=== PATIENT | female | born 1975 | race Caucasian/White ===

== ENCOUNTER 2018-02-07 10:00 | Emergency (ER) | payer OTHER, MEDICAID, SELFPAY ==
[2018-02-07 10:09] VITALS: BP 149/90; PULSE 72; RESP 14; TEMP 36.3; O2SAT 98
--- NOTE | 2018-02-07 10:24 | ED_ITS ---
HPI - Ear Problem General Chief complaint: Ear Stated complaint: Ear pain Time Seen by Provider: 02/07/18 10:11 Source: patient Mode of arrival: ambulatory Limitations: no limitations History of Present Illness HPI Narrative: The patient is a 42-year-old female who presents with bilateral ear pain which started yesterday. She says she feels like she can hear herself cough she has had cold. No throat pain no fever. She has no sinus congestion or facial tenderness. She denies cough or chest pain. MD Complaint: ear pain Location: bilateral Duration: constant Severity: mild Relieving factors: nothing Exacerbating factors: nothing Discharge from ear: no Associated symptoms ear: decreased hearing Treatment prior to arrival: none Related Data Home Medications Medication Instructions Recorded Confirmed [place] 5/16 Inch units SQ HS #50 08/07/16 12/03/17 Previous Rx's Medication Instructions Recorded cholecalciferol (vitamin D3) 1 tab PO QDAY #90 tab 02/29/16 [Vitamin D3] Lancets units QID #150 07/08/16 albuterol sulfate 3 ml INH Q6H #1 box 11/14/16 CPAP: CPAP/PAP Full Face Mask u #1 01/31/17 Glucose: Test Strips 0 str TD QID #200 str 05/02/17 albuterol sulfate HFA 90 2 puff INHALATION SEE INSTRUCTIONS 08/05/17 mcg/actuation aerosol inhaler PRN #1 gm aspirin 81 mg tablet,delayed 81 mg PO BID #30 tab 08/05/17 release clonazepam 1 mg tablet 1 mg PO BID #180 tab 08/05/17 divalproex 250 mg tablet,delayed 250 mg PO BID #60 tab 08/05/17 release fenofibrate 160 mg tablet 160 mg PO QDAY #90 tab 08/05/17 glyburide 5 mg tablet 5 mg PO BID #180 tab 08/05/17 insulin glargine (U-100) 100 40 unit SUBCUT HS #30 each 08/05/17 unit/mL (3 mL) subcutaneous pen lisinopril 5 mg tablet 5 mg PO QDAY #90 tab 08/05/17 metformin 500 mg tablet 1,000 mg PO BIDCC #120 tab 08/05/17 omeprazole 40 mg capsule,delayed 40 mg PO QAM #30 cap 08/05/17 release spironolactone 100 mg tablet 100 mg PO QDAY #30 tab 08/05/17 fluconazole 150 mg tablet 150 mg PO ONCE #2 tab 12/02/17 Allergies Allergy/AdvReac Type Severity Reaction Status Date / Time cephalexin [CEPHALEXIN] Allergy Mild rash Verified 12/02/17 15:46 ibuprofen [From Motrin] Allergy Mild Verified 02/07/18 10:12 latex [LATEX] Allergy Mild unknown Verified 12/02/17 15:46 Review of Systems Review of Systems GENERAL: Denies chills, fatigue, malaise, fever, sweats, travel HEENT: See HPI RESPIRATORY: Denies dyspnea, cough, wheezing, hemoptysis, sputum. CARDIOVASCULAR: Denies chest pain, palpitations, orthopnea, edema GASTROINTESTINAL: Denies nausea, vomiting, abdominal pain, diarrhea, constipation, melena. : Denies dysuria, frequency, incontinence, hematuria, urinary retention, flank pain. MUSCULOSKELETAL: Denies weakness, joint pain, or bony pain SKIN: No rash, no erythema, no pruritus NEUROLOGIC: Denies weakness, dizziness, headache, numbness, change in speech, confusion PSYCHIATRIC: No concerning psychosocial issues. 12 point review of systems is negative except for those stated above and HPI PFSH Medical History Anxiety (Chronic) Depression (Chronic) Diabetes mellitus (Chronic 2014) Sleep apnea (Chronic 2014) Social History Smoking Status: Current every day smoker Exam Initial Vital Signs Initial Vital Signs: Vital Signs Temperature 97.3 F L 02/07/18 10:09 Pulse Rate 72 02/07/18 10:09 Respiratory Rate 14 02/07/18 10:09 Blood Pressure 149/90 H 02/07/18 10:09 Pulse Oximetry 98 02/07/18 10:09 GENERAL: Overweight female in no acute distress HEENT: Head atraumatic,EOMI, pupils reactive, face symmetric, moist mucous membranes EARS: Tympanic membranes visualized, no erythema or bulging, no hemotympanum PHARYNX: No erythema, no tonsillar exudate, no cervical lymphadenopathy CARDIOVASCULAR: Regular rate and rhythm without murmurs, rubs or gallops. RESPIRATORY: Breath sounds equal bilaterally, no wheezes rales or rhonchi. ABDOMEN: Soft, nontender. Normoactive bowel sounds all 4 quadrants. No guarding or rebound. EXTREMITIES: Normal range of motion, no clubbing or edema. Neurovascularly intact NEUROLOGICAL: Alert and oriented x4.Normal gait and speech. SKIN: Warm, dry, no laceration, no petechiae, no rashes or lesions. Course Vital Signs - 8 hr 02/07/18 10:09 Temperature 97.3 F L Pulse Rate 72 Respiratory Rate 14 Blood Pressure 149/90 H Pulse Oximetry 98 Discharge Plan Departure Patient Disposition: Home Clinical Impression: Upper respiratory infection Discharge Date/Time: 02/07/18 10:31 Interventions: ED Discharge Assessment Last Done: 02/07/18 10:30 Instructions: DI for Viral Upper Respiratory Infection -- Adult Activity Restrictions/Additional Instructions: *You have been diagnosed with upper respiratory infection *What to do: At this time this is common cold, recommend rest and fluids. *Continue to take medications as directed Tylenol 650 mg every 4-6 hours if needed for pain or fever *Follow up with your primary care provider in 2-3 days *Return to ER if you should have or any new, worsening or concerning symptoms Prescriptions: No Action cholecalciferol (vitamin D3) [Vitamin D3] 2,000 UNIT tablet 1 tab PO QDAY Qty: 90 RF: 3 Lancets QID Qty: 150 RF: 11 [place] 5/16 Inch SQ HS Qty: 50 RF: 11 albuterol sulfate 2.5 MG/3 ML solution for nebulization 3 ml INH Q6H Qty: 1 RF: 1 CPAP: CPAP/PAP Full Face Mask Qty: 1 RF: 0 Glucose: Test Strips TD QID Qty: 200 RF: 11 clonazepam [Klonopin] 1 mg tablet 1 mg PO BID Qty: 180 RF: 0 divalproex [Depakote] 250 mg tablet,delayed release (DR/EC) 250 mg PO BID Qty: 60 RF: 11 fenofibrate 160 mg tablet 160 mg PO QDAY Qty: 90 RF: 3 glyburide 5 mg tablet 5 mg PO BID Qty: 180 RF: 3 insulin glargine [Basaglar KwikPen U-100 Insulin] 100 unit/mL (3 mL) insulin pen 40 unit SUBCUT HS Qty: 30 RF: 10 lisinopril [Zestril] 5 mg tablet 5 mg PO QDAY Qty: 90 RF: 6 metformin [Glucophage] 500 mg tablet 1,000 mg PO BIDCC Qty: 120 RF: 6 omeprazole 40 mg capsule,delayed release(DR/EC) 40 mg PO QAM Qty: 30 RF: 11 spironolactone [Aldactone] 100 mg tablet 100 mg PO QDAY Qty: 30 RF: 12 aspirin 81 mg tablet,delayed release (DR/EC) 81 mg PO BID Qty: 30 RF: 12 albuterol sulfate [Ventolin HFA] 90 mcg/actuation HFA aerosol inhaler 2 puff INHALATION SEE INSTRUCTIONS PRN (Reason: shortness of breath) Qty: 1 RF: 11 fluconazole 150 mg tablet 150 mg PO ONCE Qty: 2 RF: 0 Referrals: Adán Durbin MD [Primary Care Provider] - ED Cosign/Signout Cosign ED Attending Cosignature Attestation: I was immediately available in the department for consultation. Documentation has been reviewed. I agree with assessment and plan.
== END 2018-02-07 10:31 | disposition home or self-care (01) ==
PROVIDERS: Emergency Provider Emergency Medicine; Family Provider Family Medicine; PCP Student in an Organized Health Care Education/Training Program
DX: J06.9 Acute upper respiratory infection, unspecified (principal)
CPT/HCPCS: 99282

== ENCOUNTER 2018-04-08 17:57 | Emergency (ER) | payer OTHER, MEDICAID, SELFPAY ==
[2018-04-08] VITALS (10 sets, daily range): BP systolic 117–179; BP diastolic 62–104; PULSE 75–97; RESP 11–27; TEMP 37.2; O2SAT 94–99
--- NOTE | 2018-04-08 18:17 | DI.RAD.S_ITS ---
PROCEDURE: XR CHEST 1V INDICATIONS: chest pain, sob TECHNIQUE: One view of the chest was acquired. COMPARISON: [facility], , CHEST 2 VIEW, 11/14/2016, 9:59. FINDINGS: Surgical changes and devices: None. Lungs and pleura: Lungs are clear. No pleural effusions or pneumothorax. Mediastinum: Mediastinal contours appear normal. Heart size is mildly enlarged. Bones and chest wall: No suspicious bony lesions. Overlying soft tissues appear unremarkable. IMPRESSION: No acute pulmonary pathology. Dictated by: Neo Ndiaye M.D. on 04/08/2018 at 18:58 Approved by: Neo Ndiaye M.D. on 04/08/2018 at 19:00
--- NOTE | 2018-04-08 18:19 | ED.CHESTPAIN ---
HPI - Chest Pain General Chief Complaint: Chest Pain Stated Complaint: CHEST PAIN Time Seen by Provider: 04/08/18 18:06 Source: patient Mode of arrival: ambulatory Limitations: no limitations History of Present Illness HPI narrative: Patient is a 43-year-old female with history of hypertension, diabetes and smoking presenting with chest discomfort. She says it is heaviness on center of her chest over to her left side it started last evening. It has been constant throughout the day. It is without exacerbating or relieving factors. She says it does hurt every time she breathes or moves. She feels like she strained something but she is not sure what she did. She feels heaviness in the center of her chest. It is nonradiating. She also has some mild epigastric pain she feels like it is going up. No nausea vomiting. She denies any productive cough or significant shortness of breath. Although she does feel like she can't take a deep breath due to pain. MD complaint: chest pain Onset (ago): hour(s) Duration: constant Onset: during rest Pain location: substernal and left chest Severity: severe Quality: heaviness Pain radiation: none Relieving factors: nothing Exacerbating factors: nothing Treatments prior to arrival chest pain: none Related Data Home Medications Medication Instructions Recorded Confirmed [place] 5/16 Inch units SQ HS #50 08/07/16 12/03/17 Previous Rx's Medication Instructions Recorded cholecalciferol (vitamin D3) 1 tab PO QDAY #90 tab 02/29/16 [Vitamin D3] Lancets units QID #150 07/08/16 albuterol sulfate 3 ml INH Q6H #1 box 11/14/16 CPAP: CPAP/PAP Full Face Mask u #1 01/31/17 Glucose: Test Strips 0 str TD QID #200 str 05/02/17 albuterol sulfate HFA 90 2 puff INHALATION SEE INSTRUCTIONS 08/05/17 mcg/actuation aerosol inhaler PRN #1 gm aspirin 81 mg tablet,delayed 81 mg PO BID #30 tab 08/05/17 release clonazepam 1 mg tablet 1 mg PO BID #180 tab 08/05/17 divalproex 250 mg tablet,delayed 250 mg PO BID #60 tab 08/05/17 release fenofibrate 160 mg tablet 160 mg PO QDAY #90 tab 08/05/17 glyburide 5 mg tablet 5 mg PO BID #180 tab 08/05/17 insulin glargine (U-100) 100 40 unit SUBCUT HS #30 each 08/05/17 unit/mL (3 mL) subcutaneous pen lisinopril 5 mg tablet 5 mg PO QDAY #90 tab 08/05/17 metformin 500 mg tablet 1,000 mg PO BIDCC #120 tab 08/05/17 omeprazole 40 mg capsule,delayed 40 mg PO QAM #30 cap 08/05/17 release spironolactone 100 mg tablet 100 mg PO QDAY #30 tab 08/05/17 fluconazole 150 mg tablet 150 mg PO ONCE #2 tab 12/02/17 Allergies Allergy/AdvReac Type Severity Reaction Status Date / Time cephalexin [CEPHALEXIN] Allergy Mild rash Verified 04/08/18 18:05 ibuprofen [From Motrin] Allergy Mild Verified 04/08/18 18:05 latex [LATEX] Allergy Mild unknown Verified 04/08/18 18:05 Review of Systems Review of Systems ROS Unobtainable: All systems reviewed & are unremarkable except as noted in HPI and below Constitutional Denies chills, Denies fatigue, Denies fever(s), Denies lethargy and Denies weakness Cardiovascular Reports as per HPI Respiratory Denies cough, Denies hemoptysis and Denies wheezing Gastrointestinal Gastrointestinal: Denies abdominal pain, Denies change in bowel habits, Denies diarrhea, Denies nausea and Denies vomiting Genitourinary Denies hematuria, Denies flank pain, Denies urinary incontinence and Denies urinary urgency Musculoskeletal Denies back pain, Denies muscle weakness, Denies numbness and Denies tingling Integumentary/Breasts Denies pruritus, Denies erythema, Denies rash and Denies wounds Neurologic Denies confusion, Denies numbness, Denies tingling and Denies weakness Psychiatric Denies anxiety, Denies confusion, Denies depression, Denies homicidal ideation and Denies suicidal ideation Endocrine Denies fatigue and Denies flushing Allergic/Immunologic Denies wheezing [facility] Medical History Anxiety (Chronic) Depression (Chronic) Diabetes mellitus (Chronic 2014) Sleep apnea (Chronic 2014) Social History Smoking Status: Current every day smoker Social History Smoking Status: Current every day smoker Exam Initial Vital Signs Initial Vital Signs: Vital Signs Temperature 98.9 F 04/08/18 17:58 Pulse Rate 89 04/08/18 17:58 Respiratory Rate 12 04/08/18 17:58 Blood Pressure 179/104 H 04/08/18 17:58 Pulse Oximetry 97 04/08/18 17:58 GENERAL: Overweight alert female no acute distress HEENT: Head atraumatic,EOMI, pupils reactive, CARDIOVASCULAR: Regular rate and rhythm without murmurs, rubs or gallops. RESPIRATORY: Breath sounds equal bilaterally, no wheezes rales or rhonchi. ABDOMEN: Soft, obese, mild epigastric pain mild right upper quadrant pain no guarding no rebound is no lower abdominal pain EXTREMITIES: Normal range of motion, no clubbing or edema. Neurovascularly intact NEUROLOGICAL: Alert and oriented x4.Normal gait and speech. SKIN: Warm, dry, no laceration, no petechiae, no rashes or lesions. Scores HEART Score Heart Score history: Slightly Suspicious Heart Score EKG: Normal Heart Score Age: < 45 years old Heart Score risk factors: > 3 risk factors or hx of atherosclerotic disease Heart Score troponin: < or = to normal limit Heart Score Total: 2 Course Orders Ordered: ED Orders 04/08/18 18:04 EKG-12 Lead Stat EKG-12 Lead Stat 04/08/18 18:17 XR chest 1V Stat 04/08/18 18:45 B Type Natriuretic Peptide Stat Complete Blood Count AUTO DIFF Stat Comprehensive Metabolic Panel Stat Lipase Stat Partial Thromboplastin Time Stat Prothrombin Time INR Stat Troponin & CK Cardiac Panel Stat 04/08/18 19:40 EKG-12 Lead Stat 04/08/18 21:00 Troponin I Stat Discontinued Medications Acetaminophen (Tylenol) 975 mg PO NOW ONE Stop: 04/08/18 21:59 Last Admin: 04/08/18 22:24 Dose: 975 mg Albuterol/Ipratropium (Duoneb) 3 ml INH NOW ONE Stop: 04/08/18 18:18 Last Admin: 04/08/18 18:36 Dose: 3 ml Aspirin (Aspirin Chew) 324 mg PO NOW ONE Stop: 04/08/18 18:18 Last Admin: 04/08/18 18:46 Dose: 324 mg Morphine Sulfate (Morphine) 2 mg IV NOW ONE Stop: 04/08/18 19:16 Last Admin: 04/08/18 19:26 Dose: 2 mg Nitroglycerin (Nitrostat) 0.4 mg SL NOW ONE Stop: 04/08/18 18:19 Last Admin: 04/08/18 19:02 Dose: 0.4 mg Vital Signs - 8 hr 04/08/18 17:58 04/08/18 18:30 04/08/18 18:37 Temperature 98.9 F Pulse Rate 89 86 87 Respiratory Rate 12 11 L 18 Blood Pressure 179/104 H Blood Pressure [Right Wrist] 158/93 H Pulse Oximetry 97 96 99 04/08/18 19:02 04/08/18 19:30 04/08/18 20:00 Temperature Pulse Rate 97 H 75 82 Respiratory Rate 21 27 H Blood Pressure 145/62 H Blood Pressure [Right Wrist] 138/88 134/75 Pulse Oximetry 97 97 04/08/18 20:30 04/08/18 21:00 04/08/18 21:30 Temperature Pulse Rate 91 H 86 80 Respiratory Rate 21 20 22 Blood Pressure Blood Pressure [Right Wrist] 128/80 151/94 H 117/75 Pulse Oximetry 94 96 96 04/08/18 22:30 Temperature Pulse Rate 87 Respiratory Rate 18 Blood Pressure 149/95 H Blood Pressure [Right Wrist] Pulse Oximetry 96 MDM - Chest Pain Differential Diagnosis Likely other ( I have considered several life threatening etiologies for the patients Chest pain such as acute coronary syndrome, aortic dissection, pulmonary emboli and this patients presentation is not consistent with such entities and therefore , no further testing was warranted. ) Lab Data Attestation: I reviewed the patient's lab results. Result diagrams: 04/08/18 18:45 04/08/18 18:45 Lab Results 04/08/18 04/08/18 04/08/18 Range/Units 18:45 18:45 18:45 WBC 10.4 (4.5-11.0) X10^3/uL RBC 4.86 (4.0-5.2) X10^6/uL Hgb 15.1 (12.0-16.0) g/dL Hct 42.8 (36-46) % MCV 88.0 (80-100) fL MCH 31.2 (26-34) PG MCHC 35.4 (30-36) % RDW 14.2 (11.6-14.8) % Plt Count 283 (150-400) X10^3/uL Neut % (Auto) 69.9 (50-75) % Lymph % (Auto) 24.6 L (25-40) % [place] % (Auto) 3.0 (3-14) % Eos % (Auto) 1.4 L (2-4) % Baso % (Auto) 1.1 (0-2) % Neut # (Auto) 7300 H (2132-1251) /uL Lymph # (Auto) 2600 (8077-7080) /uL [place] # (Auto) 300 (0-900) /uL Eos # (Auto) 100 (0-450) /uL Baso # (Auto) 100 (0-100) /uL PT TNP INR TNP APTT TNP Sodium 132 L (137-145) mmol/L Potassium 4.1 (3.4-5.1) mmol/L Chloride 98 (98-107) mmol/L Carbon Dioxide 22 (22-32) mmol/L BUN 11 (7-17) mg/dL Creatinine 0.50 L (0.52-1.04) mg/dL Estimated GFR > 60.0 (>60) mL/min BUN/Creatinine Ratio 22.0 (6-22) Glucose 352 H (70-100) mg/dL Calcium 8.8 (8.4-10.2) mg/dL Total Bilirubin 0.9 (0.2-1.3) mg/dL AST 24 (14-36) IU/L ALT 31 (9-52) IU/L Alkaline Phosphatase 81 (38-126) U/L Total Creatine Kinase 33 (30-135) U/L CK-MB (CK-2) TNP CK-MB (CK-2) Rel Index TNP Troponin I < 0.012 (0.01-0.034) ng/mL B-Natriuretic Peptide < 100 (<100) Total Protein 7.6 (6.3-8.2) g/dL Albumin 3.9 (3.5-5.0) g/dL Globulin 3.7 (1.7-4.1) g/dL Albumin/Globulin Ratio 1.1 (1.0-2.8) Lipase 137 (23-300) U/L 02/13/19 Range/Units 21:00 WBC (4.5-11.0) X10^3/uL RBC (4.0-5.2) X10^6/uL Hgb (12.0-16.0) g/dL Hct (36-46) % MCV (80-100) fL MCH (26-34) PG MCHC (30-36) % RDW (11.6-14.8) % Plt Count (150-400) X10^3/uL Neut % (Auto) (50-75) % Lymph % (Auto) (25-40) % [place] % (Auto) (3-14) % Eos % (Auto) (2-4) % Baso % (Auto) (0-2) % Neut # (Auto) (5295-3550) /uL Lymph # (Auto) (4314-5539) /uL [place] # (Auto) (0-900) /uL Eos # (Auto) (0-450) /uL Baso # (Auto) (0-100) /uL PT INR APTT Sodium (137-145) mmol/L Potassium (3.4-5.1) mmol/L Chloride (98-107) mmol/L Carbon Dioxide (22-32) mmol/L BUN (7-17) mg/dL Creatinine (0.52-1.04) mg/dL Estimated GFR (>60) mL/min BUN/Creatinine Ratio (6-22) Glucose (70-100) mg/dL Calcium (8.4-10.2) mg/dL Total Bilirubin (0.2-1.3) mg/dL AST (14-36) IU/L ALT (9-52) IU/L Alkaline Phosphatase (38-126) U/L Total Creatine Kinase (30-135) U/L CK-MB (CK-2) CK-MB (CK-2) Rel Index Troponin I < 0.012 (0.01-0.034) ng/mL B-Natriuretic Peptide (<100) Total Protein (6.3-8.2) g/dL Albumin (3.5-5.0) g/dL Globulin (1.7-4.1) g/dL Albumin/Globulin Ratio (1.0-2.8) Lipase (23-300) U/L Urine Dip Bedside Urine Glucose 1000 mg/dl Bedside Urine Bilirubin - Negative Bedside Urine Ketone - Negative Urine Specific [place] 1.020 Bedside Urine Occult Blood - Negative Bedside Urine pH 6.0 Bedside Urine Protein - Negative Bedside Urine Urobilinogen - Negative Bedside Urine Nitrite - Negative Bedside Urine Leukocytes - Negative Esterase Imaging Data Chest x-ray: Radiologist's impression: PROCEDURE: XR CHEST 1V INDICATIONS: chest pain, sob TECHNIQUE: One view of the chest was acquired. COMPARISON: [facility], CHEST 2 VIEW, 11/14/2016, 9:59. FINDINGS: Surgical changes and devices: None. Lungs and pleura: Lungs are clear. No pleural effusions or pneumothorax. Mediastinum: Mediastinal contours appear normal. Heart size is mildly enlarged. Bones and chest wall: No suspicious bony lesions. Overlying soft tissues appear unremarkable. IMPRESSION: No acute pulmonary pathology. Dictated by: Neo Ndiaye M.D. on 04/08/2018 at 18:58 ECG Data Attestation: I personally reviewed and interpreted this ECG as follows: Prior ECG tracings: available for review Interpretation: EKG 1.: Normal sinus rhythm rate 81 NM interval 173 T-wave inversions noted in V2 and V3 which were present in previous EKGs in 2012. no ST elevations or depressions. EKG 2. Sinus rhythm rate 96 persistent T-wave inversions in V2 and V3 no ST elevations or depressions unchanged from prior MDM Narrative Medical decision making narrative: The patient had no relief with albuterol or nitro. She was given morphine which she said definitely took the edge off. This hurts every time she breathes or moves, this is consistent more with musculoskeletal pain rather than cardiac. She slipped on the ice yesterday but caught herself. She feels like maybe she pulled a muscle. Lab did call and say she has extreme lipema and unable to perform coagulation test. Patient states that she is only taking her insulin not her blood pressure or cholesterol medication. She does not like the way they make her feel. 10 pm 2 troponins are negative. Patient has been relatively chest pain-free until now. she says the pain is starting to come back. We discussed admission. My concern with her is that she is noncompliant she does have a like lipemia in the blood and has multiple risk factors. Discussed with her her blood work. patient's chest pain does sound musculoskeletal. it is reproducible with movement, not relieved with albuterol, or nitroglycerin or aspirin. patient states that she needs to go home and take care of her mother and go to [place] tomorrow. She really is not want to stay. She understands the risk of heart attack. We discussed how that she needs to stop at nearest hospital if she is having any further chest pain. I discussed all findings with the patient. Education has been performed regarding treatment plan, diagnosis, warning signs and symptoms and all concerns have been addressed. Verbally agree with and understood all of the above. The patient is clinically sober, free from distracting injury, appears to have intact insight, judgment and reason. Does not meet criteria for involuntary hospitalization. Patient has the capacity to make decisions. Discharge Plan Departure Patient Disposition: Home Clinical Impression: Atypical chest pain Discharge Date/Time: 04/08/18 22:31 Interventions: ED Discharge Assessment Last Done: 04/08/18 22:30 Instructions: DI for Atypical Chest Pain Activity Restrictions/Additional Instructions: *You have been diagnosed with atypical chest pain *What to do: - IS RECOMMENDED THAT YOU STAY FOR OBSERVATION AND FURTHER CARDIAC TESTING -you do need further heart evaluation such as a stress test. yOU also need to restart taking your cholesterol and blood pressure medicine as prescribed. Your cholesterol is likely uncontrolled and may contribute to higher risk of heart attack *Continue to take medications as directed *Follow up with your primary care provider in 2-3 days *Return to ER if you should have increasing chest pain, shortness of breath, difficulty breathing or any new, worsening or concerning symptoms IF YOU SHOULD HAVE ANY INCREASED CHEST PAIN OR SHORTNESS OF BREATH AT ANY TIME PLEASE GO TO THE NEAREST HOSPITAL IMMEDIATELY FOR EVALUATION Prescriptions: No Action cholecalciferol (vitamin D3) [Vitamin D3] 2,000 UNIT tablet 1 tab PO QDAY Qty: 90 RF: 3 Lancets QID Qty: 150 RF: 11 [place] 5/16 Inch SQ HS Qty: 50 RF: 11 albuterol sulfate 2.5 MG/3 ML solution for nebulization 3 ml INH Q6H Qty: 1 RF: 1 CPAP: CPAP/PAP Full Face Mask Qty: 1 RF: 0 Glucose: Test Strips TD QID Qty: 200 RF: 11 clonazepam [Klonopin] 1 mg tablet 1 mg PO BID Qty: 180 RF: 0 divalproex [Depakote] 250 mg tablet,delayed release (DR/EC) 250 mg PO BID Qty: 60 RF: 11 fenofibrate 160 mg tablet 160 mg PO QDAY Qty: 90 RF: 3 glyburide 5 mg tablet 5 mg PO BID Qty: 180 RF: 3 insulin glargine [Basaglar KwikPen U-100 Insulin] 100 unit/mL (3 mL) insulin pen 40 unit SUBCUT HS Qty: 30 RF: 10 lisinopril [Zestril] 5 mg tablet 5 mg PO QDAY Qty: 90 RF: 6 metformin [Glucophage] 500 mg tablet 1,000 mg PO BIDCC Qty: 120 RF: 6 omeprazole 40 mg capsule,delayed release(DR/EC) 40 mg PO QAM Qty: 30 RF: 11 spironolactone [Aldactone] 100 mg tablet 100 mg PO QDAY Qty: 30 RF: 12 aspirin 81 mg tablet,delayed release (DR/EC) 81 mg PO BID Qty: 30 RF: 12 albuterol sulfate [Ventolin HFA] 90 mcg/actuation HFA aerosol inhaler 2 puff INHALATION SEE INSTRUCTIONS PRN (Reason: shortness of breath) Qty: 1 RF: 11 fluconazole 150 mg tablet 150 mg PO ONCE Qty: 2 RF: 0 Referrals: Adán Durbin MD [Primary Care Provider] -
--- NOTE | 2018-04-08 18:23 | ED_ITS ---
HPI - Chest Pain General Chief Complaint: Chest Pain Stated Complaint: CHEST PAIN Time Seen by Provider: 04/08/18 18:06 Source: patient Mode of arrival: ambulatory Limitations: no limitations History of Present Illness HPI narrative: Patient is a 43-year-old female with history of hypertension, diabetes and smoking presenting with chest discomfort. She says it is heaviness on center of her chest over to her left side it started last evening. It has been constant throughout the day. It is without exacerbating or relieving factors. She says it does hurt every time she breathes or moves. She feels like she strained something but she is not sure what she did. She feels heaviness in the center of her chest. It is nonradiating. She also has some mild epigastric pain she feels like it is going up. No nausea vomiting. She denies any productive cough or significant shortness of breath. Although she do es feel like she can't take a deep breath due to pain. MD complaint: chest pain Onset (ago): hour(s) Duration: constant Onset: during rest Pain location: substernal and left chest Severity: severe Quality: heaviness Pain radiation: none Relieving factors: nothing Exacerbating factors: nothing Treatments prior to arrival chest pain: none Related Data Home Medications Medication Instructions Recorded Confirmed Gillett 5/16 Inch units SQ HS #50 08/07/16 12/03/17 Previous Rx's Medication Instructions Recorded cholecalciferol (vitamin D3) 1 tab PO QDAY #90 tab 02/29/16 [Vitamin D3] Lancets units QID #150 07/08/16 albuterol sulfate 3 ml INH Q6H #1 box 11/14/16 CPAP: CPAP/PAP Full Face Mask u #1 01/31/17 Glucose: Test Strips 0 str TD QID #200 str 05/02/17 albuterol sulfate HFA 90 2 puff INHALATION SEE INSTRUCTIONS 08/05/17 mcg/actuation aerosol inhaler PRN #1 gm aspirin 81 mg tablet,delayed 81 mg PO BID #30 tab 08/05/17 release clonazepam 1 mg tablet 1 mg PO BID #180 tab 08/05/17 divalproex 250 mg tablet,delayed 250 mg PO BID #60 tab 08/05/17 release fenofibrate 160 mg tablet 160 mg PO QDAY #90 tab 08/05/17 glyburide 5 mg tablet 5 mg PO BID #180 tab 08/05/17 insulin glargine (U-100) 100 40 unit SUBCUT HS #30 each 08/05/17 unit/mL (3 mL) subcutaneous pen lisinopril 5 mg tablet 5 mg PO QDAY #90 tab 08/05/17 metformin 500 mg tablet 1,000 mg PO BIDCC #120 tab 08/05/17 omeprazole 40 mg capsule,delayed 40 mg PO QAM #30 cap 08/05/17 release spironolactone 100 mg tablet 100 mg PO QDAY #30 tab 08/05/17 fluconazole 150 mg tablet 150 mg PO ONCE #2 tab 12/02/17 Allergies Allergy/AdvReac Type Severity Reaction Status Date / Time cephalexin [CEPHALEXIN] Allergy Mild rash Verified 04/08/18 18:05 ibuprofen [From Motrin] Allergy Mild Verified 04/08/18 18:05 latex [LATEX] Allergy Mild unknown Verified 04/08/18 18:05 Review of Systems Review of Systems ROS Unobtainable: All systems reviewed & are unremarkable except as noted in HPI and below Constitutional Denies chills, Denies fatigue, Denies fever(s), Denies lethargy and Denies weakness Cardiovascular Reports as per HPI Respiratory Denies cough, Denies hemoptysis and Denies wheezing Gastrointestinal Gastrointestinal: Denies abdominal pain, Denies change in bowel habits, Denies diarrhea, Denies nausea and Denies vomiting Genitourinary Denies hematuria, Denies flank pain, Denies urinary incontinence and Denies uri nary urgency Musculoskeletal Denies back pain, Denies muscle weakness, Denies numbness and Denies tingling Integumentary/Breasts Denies pruritus, Denies erythema, Denies rash and Denies wounds Neurologic Denies confusion, Denies numbness, Denies tingling and Denies weakness Psychiatric Denies anxiety, Denies confusion, Denies depression, Denies homicidal ideation and Denies suicidal ideation Endocrine Denies fatigue and Denies flushing Allergic/Immunologic Denies wheezing [facility] Medical History Anxiety (Chronic) Depression (Chronic) Diabetes mellitus (Chronic 2014) Sleep apnea (Chronic 2014) Social History Smoking Status: Current every day smoker Social History Smoking Status: Current every day smoker Exam Initial Vital Signs Initial Vital Signs: Vital Signs Temperature 98.9 F 04/08/18 17:58 Pulse Rate 89 04/08/18 17:58 Respiratory Rate 12 04/08/18 17:58 Blood Pressure 179/104 H 04/08/18 17:58 Pulse Oximetry 97 04/08/18 17:58 GENERAL: Overweight alert female no acute distress HEENT: Head atraumatic,EOMI, pupils reactive, CARDIOVASCULAR: Regular rate and rhythm without murmurs, rubs or gallops. RESPIRATORY: Breath sounds equal bilaterally, no wheezes rales or rhonchi. ABDOMEN: Soft, obese, mild epigastric pain mild right upper quadrant pain no guarding no rebound is no lower abdominal pain EXTREMITIES: Normal range of motion, no clubbing or edema. Neurovascularly intact NEUROLOGICAL: Alert and oriented x4.Normal gait and speech. SKIN: Warm, dry, no laceration, no petechiae, no rashes or lesions. Scores HEART Score Heart Score history: Slightly Suspicious Heart Score EKG: Normal Heart Score Age: < 45 years old Heart Score risk factors: > 3 risk factors or hx of atherosclerotic disease Heart Score troponin: < or = to normal limit Heart Score Total: 2 Course Orders Ordered: ED Orders 04/08/18 18:04 EKG-12 Lead Stat EKG-12 Lead Stat 04/08/18 18:17 XR chest 1V Stat 04/08/18 18:45 B Type Natriuretic Peptide Stat Complete Blood Count AUTO DIFF Stat Comprehensive Metabolic Panel Stat Lipase Stat Partial Thromboplastin Time Stat Prothrombin Time INR Stat Troponin & CK Cardiac Panel Stat 04/08/18 19:40 EKG-12 Lead Stat 04/08/18 21:00 Troponin I Stat Discontinued Medications Acetaminophen (Tylenol) 975 mg PO NOW ONE Stop: 04/08/18 21:59 Last Admin: 04/08/18 22:24 Dose: 975 mg Albuterol/Ipratropium (Duoneb) 3 ml INH NOW ONE Stop: 04/08/18 18:18 Last Admin: 04/08/18 18:36 Dose: 3 ml Aspirin (Aspirin Chew) 324 mg PO NOW ONE Stop: 04/08/18 18:18 Last Admin: 04/08/18 18:46 Dose: 324 mg Morphine Sulfate (Morphine) 2 mg IV NOW ONE Stop: 04/08/18 19:16 Last Admin: 04/08/18 19:26 Dose: 2 mg Nitroglycerin (Nitrostat) 0.4 mg SL NOW ONE Stop: 04/08/18 18:19 Last Admin: 04/08/18 19:02 Dose: 0.4 mg Vital Signs - 8 hr 04/08/18 17:58 04/08/18 18:30 04/08/18 18:37 Temperature 98.9 F Pulse Rate 89 86 87 Respiratory Rate 12 11 L 18 Blood Pressure 179/104 H Blood Pressure [Right Wrist] 158/93 H Pulse Oximetry 97 96 99 04/08/18 19:02 04/08/18 19:30 04/08/18 20:00 Temperature Pulse Rate 97 H 75 82 Respiratory Rate 21 27 H Blood Pressure 145/62 H Blood Pressure [Right Wrist] 138/88 134/75 Pulse Oximetry 97 97 04/08/18 20:30 04/08/18 21:00 04/08/18 21:30 Temperature Pulse Rate 91 H 86 80 Respiratory Rate 21 20 22 Blood Pressure Blood Pressure [Right Wrist] 128/80 151/94 H 117/75 Pulse Oximetry 94 96 96 04/08/18 22:30 Temperature Pulse Rate 87 Respiratory Rate 18 Blood Pressure 149/95 H Blood Pressure [Right Wrist] Pulse Oximetry 96 MDM - Chest Pain Differential Diagnosis Likely other ( I have considered several life threatening etiologies for the patients Chest pain such as acute coronary syndrome, aortic dissection, pulmonary emboli and this patients presentation is not consistent with such entities and therefore , no further testing was warranted. ) Lab Data Attestation: I reviewed the patient's lab results. Result diagrams: 04/08/18 18:45 04/08/18 18:45 Lab Results 04/08/18 04/08/18 04/08/18 Range/Units 18:45 18:45 18:45 WBC 10.4 (4.5-11.0) X10^3/uL RBC 4.86 (4.0-5.2) X10^6/uL Hgb 15.1 (12.0-16.0) g/dL Hct 42.8 (36-46) % MCV 88.0 (80-100) fL MCH 31.2 (26-34) PG MCHC 35.4 (30-36) % RDW 14.2 (11.6-14.8) % Plt Count 283 (150-400) X10^3/uL Neut % (Auto) 69.9 (50-75) % Lymph % (Auto) 24.6 L (25-40) % [place] % (Auto) 3.0 (3-14) % Eos % (Auto) 1.4 L (2-4) % Baso % (Auto) 1.1 (0-2) % Neut # (Auto) 7300 H (5395-1411) /uL Lymph # (Auto) 2600 (0158-2282) /uL [place] # (Auto) 300 (0-900) /uL Eos # (Auto) 100 (0-450) /uL Baso # (Auto) 100 (0-100) /uL PT TNP INR TNP APTT TNP Sodium 132 L (137-145) mmol/L Potassium 4.1 (3.4-5.1) mmol/L Chloride 98 (98-107) mmol/L Carbon Dioxide 22 (22-32) mmol/L BUN 11 (7-17) mg/dL Creatinine 0.50 L (0.52-1.04) mg/dL Estimated GFR > 60.0 (>60) mL/min BUN/Creatinine Ratio 22.0 (6-22) Glucose 352 H (70-100) mg/dL Calcium 8.8 (8.4-10.2) mg/dL Total Bilirubin 0.9 (0.2-1.3) mg/dL AST 24 (14-36) IU/L ALT 31 (9-52) IU/L Alkaline Phosphatase 81 (38-126) U/L Total Creatine Kinase 33 (30-135) U/L CK-MB (CK-2) TNP CK-MB (CK-2) Rel Index TNP Troponin I < 0.012 (0.01-0.034) ng/mL B-Natriuretic Peptide < 100 (<100) Total Protein 7.6 (6.3-8.2) g/dL Albumin 3.9 (3.5-5.0) g/dL Globulin 3.7 (1.7-4.1) g/dL Albumin/Globulin Ratio 1.1 (1.0-2.8) Lipase 137 (23-300) U/L 04/08/18 Range/Units 21:00 WBC (4.5-11.0) X10^3/uL RBC (4.0-5.2) X10^6/uL Hgb (12.0-16.0) g/dL Hct (36-46) % MCV (80-100) fL MCH (26-34) PG MCHC (30-36) % RDW (11.6-14.8) % Plt Count (150-400) X10^3/uL Neut % (Auto) (50-75) % Lymph % (Auto) (25-40) % [place] % (Auto) (3-14) % Eos % (Auto) (2-4) % Baso % (Auto) (0-2) % Neut # (Auto) (7666-3294) /uL Lymph # (Auto) (9877-7636) /uL [place] # (Auto) (0-900) /uL Eos # (Auto) (0-450) /uL Baso # (Auto) (0-100) /uL PT INR APTT Sodium (137-145) mmol/L Potassium (3.4-5.1) mmol/L Chloride (98-107) mmol/L Carbon Dioxide (22-32) mmol/L BUN (7-17) mg/dL Creatinine (0.52-1.04) mg/dL Estimated GFR (>60) mL/min BUN/Creatinine Ratio (6-22) Glucose (70-100) mg/dL Calcium (8.4-10.2) mg/dL Total Bilirubin (0.2-1.3) mg/dL AST (14-36) IU/L ALT (9-52) IU/L Alkaline Phosphatase (38-126) U/L Total Creatine Kinase (30-135) U/L CK-MB (CK-2) CK-MB (CK-2) Rel Index Troponin I < 0.012 (0.01-0.034) ng/mL B-Natriuretic Peptide (<100) Total Protein (6.3-8.2) g/dL Albumin (3.5-5.0) g/dL Globulin (1.7-4.1) g/dL Albumin/Globulin Ratio (1.0-2.8) Lipase (23-300) U/L Urine Dip Bedside Urine Glucose 1000 mg/dl Bedside Urine Bilirubin - Negative Bedside Urine Ketone - Negative Urine Specific [place] 1.020 Bedside Urine Occult Blood - Negative Bedside Urine pH 6.0 Bedside Urine Protein - Negative Bedside Urine Urobilinogen - Negative Bedside Urine Nitrite - Negative Bedside Urine Leukocytes - Negative Esterase Imaging Data Chest x-ray: Radiologist's impression: PROCEDURE: XR CHEST 1V INDICATIONS: chest pain, sob TECHNIQUE: One view of the chest was acquired. COMPARISON: [facility], CHEST 2 VIEW, 11/14/2016, 9:59. FINDINGS: Surgical changes and devices: None. Lungs and pleura: Lungs are clear. No pleural effusions or pneumothorax. Mediastinum: Mediastinal contours appear normal. Heart size is mildly enlarged. Bones and chest wall: No suspicious bony lesions. Overlying soft tissues appear unremarkable. IMPRESSION: No acute pulmonary pathology. Dictated by: Neo Ndiaye M.D. on 04/08/2018 at 18:58 ECG Data Attestation: I personally reviewed and interpreted this ECG as follows: Prior ECG tracings: available for review Interpretation: EKG 1.: Normal sinus rhythm rate 81 UT interval 173 T-wave inversions noted in V2 and V3 which were present in previous EKGs in 2013. no ST elevations or depressions. EKG 2. Sinus rhythm rate 96 persistent T-wave inversions in V2 and V3 no ST elevations or depressions unchanged from prior MDM Narrative Medical decision making narrative: The patient had no relief with albuterol or nitro. She was given morphine which she said definitely took the edge off. This hurts every time she breathes or moves, this is consistent more with musculoskeletal pain rather than cardiac. She slipped on the ice yesterday but caught herself. She feels like maybe she pulled a muscle. Lab did call and say she has extreme lipema and unable to perform coagulation test. Patient states that she is only taking her insulin not her blood pressure or cholesterol medication. She does not like the way they make her feel. 10 pm 2 troponins are negative. Patient has been relatively chest pain-free until now. she says the pain is starting to come back. We discussed admission. My concern with her is that she is noncompliant she does have a like lipemia in the blood and has multiple risk factors. Discussed with her her blood work. patient's chest pain does sound musculoskeletal. it is reproducible with movement, not relieved with albuterol, or nitroglycerin or aspirin. patient states that she needs to go home and take care of her mother and go to [place] tomorrow. She really is not want to stay. She understands the risk of heart attack. We discussed how that she needs to stop at nearest hospital if she is having any further chest pain. I discussed all findings with the patient. Education has been performed regarding treatment plan, diagnosis, warning signs and symptoms and all concerns have been addressed. Verbally agree with and understood all of the above. The patient is clinically sober, free from distracting injury, appears to have intact insight, judgment and reason. Does not meet criteria for involuntary hospitalization. Patient has the capacity to make decisions. Discharge Plan Departure Patient Disposition: Home Clinical Impression: Atypical chest pain Discharge Date/Time: 04/08/18 22:31 Interventions: ED Discharge Assessment Last Done: 04/08/18 22:30 Instructions: DI for Atypical Chest Pain Activity Restrictions/Additional Instructions: *You have been diagnosed with atypical chest pain *What to do: - IS RECOMMENDED THAT YOU STAY FOR OBSERVATION AND FURTHER CARDIAC TESTING -you do need further heart evaluation such as a stress test. yOU also need to restart taking your cholesterol and blood pressure medicine as prescribed. Your cholesterol is likely uncontrolled and may contribute to higher risk of heart attack *Continue to take medications as directed *Follow up with your primary care provider in 2-3 days *Return to ER if you should have increasing chest pain, shortness of breath, difficulty breathing or any new, worsening or concerning symptoms IF YOU SHOULD HAVE ANY INCREASED CHEST PAIN OR SHORTNESS OF BREATH AT ANY TIME PLEASE GO TO THE NEAREST HOSPITAL IMMEDIATELY FOR EVALUATION Prescriptions: No Action cholecalciferol (vitamin D3) [Vitamin D3] 2,000 UNIT tablet 1 tab PO QDAY Qty: 90 RF: 3 Lancets QID Qty: 150 RF: 11 Gillett 5/16 Inch SQ HS Qty: 50 RF: 11 albuterol sulfate 2.5 MG/3 ML solution for nebulization 3 ml INH Q6H Qty: 1 RF: 1 CPAP: CPAP/PAP Full Face Mask Qty: 1 RF: 0 Glucose: Test Strips TD QID Qty: 200 RF: 11 clonazepam [Klonopin] 1 mg tablet 1 mg PO BID Qty: 180 RF: 0 divalproex [Depakote] 250 mg tablet,delayed release (DR/EC) 250 mg PO BID Qty: 60 RF: 11 fenofibrate 160 mg tablet 160 mg PO QDAY Qty: 90 RF: 3 glyburide 5 mg tablet 5 mg PO BID Qty: 180 RF: 3 insulin glargine [Basaglar KwikPen U-100 Insulin] 100 unit/mL (3 mL) insulin pen 40 unit SUBCUT HS Qty: 30 RF: 10 lisinopril [Zestril] 5 mg tablet 5 mg PO QDAY Qty: 90 RF: 6 metformin [Glucophage] 500 mg tablet 1,000 mg PO BIDCC Qty: 120 RF: 6 omeprazole 40 mg capsule,delayed release(DR/EC) 40 mg PO QAM Qty: 30 RF: 11 spironolactone [Aldactone] 100 mg tablet 100 mg PO QDAY Qty: 30 RF: 12 aspirin 81 mg tablet,delayed release (DR/EC) 81 mg PO BID Qty: 30 RF: 12 albuterol sulfate [Ventolin HFA] 90 mcg/actuation HFA aerosol inhaler 2 puff INHALATION SEE INSTRUCTIONS PRN (Reason: shortness of breath) Qty: 1 RF: 11 fluconazole 150 mg tablet 150 mg PO ONCE Qty: 2 RF: 0 Referrals: Adán Durbin MD [Primary Care Provider] -
[2018-04-08] MEDS: ALBUTEROL/IPRATROPIUM 3 ML AMPUL INH (18:36)
[2018-04-08] MEDS: ASPIRIN 81 MG TAB 324 MG PO (18:46)
[2018-04-08] MEDS: NITROGLYCERIN 0.4 MG SL TAB SL (19:02)
[2018-04-08 19:08] LABS: Alanine Aminotransferase 31 IU/L (9-52); Albumin 3.9 g/dL (3.5-5.0); Albumin Globulin Ratio 1.1 (1.0-2.8); Alkaline Phosphatase 81 U/L (38-126); Aspartate Aminotransferase 24 IU/L (14-36); Bilirubin Total 0.9 mg/dL (0.2-1.3); Blood Urea Nitrogen 11 mg/dL (7-17); Calcium 8.8 mg/dL (8.4-10.2); Carbon Dioxide 22 mmol/L (22-32); Chloride 98 mmol/L (98-107); Creatine Kinase 33 U/L (30-135); Estimated Glomerular Filt Rate > 60.0 mL/min (>60); Globulin 3.7 g/dL (1.7-4.1); Glucose 352 mg/dL (70-100); Lipase 137 U/L (23-300); Potassium 4.1 mmol/L (3.4-5.1); Sodium 132 mmol/L (137-145); Total Protein 7.6 g/dL (6.3-8.2)
[2018-04-08 19:10] LABS: HEMOLYSIS 153 (0-50)
[2018-04-08 19:15] LABS: Add Manual Diff / Slide Review NO; Basophils Absolute Auto 100 /uL (0-100); Basophils Percent Auto 1.1 % (0-2); Eosinophils Absolute Auto 100 /uL (0-450); Eosinophils Percent Auto 1.4 % (2-4); Hematocrit 42.8 % (36-46); Hemoglobin 15.1 g/dL (12.0-16.0); Lymphocytes Absolute Auto 2600 /uL (1100-4500); Lymphocytes Percent Auto 24.6 % (25-40); Mean Corpuscular HGB Conc 35.4 % (30-36); Mean Corpuscular Hemoglobin 31.2 PG (26-34); Monocytes Absolute Auto 300 /uL (0-900); Neutrophils Absolute Auto 7300 /uL (1500-7000); Neutrophils Percent Auto 69.9 % (50-75); Platelet Count 283 X10^3/uL (150-400); Red Blood Cell Count 4.86 X10^6/uL (4.0-5.2); Red Cell Distribution Width 14.2 % (11.6-14.8)
[2018-04-08 19:16] LABS: White Blood Cell Count 10.4 X10^3/uL (4.5-11.0)
[2018-04-08 19:20] LABS: Troponin I < 0.012 ng/mL (0.01-0.034)
[2018-04-08] MEDS: MORPHINE 2 MG/ML INJ IV (19:26)
[2018-04-08 19:27] LABS: B Type Natriuretic Peptide < 100 (<100)
[2018-04-08 21:38] LABS: Troponin I < 0.012 ng/mL (0.01-0.034)
[2018-04-08] MEDS: ACETAMINOPHEN 325 MG TABLET 975 MG PO (22:24)
== END 2018-04-08 22:31 | disposition home or self-care (01) ==
PROVIDERS: Emergency Provider Emergency Medicine; Family Provider Family Medicine; PCP Student in an Organized Health Care Education/Training Program
DX: R07.89 Other chest pain (principal)
CPT/HCPCS: 36415; 36591; 71045; 80053; 81003; 82550; 83690; 83880; 84484; 85025; 93005; 94640; 96374; 99283; 99285; J2270

== ENCOUNTER → 2018-05-26 15:13 | Outpatient (CLI) | payer OTHER, MEDICAID, SELFPAY ==
[2018-05-26 17:14] LABS: Hemoglobin A1C% w Est Avg Glu 9.4 % (4.0-6.0)
[2018-05-26 17:35] LABS: Alanine Aminotransferase 34 IU/L (9-52); Albumin 4.3 g/dL (3.5-5.0); Albumin Globulin Ratio 1.5 (1.0-2.8); Alkaline Phosphatase 62 U/L (38-126); Aspartate Aminotransferase 19 IU/L (14-36); Bilirubin Total 0.4 mg/dL (0.2-1.3); Blood Urea Nitrogen 12 mg/dL (7-17); Calcium 9.5 mg/dL (8.4-10.2); Carbon Dioxide 27 mmol/L (22-32); Chloride 102 mmol/L (98-107); Cholesterol 182 mg/dL (140-199); Estimated Glomerular Filt Rate > 60.0 mL/min (>60); Globulin 2.9 g/dL (1.7-4.1); Glucose 112 mg/dL (70-100); HDL Cholesterol 20 mg/dL (40-60); Potassium 4.1 mmol/L (3.4-5.1); Sodium 139 mmol/L (137-145); Total Protein 7.2 g/dL (6.3-8.2)
[2018-05-26 17:42] LABS: HEMOLYSIS 30 (0-50); Triglycerides 681 mg/dL (35-150)
[2018-05-26 17:47] LABS: LDL Cholesterol Direct 73 mg/dL (<100)
[2018-05-26 18:07] LABS: TSH w/ Reflex to FT4 1.27 uIU/mL (0.47-4.68)
[2018-05-26 20:17] LABS: Creatinine Urine Random 186.4 mg/dL
[2018-05-26 20:19] LABS: Microalbumi Creatinin Ratio Ur 27.8 ug/mg CR (<30); Microalbumin Urine Random 5.2 mg/dL (0-1.6)
== END ==
PROVIDERS: PCP Internal Medicine; Visit Provider Internal Medicine
DX: E28.2 Polycystic ovarian syndrome (principal); E11.69 Type 2 diabetes mellitus with other specified complication; E78.1 Pure hyperglyceridemia; F41.8 Other specified anxiety disorders
CPT/HCPCS: 36415; 80053; 80061; 82043; 82570; 83036; 83721; 84443

== ENCOUNTER 2018-07-06 18:26 | Emergency (ER) | payer OTHER, MEDICAID, SELFPAY ==
[2018-07-06 18:38] VITALS: BP 129/62; PULSE 75; RESP 16; TEMP 37.2; O2SAT 97
--- NOTE | 2018-07-06 18:38 | ED.EXTPRO ---
HPI - Extremity Problem <Fina Griffith PA-C - Last Filed: 07/06/18 22:24> General Chief complaint: Extremity Injury, Upper Stated complaint: LEFT HAND INDEX FINGER PAIN Time Seen by Provider: 07/06/18 18:35 Source: patient Mode of arrival: ambulatory Limitations: no limitations History of Present Illness HPI Narrative: This 43-year-old female states she woke up with a swollen left index finger this morning. She is left-handed. She states that she does not know of any trauma or bites, wondered if she could have bumped it on the nightstand overnight and not notice. She states that it was normal yesterday, today it is painful to move, indicates worse in the proximal finger. She has not had any fever, redness or rash. She has never had pain like this before. She has no history of gout. She states she actually was feeling fine and came in because ?my sister made me because I almost dropped the baby? due to the pain in her finger. She notes that her blood sugar will be high because she just ate pizza, but was 112 this morning and in the 130s later today. She reports compliance with her medications, takes her Lantus at HS. Related Data Home Medications Medication Instructions Recorded Confirmed Ketchum 5/16 Inch units SQ HS #50 08/07/16 06/16/18 Resmed Aircurve 10 BIPAP #1 ea 06/16/18 06/16/18 Previous Rx's Medication Instructions Recorded cholecalciferol (vitamin D3) 1 tab PO QDAY #90 tab 02/29/16 [Vitamin D3] albuterol sulfate 3 ml INH Q6H #1 box 11/14/16 CPAP: CPAP/PAP Full Face Mask u #1 01/31/17 Glucose: Test Strips 0 str TD QID #200 str 05/02/17 aspirin 81 mg tablet,delayed 81 mg PO BID #30 tab 08/05/17 release fenofibrate 160 mg tablet 160 mg PO QDAY #90 tab 08/05/17 glyburide 5 mg tablet 5 mg PO BID #180 tab 08/05/17 omeprazole 40 mg capsule,delayed 40 mg PO QAM #30 cap 08/05/17 release albuterol sulfate HFA 90 2 puff INHALATION Q4-6H PRN #18 04/28/18 mcg/actuation aerosol inhaler gram clonazepam 1 mg tablet 1 mg PO BID #180 tab 04/28/18 insulin glargine (U-100) 100 40 unit SUBCUT HS #30 each 04/28/18 unit/mL (3 mL) subcutaneous pen lisinopril 5 mg tablet 5 mg PO QDAY #90 tab 04/28/18 Lancets TRUPLUS #1 ea 05/27/18 Allergies Allergy/AdvReac Type Severity Reaction Status Date / Time cephalexin [CEPHALEXIN] Allergy Mild rash Verified 06/16/18 08:33 ibuprofen [From Motrin] Allergy Mild Verified 06/16/18 08:33 latex [LATEX] Allergy Mild unknown Verified 06/16/18 08:33 Review of Systems <Fina Griffith PA-C - Last Filed: 07/06/18 22:24> Review of Systems ROS Unobtainable: All systems reviewed & are unremarkable except as noted in HPI and below PFSH <Fina Griffith PA-C - Last Filed: 07/06/18 22:24> Medical History Migraine headache without aura (Chronic) Asthma (Chronic) Type 2 diabetes mellitus with other specified complication (Chronic 03/16/15) Mixed anxiety depressive disorder (Chronic 03/31/15) Polycystic ovaries (Chronic) Obstructive sleep apnea syndrome (Chronic 03/31/15) Morbid obesity (Chronic 08/15/15) Surgical History S/P hysterectomy (Inactive) S/P laparoscopic cholecystectomy (Inactive) S/P tonsillectomy and adenoidectomy (Inactive) S/P tubal ligation (Inactive) Family History Father Diabetes mellitus Mother Seizure Grandmother Coronary artery disease Social History (Updated 06/16/18 @ 10:09 by AMADOR Ko) marital status: details: harley España, lives in [place] household members: spouse lives independently: Yes caregiver/support person: No housing: house occupational status: employed Smoking Status: Current every day smoker quit status: not considering quitting alcohol intake: current substance use type: does not use Social History marital status: details: harley España, lives in [place] household members: spouse lives independently: Yes caregiver/support person: No housing: house occupational status: employed Smoking Status: Current every day smoker quit status: not considering quitting alcohol intake: current substance use type: does not use Exam <Fina Griffith PA-C - Last Filed: 07/06/18 22:24> Narrative Exam Narrative: GENERAL APPEARANCE: Patient sitting comfortably, in no distress. LUNGS: Clear to auscultation bilaterally. HEART: Rate and rhythm regular without murmur, normal S1 and S2, no S3 or S4. DERMATOLOGIC: Left hand no obvious trauma or wounds/bites, no exanthem MUSCULOSKELETAL: Moderate effusion over the left pointer finger, perhaps slight effusion of the other fingers. Tender over the pointer finger most between the MCP and PIP joint, also some. Finger is held in slight flexion, tender with passive extension. Strength is intact in all darden against resistance. NEUROVASCULAR: Left hand fingers are warm and pink with brisk cap refill, sensation is grossly intact Initial Vital Signs Initial Vital Signs: Vital Signs Temperature 99 F 07/06/18 18:38 Pulse Rate 75 07/06/18 18:38 Respiratory Rate 16 07/06/18 18:38 Blood Pressure 129/62 07/06/18 18:38 Pulse Oximetry 97 07/06/18 18:38 <Jefferson Dodd MD - Last Filed: 07/07/18 05:03> Initial Vital Signs Initial Vital Signs: Vital Signs Temperature 99 F 07/06/18 18:38 Pulse Rate 75 07/06/18 18:38 Respiratory Rate 16 07/06/18 18:38 Blood Pressure 129/62 07/06/18 18:38 Pulse Oximetry 97 07/06/18 18:38 Course <Fina Griffith PA-C - Last Filed: 07/06/18 22:24> Additional Information: Patient has not had any worsening symptoms or new symptoms such as fever. After hydration her lactate is normal. I spoke with Dr. Alexandra, orthopod on-call regarding follow-up, as attending Dr. Dodd and myself do not think IV antibiotics or consultation needed this evening, but this does need close monitoring. Dr. Alexandra suggested she return here tomorrow for recheck, initiation of IV antibiotics and orthopedics consultation then if needed (he felt tomorrow a.m. too early for recheck and patient refuses to miss work). Metal splint placed for protection and patient agrees to return here early afternoon tomorrow for recheck. She promised to return upon awakening if acutely worsening at all. Orders Ordered: ED Orders 07/06/18 20:06 XR chest 2V Stat Discontinued Medications Sodium Chloride (Normal Saline 0.9%) 1,000 mls @ 1,000 mls/hr IV BOLUS ONE Stop: 07/06/18 21:05 Last Infusion: 07/06/18 21:16 Dose: 0 mls/hr Admin: 07/06/18 20:14 Dose: 1,000 mls/hr Vital Signs - 8 hr 07/06/18 22:15 Pulse Rate 67 Respiratory Rate 18 Blood Pressure [Left Arm] 128/60 Pulse Oximetry 98 <Jefferson Dodd MD - Last Filed: 07/07/18 05:03> Orders Ordered: ED Orders 07/06/18 20:06 XR chest 2V Stat Discontinued Medications Sodium Chloride (Normal Saline 0.9%) 1,000 mls @ 1,000 mls/hr IV BOLUS ONE Stop: 07/06/18 21:05 Last Infusion: 07/06/18 21:16 Dose: 0 mls/hr Admin: 07/06/18 20:14 Dose: 1,000 mls/hr Vital Signs - 8 hr 07/06/18 22:15 Pulse Rate 67 Respiratory Rate 18 Blood Pressure [Left Arm] 128/60 Pulse Oximetry 98 MDM - Extremity (Nontraumatic) <Fina Griffith PA-C - Last Filed: 07/06/18 22:24> Lab Data Result diagrams: 07/06/18 19:05 07/06/18 19:05 Lab Results 07/06/18 07/06/18 07/06/18 Range/Units 19:05 19:05 19:05 WBC 11.6 H (4.5-11.0) X10^3/uL RBC 4.58 (4.0-5.2) X10^6/uL Hgb 14.5 (12.0-16.0) g/dL Hct 41.1 (36-46) % MCV 89.6 (80-100) fL MCH 31.7 (26-34) PG MCHC 35.4 (30-36) % RDW 13.8 (11.6-14.8) % Plt Count 288 (150-400) X10^3/uL Neut % (Auto) 65.2 (50-75) % Lymph % (Auto) 27.5 (25-40) % Steele % (Auto) 4.4 (3-14) % Eos % (Auto) 1.5 L (2-4) % Baso % (Auto) 1.4 (0-2) % Neut # (Auto) 7500 H (6576-3420) /uL Lymph # (Auto) 3200 (3432-7452) /uL Steele # (Auto) 500 (0-900) /uL Eos # (Auto) 200 (0-450) /uL Baso # (Auto) 200 H (0-100) /uL ESR 30 H (0-20) MM/HR Sodium 136 L (137-145) mmol/L Potassium 4.0 (3.4-5.1) mmol/L Chloride 101 (98-107) mmol/L Carbon Dioxide 24 (22-32) mmol/L BUN 9 (7-17) mg/dL Creatinine 0.60 (0.52-1.04) mg/dL Estimated GFR > 60.0 (>60) mL/min BUN/Creatinine Ratio 15.0 (6-22) Glucose 299 H (70-100) mg/dL Lactate 2.7 H (0.7-2.1) mmol/L Uric Acid 3.1 (2.5-6.2) mg/dL Calcium 9.3 (8.4-10.2) mg/dL C-Reactive Protein 2.1 H (<1.0) mg/dL 07/06/18 Range/Units 21:45 WBC (4.5-11.0) X10^3/uL RBC (4.0-5.2) X10^6/uL Hgb (12.0-16.0) g/dL Hct (36-46) % MCV (80-100) fL MCH (26-34) PG MCHC (30-36) % RDW (11.6-14.8) % Plt Count (150-400) X10^3/uL Neut % (Auto) (50-75) % Lymph % (Auto) (25-40) % Steele % (Auto) (3-14) % Eos % (Auto) (2-4) % Baso % (Auto) (0-2) % Neut # (Auto) (2192-3001) /uL Lymph # (Auto) (7250-3824) /uL Steele # (Auto) (0-900) /uL Eos # (Auto) (0-450) /uL Baso # (Auto) (0-100) /uL ESR (0-20) MM/HR Sodium (137-145) mmol/L Potassium (3.4-5.1) mmol/L Chloride (98-107) mmol/L Carbon Dioxide (22-32) mmol/L BUN (7-17) mg/dL Creatinine (0.52-1.04) mg/dL Estimated GFR (>60) mL/min BUN/Creatinine Ratio (6-22) Glucose (70-100) mg/dL Lactate 1.5 (0.7-2.1) mmol/L Uric Acid (2.5-6.2) mg/dL Calcium (8.4-10.2) mg/dL C-Reactive Protein (<1.0) mg/dL Point of Care Testing Test Results Negative Glucose POC 296 Urine Dip Bedside Urine Glucose 1000 mg/dl Bedside Urine Bilirubin - Negative Bedside Urine Ketone +/- 5 Urine Specific Naper 1.020 Bedside Urine Occult Blood - Negative Bedside Urine pH 7.0 Bedside Urine Protein - Negative Bedside Urine Urobilinogen - Negative Bedside Urine Nitrite - Negative Bedside Urine Leukocytes - Negative Esterase Imaging Data finger: Radiologist's impression: [address] [address] XRay Report Signed Patient: Rosita Monroe [facility]#: [id number] : 1975Acct:[id number] Age/Sex: 43 / FDate of Service: 07/06/18 Loc: ED Accession Number: [id number] Procedure: XR finger LT min 2V Ordering Provider: Fina Griffith P.A-C PROCEDURE: XR FINGER LT MIN 2V INDICATIONS: pain, swelling, no trauma TECHNIQUE: AP hand, 2 views of the second finger(s) acquired. COMPARISON: None. FINDINGS: Bones: No fractures or dislocations. No suspicious bony lesions. Soft tissues: No suspicious soft tissue calcifications. IMPRESSION: No visualized acute fracture or dislocation. However, if clinical concern and/or pain persist, short interval imaging followup in 7-10 days is recommended, as occult injury cannot be definitively excluded. Dictated by: Rachel Aguilar M.D. on 07/06/2018 at 19:43 Approved by: Rachel Aguilar M.D. on 07/06/2018 at 19:44 Chest x-ray: Radiologist's impression: 18 Fina Griffith PA-C Find Patient Imaging Rosita Monroe 43 F 1975 ACTIVITY DATE EXAM STATUS AUTHOR 07/06/18 20:06 Signed Rachel Aguilar 07/06/18 18:52 [place] [address] XRay Report Signed Patient: Rosita Monroe [facility]#: [id number] : 1975Acct:[id number] Age/Sex: 43 / FDate of Service: 07/06/18 Loc: ED Accession Number: [id number] Procedure: XR chest 2V Ordering Provider: Fina Griffith P.A-C PROCEDURE: XR CHEST 2V INDICATIONS: cough, asthma TECHNIQUE: 2 views of the chest were acquired. COMPARISON: [facility], , XR CHEST 1V, 04/08/2018, 18:21. FINDINGS: Surgical changes and devices: None. Lungs and pleura: Lungs are clear. No pleural effusions or pneumothorax. Mediastinum: Mediastinal contours are normal. Heart size is normal. Bones and chest wall: No suspicious bony abnormalities. Soft tissues appear unremarkable. IMPRESSION: No acute pulmonary process. Dictated by: Rachel Aguilar M.D. on 07/06/2018 at 21:00 Approved by: Rachel Aguilar M.D. on 07/06/2018 at 21:00 <Jefferson Dodd MD - Last Filed: 07/07/18 05:03> Lab Data Lab Results 07/06/18 07/06/18 07/06/18 Range/Units 19:05 19:05 19:05 WBC 11.6 H (4.5-11.0) X10^3/uL RBC 4.58 (4.0-5.2) X10^6/uL Hgb 14.5 (12.0-16.0) g/dL Hct 41.1 (36-46) % MCV 89.6 (80-100) fL MCH 31.7 (26-34) PG MCHC 35.4 (30-36) % RDW 13.8 (11.6-14.8) % Plt Count 288 (150-400) X10^3/uL Neut % (Auto) 65.2 (50-75) % Lymph % (Auto) 27.5 (25-40) % Steele % (Auto) 4.4 (3-14) % Eos % (Auto) 1.5 L (2-4) % Baso % (Auto) 1.4 (0-2) % Neut # (Auto) 7500 H (1823-8581) /uL Lymph # (Auto) 3200 (9668-8113) /uL Steele # (Auto) 500 (0-900) /uL Eos # (Auto) 200 (0-450) /uL Baso # (Auto) 200 H (0-100) /uL ESR 30 H (0-20) MM/HR Sodium 136 L (137-145) mmol/L Potassium 4.0 (3.4-5.1) mmol/L Chloride 101 (98-107) mmol/L Carbon Dioxide 24 (22-32) mmol/L BUN 9 (7-17) mg/dL Creatinine 0.60 (0.52-1.04) mg/dL Estimated GFR > 60.0 (>60) mL/min BUN/Creatinine Ratio 15.0 (6-22) Glucose 299 H (70-100) mg/dL Lactate 2.7 H (0.7-2.1) mmol/L Uric Acid 3.1 (2.5-6.2) mg/dL Calcium 9.3 (8.4-10.2) mg/dL C-Reactive Protein 2.1 H (<1.0) mg/dL 07/06/18 Range/Units 21:45 WBC (4.5-11.0) X10^3/uL RBC (4.0-5.2) X10^6/uL Hgb (12.0-16.0) g/dL Hct (36-46) % MCV (80-100) fL MCH (26-34) PG MCHC (30-36) % RDW (11.6-14.8) % Plt Count (150-400) X10^3/uL Neut % (Auto) (50-75) % Lymph % (Auto) (25-40) % Steele % (Auto) (3-14) % Eos % (Auto) (2-4) % Baso % (Auto) (0-2) % Neut # (Auto) (4459-0126) /uL Lymph # (Auto) (4521-2609) /uL Steele # (Auto) (0-900) /uL Eos # (Auto) (0-450) /uL Baso # (Auto) (0-100) /uL ESR (0-20) MM/HR Sodium (137-145) mmol/L Potassium (3.4-5.1) mmol/L Chloride (98-107) mmol/L Carbon Dioxide (22-32) mmol/L BUN (7-17) mg/dL Creatinine (0.52-1.04) mg/dL Estimated GFR (>60) mL/min BUN/Creatinine Ratio (6-22) Glucose (70-100) mg/dL Lactate 1.5 (0.7-2.1) mmol/L Uric Acid (2.5-6.2) mg/dL Calcium (8.4-10.2) mg/dL C-Reactive Protein (<1.0) mg/dL Point of Care Testing Test Results Negative Glucose POC 296 Urine Dip Bedside Urine Glucose 1000 mg/dl Bedside Urine Bilirubin - Negative Bedside Urine Ketone +/- 5 Urine Specific Naper 1.020 Bedside Urine Occult Blood - Negative Bedside Urine pH 7.0 Bedside Urine Protein - Negative Bedside Urine Urobilinogen - Negative Bedside Urine Nitrite - Negative Bedside Urine Leukocytes - Negative Esterase Discharge Plan Departure Patient Disposition: Home Clinical Impression: Swelling of finger joint of left hand, Finger pain, left Discharge Date/Time: 07/06/18 22:34 Interventions: ED Discharge Assessment Last Done: 07/06/18 22:32 Instructions: DI for Finger Flexor Tendon Injury Activity Restrictions/Additional Instructions: Please keep your finger in the splint for comfort and protection. As we discussed, you should return to the ED immediately if this is acutely worsening or you have new symptoms such as fever or spreading redness. Otherwise, please return here in the early afternoon tomorrow as we planned for recheck so that we can initiate further treatment as needed Prescriptions: No Action cholecalciferol (vitamin D3) [Vitamin D3] 2,000 UNIT tablet 1 tab PO QDAY Qty: 90 RF: 3 Ketchum 5/16 Inch SQ HS Qty: 50 RF: 11 albuterol sulfate 2.5 MG/3 ML solution for nebulization 3 ml INH Q6H Qty: 1 RF: 1 CPAP: CPAP/PAP Full Face Mask Qty: 1 RF: 0 Glucose: Test Strips TD QID Qty: 200 RF: 11 Lancets TRUPLUS .Route .MEDSUPPLY Qty: 1 RF: 11 fenofibrate 160 mg tablet 160 mg PO QDAY Qty: 90 RF: 3 glyburide 5 mg tablet 5 mg PO BID Qty: 180 RF: 3 omeprazole 40 mg capsule,delayed release(DR/EC) 40 mg PO QAM Qty: 30 RF: 11 aspirin 81 mg tablet,delayed release (DR/EC) 81 mg PO BID Qty: 30 RF: 12 lisinopril [Zestril] 5 mg tablet 5 mg PO QDAY Qty: 90 RF: 6 clonazepam [Klonopin] 1 mg tablet 1 mg PO BID Qty: 180 RF: 3 Basaglar KwikPen U-100 Insulin 100 unit/mL (3 mL) insulin pen 40 unit SUBCUT HS Qty: 30 RF: 10 Ventolin HFA 90 mcg/actuation HFA aerosol inhaler 2 puff INHALATION Q4-6H PRN (Reason: shortness of breath) Qty: 18 RF: 11 Resmed Aircurve 10 BIPAP Qty: 1 RF: 0 Referrals: Vic Brothers MD [Primary Care Provider] - <Jefferson Dodd MD - Last Filed: 07/07/18 05:03> Cosign ED Attending Coskalpanaature Attestation: I was present in the ER at the time this patient's care. I was available for consultation or to see the patient directly if requested. I agree with the patient's evaluation, assessment and treatment plan.
--- NOTE | 2018-07-06 18:42 | ED_ITS ---
HPI - Extremity Problem <Fina Griffith PA-C - Last Filed: 07/06/18 22:24> General Chief complaint: Extremity Injury, Upper Stated complaint: LEFT HAND INDEX FINGER PAIN Time Seen by Provider: 07/06/18 18:35 Source: patient Mode of arrival: ambulatory Limitations: no limitations History of Present Illness HPI Narrative: This 43-year-old female states she woke up with a swollen left index finger this morning. She is left-handed. She states that she does not know of any trauma or bites, wondered if she could have bumped it on the nightstand overnight and not notice. She states that it was normal yesterday, today it is painful to move, indicates worse in the proximal finger. She has not had any fever, redness or rash. She has never had pain like this before. She has no history of gout. She states she actually was feeling fine and came in because ?my sister made me because I almost dropped the baby? due to the pain in her finger. She notes that her blood sugar will be high because she just ate pizza, but was 112 this morning and in the 130s later today. She reports com pliance with her medications, takes her Lantus at HS. Related Data Home Medications Medication Instructions Recorded Confirmed [place] 5/16 Inch units SQ HS #50 08/07/16 06/16/18 Resmed Aircurve 10 BIPAP #1 ea 06/16/18 06/16/18 Previous Rx's Medication Instructions Recorded cholecalciferol (vitamin D3) 1 tab PO QDAY #90 tab 02/29/16 [Vitamin D3] albuterol sulfate 3 ml INH Q6H #1 box 11/14/16 CPAP: CPAP/PAP Full Face Mask u #1 01/31/17 Glucose: Test Strips 0 str TD QID #200 str 05/02/17 aspirin 81 mg tablet,delayed 81 mg PO BID #30 tab 08/05/17 release fenofibrate 160 mg tablet 160 mg PO QDAY #90 tab 08/05/17 glyburide 5 mg tablet 5 mg PO BID #180 tab 08/05/17 omeprazole 40 mg capsule,delayed 40 mg PO QAM #30 cap 08/05/17 release albuterol sulfate HFA 90 2 puff INHALATION Q4-6H PRN #18 04/28/18 mcg/actuation aerosol inhaler gram clonazepam 1 mg tablet 1 mg PO BID #180 tab 04/28/18 insulin glargine (U-100) 100 40 unit SUBCUT HS #30 each 04/28/18 unit/mL (3 mL) subcutaneous pen lisinopril 5 mg tablet 5 mg PO QDAY #90 tab 04/28/18 Lancets TRUPLUS #1 ea 05/27/18 Allergies Allergy/AdvReac Type Severity Reaction Status Date / Time cephalexin [CEPHALEXIN] Allergy Mild rash Verified 06/16/18 08:33 ibuprofen [From Motrin] Allergy Mild Verified 06/16/18 08:33 latex [LATEX] Allergy Mild unknown Verified 06/16/18 08:33 Review of Systems <Fina Griffith PA-C - Last Filed: 07/06/18 22:24> Review of Systems ROS Unobtainable: All systems reviewed & are unremarkable except as noted in HPI and below PFSH <Fina Griffith PA-C - Last Filed: 07/06/18 22:24> Medical History Migraine headache without aura (Chronic) Asthma (Chronic) Type 2 diabetes mellitus with other specified complication (Chronic 03/16/15) Mixed anxiety depressive disorder (Chronic 03/31/15) Polycystic ovaries (Chronic) Obstructive sleep apnea syndrome (Chronic 03/31/15) Morbid obesity (Chronic 08/15/15) Surgical History S/P hysterectomy (Inactive) S/P laparoscopic cholecystectomy (Inactive) S/P tonsillectomy and adenoidectomy (Inactive) S/P tubal ligation (Inactive) Family History Father Diabetes mellitus Mother Seizure Grandmother Coronary artery disease Social History (Updated 06/16/18 @ 10:09 by AMADOR Ko) marital status: details: harley España, lives in [place] household members: spouse lives independently: Yes caregiver/support person: No housing: house occupational status: employed Smoking Status: Current every day smoker quit status: not considering quitting alcohol intake: current substance use type: does not use Social History marital status: details: harley España, lives in [place] household members: spouse lives independently: Yes caregiver/support person: No housing: house occupational status: employed Smoking Status: Current every day smoker quit status: not considering quitting alcohol intake: current substance use type: does not use Exam <Fina Griffith PA-C - Last Filed: 07/06/18 22:24> Narrative Exam Narrative: GENERAL APPEARANCE: Patient sitting comfortably, in no distress. LUNGS: Clear to auscultation bilaterally. HEART: Rate and rhythm regular without murmur, normal S1 and S2, no S3 or S4. DERMATOLOGIC: Left hand no obvious trauma or wounds/bites, no exanthem MUSCULOSKELETAL: Moderate effusion over the left pointer finger, perhaps slight effusion of the other fingers. Tender over the pointer finger most between the MCP and PIP joint, also some. Finger is held in slight flexion, tender with passive extension. Strength is intact in all darden against resistance. NEUROVASCULAR: Left hand fingers are warm and pink with brisk cap refill, sensation is grossly intact Initial Vital Signs Initial Vital Signs: Vital Signs Temperature 99 F 07/06/18 18:38 Pulse Rate 75 07/06/18 18:38 Respiratory Rate 16 07/06/18 18:38 Blood Pressure 129/62 07/06/18 18:38 Pulse Oximetry 97 07/06/18 18:38 <Jefferson Dodd MD - Last Filed: 07/07/18 05:03> Initial Vital Signs Initial Vital Signs: Vital Signs Temperature 99 F 07/06/18 18:38 Pulse Rate 75 07/06/18 18:38 Respiratory Rate 16 07/06/18 18:38 Blood Pressure 129/62 07/06/18 18:38 Pulse Oximetry 97 07/06/18 18:38 Course <Fina Griffith PA-C - Last Filed: 07/06/18 22:24> Additional Information: Patient has not had any worsening symptoms or new symptoms such as fever. After hydration her lactate is normal. I spoke with Dr. Alexandra, orthopleila on-call regarding follow-up, as attending Dr. Dodd and myself do not think IV antibiotics or consultation needed this evening, but this does need close monitoring. Dr. Alexandra suggested she return here tomorrow for recheck, initiation of IV antibiotics and orthopedics consultation then if needed (he felt tomorrow a.m. too early for recheck and patient refuses to miss work). Metal splint placed for protection and patient agrees to return here early afternoon tomorrow for recheck. She promised to return upon awakening if acutely worsening at all. Orders Ordered: ED Orders 07/06/18 20:06 XR chest 2V Stat Discontinued Medications Sodium Chloride (Normal Saline 0.9%) 1,000 mls @ 1,000 mls/hr IV BOLUS ONE Stop: 07/06/18 21:05 Last Infusion: 07/06/18 21:16 Dose: 0 mls/hr Admin: 07/06/18 20:14 Dose: 1,000 mls/hr Vital Signs - 8 hr 07/06/18 22:15 Pulse Rate 67 Respiratory Rate 18 Blood Pressure [Left Arm] 128/60 Pulse Oximetry 98 <Jefferson Dodd MD - Last Filed: 07/07/18 05:03> Orders Ordered: ED Orders 07/06/18 20:06 XR chest 2V Stat Discontinued Medications Sodium Chloride (Normal Saline 0.9%) 1,000 mls @ 1,000 mls/hr IV BOLUS ONE Stop: 07/06/18 21:05 Last Infusion: 07/06/18 21:16 Dose: 0 mls/hr Admin: 07/06/18 20:14 Dose: 1,000 mls/hr Vital Signs - 8 hr 07/06/18 22:15 Pulse Rate 67 Respiratory Rate 18 Blood Pressure [Left Arm] 128/60 Pulse Oximetry 98 MDM - Extremity (Nontraumatic) <Fina Griffith PA-C - Last Filed: 07/06/18 22:24> Lab Data Result diagrams: 07/06/18 19:05 07/06/18 19:05 Lab Results 07/06/18 07/06/18 07/06/18 Range/Units 19:05 19:05 19:05 WBC 11.6 H (4.5-11.0) X10^3/uL RBC 4.58 (4.0-5.2) X10^6/uL Hgb 14.5 (12.0-16.0) g/dL Hct 41.1 (36-46) % MCV 89.6 (80-100) fL MCH 31.7 (26-34) PG MCHC 35.4 (30-36) % RDW 13.8 (11.6-14.8) % Plt Count 288 (150-400) X10^3/uL Neut % (Auto) 65.2 (50-75) % Lymph % (Auto) 27.5 (25-40) % [place] % (Auto) 4.4 (3-14) % Eos % (Auto) 1.5 L (2-4) % Baso % (Auto) 1.4 (0-2) % Neut # (Auto) 7500 H (9894-4949) /uL Lymph # (Auto) 3200 (5658-0295) /uL [place] # (Auto) 500 (0-900) /uL Eos # (Auto) 200 (0-450) /uL Baso # (Auto) 200 H (0-100) /uL ESR 30 H (0-20) MM/HR Sodium 136 L (137-145) mmol/L Potassium 4.0 (3.4-5.1) mmol/L Chloride 101 (98-107) mmol/L Carbon Dioxide 24 (22-32) mmol/L BUN 9 (7-17) mg/dL Creatinine 0.60 (0.52-1.04) mg/dL Estimated GFR > 60.0 (>60) mL/min BUN/Creatinine Ratio 15.0 (6-22) Glucose 299 H (70-100) mg/dL Lactate 2.7 H (0.7-2.1) mmol/L Uric Acid 3.1 (2.5-6.2) mg/dL Calcium 9.3 (8.4-10.2) mg/dL C-Reactive Protein 2.1 H (<1.0) mg/dL 07/06/18 Range/Units 21:45 WBC (4.5-11.0) X10^3/uL RBC (4.0-5.2) X10^6/uL Hgb (12.0-16.0) g/dL Hct (36-46) % MCV (80-100) fL MCH (26-34) PG MCHC (30-36) % RDW (11.6-14.8) % Plt Count (150-400) X10^3/uL Neut % (Auto) (50-75) % Lymph % (Auto) (25-40) % [place] % (Auto) (3-14) % Eos % (Auto) (2-4) % Baso % (Auto) (0-2) % Neut # (Auto) (1136-1320) /uL Lymph # (Auto) (0872-3066) /uL [place] # (Auto) (0-900) /uL Eos # (Auto) (0-450) /uL Baso # (Auto) (0-100) /uL ESR (0-20) MM/HR Sodium (137-145) mmol/L Potassium (3.4-5.1) mmol/L Chloride (98-107) mmol/L Carbon Dioxide (22-32) mmol/L BUN (7-17) mg/dL Creatinine (0.52-1.04) mg/dL Estimated GFR (>60) mL/min BUN/Creatinine Ratio (6-22) Glucose (70-100) mg/dL Lactate 1.5 (0.7-2.1) mmol/L Uric Acid (2.5-6.2) mg/dL Calcium (8.4-10.2) mg/dL C-Reactive Protein (<1.0) mg/dL Point of Care Testing Test Results Negative Glucose POC 296 Urine Dip Bedside Urine Glucose 1000 mg/dl Bedside Urine Bilirubin - Negative Bedside Urine Ketone +/- 5 Urine Specific [place] 1.020 Bedside Urine Occult Blood - Negative Bedside Urine pH 7.0 Bedside Urine Protein - Negative Bedside Urine Urobilinogen - Negative Bedside Urine Nitrite - Negative Bedside Urine Leukocytes - Negative Esterase Imaging Data finger: Radiologist's impression: [address] [address] XRay Report Signed Patient: Rosita Monroe [facility]#: [id number] : 1975Acct:[id number] Age/Sex: 43 / FDate of Service: 07/06/18 Loc: ED Accession Number: [id number] Procedure: XR finger LT min 2V Ordering Provider: Fina Griffith P.A-C PROCEDURE: XR FINGER LT MIN 2V INDICATIONS: pain, swelling, no trauma TECHNIQUE: AP hand, 2 views of the second finger(s) acquired. COMPARISON: None. FINDINGS: Bones: No fractures or dislocations. No suspicious bony lesions. Soft tissues: No suspicious soft tissue calcifications. IMPRESSION: No visualized acute fracture or dislocation. However, if clinical concern and/or pain persist, short interval imaging followup in 7-10 days is recommended, as occult injury cannot be definitively excluded. Dictated by: Rachel Aguilar M.D. on 07/06/2018 at 19:43 Approved by: Rachel Aguilar M.D. on 07/06/2018 at 19:44 Chest x-ray: Radiologist's impression: 18 Fina Griffith PA-C Find Patient Imaging Rosita Monroe 43 F 1975 ACTIVITY DATE EXAM STATUS AUTHOR 07/06/18 20:06 Signed Rachel Aguilar 07/06/18 18:52 [place] [address] XRay Report Signed Patient: Rosita Monroe [facility]#: [id number] : 1975Acct:[id number] Age/Sex: 43 / FDate of Service: 07/06/18 Loc: ED Accession Number: [id number] Procedure: XR chest 2V Ordering Provider: Fina Griffith P.A-C PROCEDURE: XR CHEST 2V INDICATIONS: cough, asthma TECHNIQUE: 2 views of the chest were acquired. COMPARISON: [facility], , XR CHEST 1V, 04/08/2018, 18:21. FINDINGS: Surgical changes and devices: None. Lungs and pleura: Lungs are clear. No pleural effusions or pneumothorax. Mediastinum: Mediastinal contours are normal. Heart size is normal. Bones and chest wall: No suspicious bony abnormalities. Soft tissues appear unremarkable. IMPRESSION: No acute pulmonary process. Dictated by: Rachel Aguilar M.D. on 07/06/2018 at 21:00 Approved by: Rachel Aguilar M.D. on 07/06/2018 at 21:00 <Jefferson Dodd MD - Last Filed: 07/07/18 05:03> Lab Data Lab Results 07/06/18 07/06/18 07/06/18 Range/Units 19:05 19:05 19:05 WBC 11.6 H (4.5-11.0) X10^3/uL RBC 4.58 (4.0-5.2) X10^6/uL Hgb 14.5 (12.0-16.0) g/dL Hct 41.1 (36-46) % MCV 89.6 (80-100) fL MCH 31.7 (26-34) PG MCHC 35.4 (30-36) % RDW 13.8 (11.6-14.8) % Plt Count 288 (150-400) X10^3/uL Neut % (Auto) 65.2 (50-75) % Lymph % (Auto) 27.5 (25-40) % [place] % (Auto) 4.4 (3-14) % Eos % (Auto) 1.5 L (2-4) % Baso % (Auto) 1.4 (0-2) % Neut # (Auto) 7500 H (1351-8123) /uL Lymph # (Auto) 3200 (4545-6528) /uL [place] # (Auto) 500 (0-900) /uL Eos # (Auto) 200 (0-450) /uL Baso # (Auto) 200 H (0-100) /uL ESR 30 H (0-20) MM/HR Sodium 136 L (137-145) mmol/L Potassium 4.0 (3.4-5.1) mmol/L Chloride 101 (98-107) mmol/L Carbon Dioxide 24 (22-32) mmol/L BUN 9 (7-17) mg/dL Creatinine 0.60 (0.52-1.04) mg/dL Estimated GFR > 60.0 (>60) mL/min BUN/Creatinine Ratio 15.0 (6-22) Glucose 299 H (70-100) mg/dL Lactate 2.7 H (0.7-2.1) mmol/L Uric Acid 3.1 (2.5-6.2) mg/dL Calcium 9.3 (8.4-10.2) mg/dL C-Reactive Protein 2.1 H (<1.0) mg/dL 07/06/18 Range/Units 21:45 WBC (4.5-11.0) X10^3/uL RBC (4.0-5.2) X10^6/uL Hgb (12.0-16.0) g/dL Hct (36-46) % MCV (80-100) fL MCH (26-34) PG MCHC (30-36) % RDW (11.6-14.8) % Plt Count (150-400) X10^3/uL Neut % (Auto) (50-75) % Lymph % (Auto) (25-40) % [place] % (Auto) (3-14) % Eos % (Auto) (2-4) % Baso % (Auto) (0-2) % Neut # (Auto) (3297-4508) /uL Lymph # (Auto) (7168-8373) /uL [place] # (Auto) (0-900) /uL Eos # (Auto) (0-450) /uL Baso # (Auto) (0-100) /uL ESR (0-20) MM/HR Sodium (137-145) mmol/L Potassium (3.4-5.1) mmol/L Chloride (98-107) mmol/L Carbon Dioxide (22-32) mmol/L BUN (7-17) mg/dL Creatinine (0.52-1.04) mg/dL Estimated GFR (>60) mL/min BUN/Creatinine Ratio (6-22) Glucose (70-100) mg/dL Lactate 1.5 (0.7-2.1) mmol/L Uric Acid (2.5-6.2) mg/dL Calcium (8.4-10.2) mg/dL C-Reactive Protein (<1.0) mg/dL Point of Care Testing Test Results Negative Glucose POC 296 Urine Dip Bedside Urine Glucose 1000 mg/dl Bedside Urine Bilirubin - Negative Bedside Urine Ketone +/- 5 Urine Specific [place] 1.020 Bedside Urine Occult Blood - Negative Bedside Urine pH 7.0 Bedside Urine Protein - Negative Bedside Urine Urobilinogen - Negative Bedside Urine Nitrite - Negative Bedside Urine Leukocytes - Negative Esterase Discharge Plan Departure Patient Disposition: Home Clinical Impression: Swelling of finger joint of left hand, Finger pain, left Discharge Date/Time: 07/06/18 22:34 Interventions: ED Discharge Assessment Last Done: 07/06/18 22:32 Instructions: DI for Finger Flexor Tendon Injury Activity Restrictions/Additional Instructions: Please keep your finger in the splint for comfort and protection. As we discussed, you should return to the ED immediately if this is acutely worsening or you have new symptoms such as fever or spreading redness. Otherwise, please return here in the early afternoon tomorrow as we planned for recheck so that we can initiate further treatment as needed Prescriptions: No Action cholecalciferol (vitamin D3) [Vitamin D3] 2,000 UNIT tablet 1 tab PO QDAY Qty: 90 RF: 3 [place] 5/16 Inch SQ HS Qty: 50 RF: 11 albuterol sulfate 2.5 MG/3 ML solution for nebulization 3 ml INH Q6H Qty: 1 RF: 1 CPAP: CPAP/PAP Full Face Mask Qty: 1 RF: 0 Glucose: Test Strips TD QID Qty: 200 RF: 11 Lancets TRUPLUS .Route .MEDSUPPLY Qty: 1 RF: 11 fenofibrate 160 mg tablet 160 mg PO QDAY Qty: 90 RF: 3 glyburide 5 mg tablet 5 mg PO BID Qty: 180 RF: 3 omeprazole 40 mg capsule,delayed release(DR/EC) 40 mg PO QAM Qty: 30 RF: 11 aspirin 81 mg tablet,delayed release (DR/EC) 81 mg PO BID Qty: 30 RF: 12 lisinopril [Zestril] 5 mg tablet 5 mg PO QDAY Qty: 90 RF: 6 clonazepam [Klonopin] 1 mg tablet 1 mg PO BID Qty: 180 RF: 3 Basaglar KwikPen U-100 Insulin 100 unit/mL (3 mL) insulin pen 40 unit SUBCUT HS Qty: 30 RF: 10 Ventolin HFA 90 mcg/actuation HFA aerosol inhaler 2 puff INHALATION Q4-6H PRN (Reason: shortness of breath) Qty: 18 RF: 11 Resmed Aircurve 10 BIPAP Qty: 1 RF: 0 Referrals: Vic Brothers MD [Primary Care Provider] - <Jefferson Dodd MD - Last Filed: 07/07/18 05:03> Cosign ED Attending Coskalpanaature Attestation: I was present in the ER at the time this patient's care. I was available for consultation or to see the patient directly if requested. I agree with the patient's evaluation, assessment and treatment plan.
--- NOTE | 2018-07-06 18:52 | DI.RAD.S_ITS ---
PROCEDURE: XR FINGER LT MIN 2V INDICATIONS: pain, swelling, no trauma TECHNIQUE: AP hand, 2 views of the second finger(s) acquired. COMPARISON: None. FINDINGS: Bones: No fractures or dislocations. No suspicious bony lesions. Soft tissues: No suspicious soft tissue calcifications. IMPRESSION: No visualized acute fracture or dislocation. However, if clinical concern and/or pain persist, short interval imaging followup in 7-10 days is recommended, as occult injury cannot be definitively excluded. Dictated by: Rachel Aguilar M.D. on 07/06/2018 at 19:43 Approved by: Rachel Aguilar M.D. on 07/06/2018 at 19:44
[2018-07-06 19:22] LABS: Add Manual Diff / Slide Review NO; Basophils Absolute Auto 200 /uL (0-100); Basophils Percent Auto 1.4 % (0-2); Eosinophils Absolute Auto 200 /uL (0-450); Eosinophils Percent Auto 1.5 % (2-4); Hematocrit 41.1 % (36-46); Hemoglobin 14.5 g/dL (12.0-16.0); Lymphocytes Absolute Auto 3200 /uL (1100-4500); Lymphocytes Percent Auto 27.5 % (25-40); Mean Corpuscular HGB Conc 35.4 % (30-36); Mean Corpuscular Hemoglobin 31.7 PG (26-34); Mean Corpuscular Volume 89.6 fL (80-100); Monocytes Absolute Auto 500 /uL (0-900); Monocytes Percent Auto 4.4 % (3-14); Neutrophils Absolute Auto 7500 /uL (1500-7000); Neutrophils Percent Auto 65.2 % (50-75); Platelet Count 288 X10^3/uL (150-400); Red Blood Cell Count 4.58 X10^6/uL (4.0-5.2); Red Cell Distribution Width 13.8 % (11.6-14.8); White Blood Cell Count 11.6 X10^3/uL (4.5-11.0)
[2018-07-06 19:38] LABS: Lactate (Lactic Acid) 2.7 mmol/L (0.7-2.1)
[2018-07-06 19:42] LABS: Blood Urea Nitrogen 9 mg/dL (7-17); C-Reactive Protein Quant 2.1 mg/dL (<1.0); Calcium 9.3 mg/dL (8.4-10.2); Carbon Dioxide 24 mmol/L (22-32); Chloride 101 mmol/L (98-107); Estimated Glomerular Filt Rate > 60.0 mL/min (>60); Glucose 299 mg/dL (70-100); HEMOLYSIS 23 (0-50); Sodium 136 mmol/L (137-145); Uric Acid 3.1 mg/dL (2.5-6.2)
[2018-07-06 19:57] LABS: Erythrocyte Sedimentation Rate 30 MM/HR (0-20)
--- NOTE | 2018-07-06 20:06 | DI.RAD.S_ITS ---
PROCEDURE: XR CHEST 2V INDICATIONS: cough, asthma TECHNIQUE: 2 views of the chest were acquired. COMPARISON: [facility], CR, XR CHEST 1V, 04/08/2018, 18:21. FINDINGS: Surgical changes and devices: None. Lungs and pleura: Lungs are clear. No pleural effusions or pneumothorax. Mediastinum: Mediastinal contours are normal. Heart size is normal. Bones and chest wall: No suspicious bony abnormalities. Soft tissues appear unremarkable. IMPRESSION: No acute pulmonary process. Dictated by: Rachel Aguilar M.D. on 07/06/2018 at 21:00 Approved by: Rachel Aguilar M.D. on 07/06/2018 at 21:00
[2018-07-06] MEDS: SODIUM CHLORIDE 0.9% 1,000 ML 1000 ML IV (20:14)
[2018-07-06 20:47] VITALS: BP 129/62; PULSE 63; RESP 19; O2SAT 99
[2018-07-06 21:19] LABS: Reflexed Lactate in 2 Hours Y
[2018-07-06 22:06] LABS: Lactate 2HR (Lactic Acid Rflx) 1.5 mmol/L (0.7-2.1)
[2018-07-06 22:15] VITALS: BP 128/60; PULSE 67; RESP 18; O2SAT 98
== END 2018-07-06 22:34 | disposition home or self-care (01) ==
PROVIDERS: Emergency Provider Internal Medicine; PCP Internal Medicine
DX: M25.442 Effusion, left hand (principal); M79.645 Pain in left finger(s); E11.69 Type 2 diabetes mellitus with other specified complication
CPT/HCPCS: 29130; 36415; 71046; 73140; 80048; 81003; 81025; 82962; 83605; 84550; 85025; 85651; 86140; 96360; 99283; 99284

== ENCOUNTER 2018-07-07 13:10 | Emergency (ER) | payer OTHER, MEDICAID, SELFPAY ==
[2018-07-07 13:30] VITALS: BP 113/75; PULSE 69; RESP 16; TEMP 36.8; O2SAT 96
--- NOTE | 2018-07-07 15:46 | ED_ITS ---
HPI - Extremity Problem <Fina Griffith PA-C - Last Filed: 07/07/18 21:46> General Chief complaint: Extremity Problem,Nontraumatic Stated complaint: LEFT HAND SWELLING Time Seen by Provider: 07/07/18 13:30 Source: patient Mode of arrival: ambulatory Limitations: no limitations History of Present Illness HPI Narrative: This 43-year-old female return for recheck on left pointer finger tendinitis. She was seen here last night it and we had some concern for flexor tenosynovitis. On repeat testing her lactate improved, and after speaking with Ortho, they advised return here today for recheck. She left this splinted and states that pain seems improved today. She thinks mobility is better. She denies any new symptoms such as redness or fever. Related Data Home Medications Medication Instructions Recorded Confirmed [place] 5/16 Inch units SQ HS #50 08/07/16 06/16/18 Resmed Aircurve 10 BIPAP #1 ea 06/16/18 06/16/18 Previous Rx's Medication Instructions Recorded cholecalciferol (vitamin D3) 1 tab PO QDAY #90 tab 02/29/16 [Vitamin D3] albuterol sulfate 3 ml INH Q6H #1 box 11/14/16 CPAP: CPAP/PAP Full Face Mask u #1 01/31/17 aspirin 81 mg tablet,delayed 81 mg PO BID #30 tab 08/05/17 release fenofibrate 160 mg tablet 160 mg PO QDAY #90 tab 08/05/17 glyburide 5 mg tablet 5 mg PO BID #180 tab 08/05/17 omeprazole 40 mg capsule,delayed 40 mg PO QAM #30 cap 08/05/17 release albuterol sulfate HFA 90 2 puff INHALATION Q4-6H PRN #18 04/28/18 mcg/actuation aerosol inhaler gram clonazepam 1 mg tablet 1 mg PO BID #180 tab 04/28/18 insulin glargine (U-100) 100 40 unit SUBCUT HS #30 each 04/28/18 unit/mL (3 mL) subcutaneous pen lisinopril 5 mg tablet 5 mg PO QDAY #90 tab 04/28/18 Lancets TRUPLUS #1 ea 05/27/18 fluconazole 150 mg tablet 150 mg PO ONCE #2 tab 07/10/18 sulfamethoxazole 800 1 tab PO BID #28 tab 07/10/18 mg-trimethoprim 160 mg tablet Glucose: True Metrix Test Strips #100 each 07/13/18 Allergies Allergy/AdvReac Type Severity Reaction Status Date / Time cephalexin [CEPHALEXIN] Allergy Mild rash Verified 07/07/18 13:32 ibuprofen [From Motrin] Allergy Mild Verified 07/07/18 13:32 latex [LATEX] Allergy Mild unknown Verified 07/07/18 13:32 Review of Systems <Fina Griffith PA-C - Last Filed: 07/07/18 21:46> Review of Systems ROS Unobtainable: All systems reviewed & are unremarkable except as noted in HPI and below PFSH <Fina Griffith PA-C - Last Filed: 07/07/18 21:46> Social History marital status: details: harley España, lives in [place] household members: spouse lives independently: Yes caregiver/support person: No housing: house occupational status: employed Smoking Status: Current every day smoker quit status: not considering quitting alcohol intake: current substance use type: does not use Exam <Fina Griffith PA-C - Last Filed: 07/07/18 21:46> Narrative Exam Narrative: GENERAL APPEARANCE: Patient sitting comfortably, in no distress. LUNGS: Clear to auscultation bilaterally. HEART: Rate and rhythm regular without murmur, normal S1 and S2, no S3 or S4. DERMATOLOGIC: Left hand no wounds or skin abnormalities MUSCULOSKELETAL: Mild effusion over the left pointer finger, noted more proximally. Tender over the pointer finger most between the MCP and PIP joint, minimal tenderness elsewhere over the finger. Today finger is held in normal extension. No tenderness with passive extension. Tendon strength intact in all darden against resistance. NEUROVASCULAR: Left hand fingers are warm and pink with brisk cap refill, sensation is grossly intact Initial Vital Signs Initial Vital Signs: Vital Signs Temperature 98.2 F 07/07/18 13:30 Pulse Rate 69 07/07/18 13:30 Respiratory Rate 16 07/07/18 13:30 Blood Pressure 113/75 07/07/18 13:30 Pulse Oximetry 96 07/07/18 13:30 <Tyrese Sanches DO - Last Filed: 07/13/18 23:56> Initial Vital Signs Initial Vital Signs: Vital Signs Temperature 98.2 F 07/07/18 13:30 Pulse Rate 69 07/07/18 13:30 Respiratory Rate 16 07/07/18 13:30 Blood Pressure 113/75 07/07/18 13:30 Pulse Oximetry 96 07/07/18 13:30 Course <Fina Griffith PA-C - Last Filed: 07/07/18 21:46> Additional Information: Finger is significantly improved today on exam in terms of swelling as well as pain and mobility. More likely an atypical tendinitis due to repetitive motion, splinting appears to have helped substantially. Dr. Sanches has evaluated as well and agrees with plan to continue splinting. Advised follow-up with PCP in the next few days for recheck, and she agrees to return if any acutely worsening symptoms again or new symptoms such as fever, redness, etc. Vital Signs - 8 hr 07/07/18 13:30 Temperature 98.2 F Pulse Rate 69 Respiratory Rate 16 Blood Pressure 113/75 Pulse Oximetry 96 <Tyrese Sanches DO - Last Filed: 07/13/18 23:56> Vital Signs - 8 hr 07/07/18 13:30 Temperature 98.2 F Pulse Rate 69 Respiratory Rate 16 Blood Pressure 113/75 Pulse Oximetry 96 Discharge Plan Departure Patient Disposition: Home Clinical Impression: Tendinitis of finger of left hand Discharge Date/Time: 07/07/18 15:33 Interventions: ED Discharge Assessment Last Done: 07/07/18 15:33 Instructions: DI for Tendinitis Activity Restrictions/Additional Instructions: Since your finger is somewhat better today, it is okay to monitor this as long as you continue wearing the splint since that seems to have helped. Please be sure to wear this 24/, it is okay to take it off for short periods when home resting, or bathing, but especially important at work and during the day. You should return as we talked about if you have any acutely worsening swelling or pain again, or new symptoms such as fever. Otherwise, please follow-up with your PCP in 2-3 days for recheck. Prescriptions: No Action cholecalciferol (vitamin D3) [Vitamin D3] 2,000 UNIT tablet 1 tab PO QDAY Qty: 90 RF: 3 [place] 5/16 Inch SQ HS Qty: 50 RF: 11 albuterol sulfate 2.5 MG/3 ML solution for nebulization 3 ml INH Q6H Qty: 1 RF: 1 CPAP: CPAP/PAP Full Face Mask Qty: 1 RF: 0 Lancets TRUPLUS .Route .MEDSUPPLY Qty: 1 RF: 11 sulfamethoxazole-trimethoprim 800-160 mg tablet 1 tab PO BID Qty: 28 RF: 0 fluconazole 150 mg tablet 150 mg PO ONCE Qty: 2 RF: 0 Glucose: True Metrix Test Strips .ROUTE .MEDSUPPLY Qty: 100 RF: 6 fenofibrate 160 mg tablet 160 mg PO QDAY Qty: 90 RF: 3 glyburide 5 mg tablet 5 mg PO BID Qty: 180 RF: 3 omeprazole 40 mg capsule,delayed release(DR/EC) 40 mg PO QAM Qty: 30 RF: 11 aspirin 81 mg tablet,delayed release (DR/EC) 81 mg PO BID Qty: 30 RF: 12 lisinopril [Zestril] 5 mg tablet 5 mg PO QDAY Qty: 90 RF: 6 clonazepam [Klonopin] 1 mg tablet 1 mg PO BID Qty: 180 RF: 3 Basaglar KwikPen U-100 Insulin 100 unit/mL (3 mL) insulin pen 40 unit SUBCUT HS Qty: 30 RF: 10 Ventolin HFA 90 mcg/actuation HFA aerosol inhaler 2 puff INHALATION Q4-6H PRN (Reason: shortness of breath) Qty: 18 RF: 11 Resmed Aircurve 10 BIPAP Qty: 1 RF: 0 Referrals: Vic Brothers MD [Primary Care Provider] - <Tyrese Sanches, - Last Filed: 07/13/18 23:56> [facility] ED Attending [place] Attestation: [facility] Documentation has been reviewed. I agree with assessment and plan.
== END 2018-07-07 15:33 | disposition home or self-care (01) ==
PROVIDERS: Emergency Provider Internal Medicine; PCP Internal Medicine
DX: M77.9 Enthesopathy, unspecified (principal)
CPT/HCPCS: 99282

== ENCOUNTER → 2018-08-21 06:55 | Outpatient (CLI) | payer OTHER, MEDICAID, SELFPAY ==
[2018-08-21 09:09] LABS: Hemoglobin A1C% w Est Avg Glu 8.8 % (4.0-6.0)
[2018-08-21 09:39] LABS: Alanine Aminotransferase 21 IU/L (9-52); Albumin 3.9 g/dL (3.5-5.0); Albumin Globulin Ratio 1.4 (1.0-2.8); Alkaline Phosphatase 61 U/L (38-126); Aspartate Aminotransferase 13 IU/L (14-36); Bilirubin Total 0.6 mg/dL (0.2-1.3); Blood Urea Nitrogen 12 mg/dL (7-17); Calcium 8.9 mg/dL (8.4-10.2); Carbon Dioxide 27 mmol/L (22-32); Chloride 101 mmol/L (98-107); Cholesterol 178 mg/dL (140-199); Estimated Glomerular Filt Rate > 60.0 mL/min (>60); Globulin 2.8 g/dL (1.7-4.1); Glucose 215 mg/dL (70-100); HDL Cholesterol 18 mg/dL (40-60); HEMOLYSIS < 15 (0-50); Potassium 4.6 mmol/L (3.4-5.1); Sodium 139 mmol/L (137-145); Total Protein 6.7 g/dL (6.3-8.2)
[2018-08-21 09:49] LABS: Triglycerides 707 mg/dL (35-150)
== END ==
PROVIDERS: PCP Internal Medicine; Visit Provider Internal Medicine
DX: E11.65 Type 2 diabetes mellitus with hyperglycemia (principal); E78.1 Pure hyperglyceridemia
CPT/HCPCS: 36415; 80053; 80061; 83036

== ENCOUNTER → 2018-09-28 13:26 | Outpatient (CLI) | payer OTHER, MEDICAID, SELFPAY ==
--- NOTE | 2018-09-28 13:53 | DIET.PN ---
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 HT: 5'2 WT: 280# Wt goal: 266# or lower lost 49# since 09/10 BMI: Labs: Nutrition Diagnosis: diabetic neuropathy drinks 1gallon water per day, loves ice water Wakes 6am drinks 8oz low sodium V8 B 7am: 2 c Coffee c 1 tsp panamanian vanilla creamer Lunch noon: salad, or chicken lluvia c no bread, hot dog c no bread, spoonful peanut butter dinner: same as lunch or other acceptable veggies: brussels sprouts, broccoli (boiled), bagged salad mix sometimes adds onion soup mix c sour cream to dip tries to do low carb and no fruit high cholesterol and blood sugar c neuropathy main concerns, and grandkids. 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
== END ==
PROVIDERS: PCP Internal Medicine; Visit Provider Internal Medicine
DX: E78.5 Hyperlipidemia, unspecified (principal); Z01.818 Encounter for other preprocedural examination
CPT/HCPCS: 97802

== ENCOUNTER → 2018-10-12 13:53 | Outpatient (CLI) | payer OTHER, MEDICAID, SELFPAY ==
--- NOTE | 2018-10-12 13:56 | DIET.PN ---
Dietary Progress Note Assessment: WT: 281# (270# at dr office 1 week ago) This has been a stressful two weeks, working a lot (more than usual summer season), caring for mother and grandbabies, niece, planning wedding (Nov 01) Walks the dogs for extra movement but continues to have barrier of diabetic neuropathy in legs and feet. Usual intake this week: b: V8, coffee snacks: cucumbers c sour cream dip, celery and PB L and D: usually a Pro and Vegetable Interventions: Pt will start on Magnesium Citrate 400mg each night to see if it will help w neuropathy and cramps, also to reduce constipation. Pt will start eating a hard boiled egg for breakfast with V8 and coffee to boost metabolism and keep body in fed state. Monitoring/Evaluations: f/u in 2 w
== END ==
PROVIDERS: PCP Internal Medicine; Visit Provider Internal Medicine
DX: K59.00 Constipation, unspecified (principal)
CPT/HCPCS: 97802

== ENCOUNTER → 2018-11-23 14:01 | Outpatient (CLI) | payer OTHER, MEDICAID, SELFPAY ==
--- NOTE | 2018-11-23 14:07 | DIET.PN ---
Dietary Progress Note Assessment: 43y F here for fourth pre-bariatric appointment. WT: 282# (+2# since last visit 1mo ago) Eating apple juice/apple cider vinegar in am and magnesium citrate at night to help c neuropathy, does help. Salads, cucumbers or broccoli c onion dip, hot dogs, brats, meatloaf hurt back, joined [email or web address]- using recumbant bike now but wants to conquer elliptical [employer] four days per week so will do gym 4d per week right after work without going home first. Will start 30 minutes and try to work up to 60minutes per session. Is feeling frustrated, wants to lose wt and not fail out of bariatric surgery. Interventions: Discussed strategy of increasing exercise in order to see meaningful wt loss. Pt current routine works for maintenance but needs to increase PA to see wt loss. Pt will photograph a day's worth of meals in addition to her normal written food log so RD can give suggestions on food type/amount consumed. Pt interested in learning stretching routine. RD will bring stretch routine for pt next visit.
== END ==
PROVIDERS: PCP Internal Medicine; Visit Provider Internal Medicine
DX: E66.9 Obesity, unspecified (principal); Z71.3 Dietary counseling and surveillance
CPT/HCPCS: 97802

== ENCOUNTER → 2018-12-01 16:58 | Outpatient (CLI) | payer OTHER, MEDICAID, SELFPAY ==
[2018-12-01 17:54] LABS: Add Manual Diff / Slide Review NO; Basophils Absolute Auto 100 /uL (0-100); Basophils Percent Auto 0.7 % (0-2); Eosinophils Absolute Auto 200 /uL (0-450); Eosinophils Percent Auto 1.6 % (2-4); Hematocrit 44.3 % (36-46); Hemoglobin 15.2 g/dL (12.0-16.0); Lymphocytes Absolute Auto 3300 /uL (1100-4500); Lymphocytes Percent Auto 32.3 % (25-40); Mean Corpuscular HGB Conc 34.4 % (30-36); Mean Corpuscular Hemoglobin 31.1 PG (26-34); Mean Corpuscular Volume 90.2 fL (80-100); Monocytes Absolute Auto 400 /uL (0-900); Monocytes Percent Auto 4.1 % (3-14); Neutrophils Absolute Auto 6200 /uL (1500-7000); Neutrophils Percent Auto 61.3 % (50-75); Platelet Count 313 X10^3/uL (150-400); Red Blood Cell Count 4.91 X10^6/uL (4.0-5.2); Red Cell Distribution Width 13.6 % (11.6-14.8); White Blood Cell Count 10.2 X10^3/uL (4.5-11.0)
[2018-12-01 18:06] LABS: Hemoglobin A1C% w Est Avg Glu 8.9 % (4.0-6.0)
[2018-12-01 18:13] LABS: Erythrocyte Sedimentation Rate 10 MM/HR (0-20)
[2018-12-01 18:41] LABS: Blood Urea Nitrogen 10 mg/dL (7-17); C-Reactive Protein Quant 1.2 mg/dL (<1.0); Calcium 9.5 mg/dL (8.4-10.2); Carbon Dioxide 27 mmol/L (22-32); Chloride 100 mmol/L (98-107); Estimated Glomerular Filt Rate > 60.0 mL/min (>60); Glucose 273 mg/dL (70-100); HEMOLYSIS 16 (0-50); Potassium 4.4 mmol/L (3.4-5.1); Sodium 137 mmol/L (137-145)
== END ==
PROVIDERS: PCP Internal Medicine; Visit Provider Internal Medicine
DX: R50.9 Fever, unspecified (principal); E11.65 Type 2 diabetes mellitus with hyperglycemia; E78.1 Pure hyperglyceridemia
CPT/HCPCS: 36415; 80048; 83036; 85025; 85651; 86140

== ENCOUNTER → 2018-12-07 13:54 | Outpatient (CLI) | payer OTHER, MEDICAID, SELFPAY ==
--- NOTE | 2018-12-07 13:57 | DIET.PN ---
Dietary Progress Note Assessment: Rosita is here for 5th pre-bariatric appt. Stopped going to the gym but is doing crunches, jumping jacks, other calisthenics daily at home, walks around block 12x/d with two dogs, they do stop and sniff but still moving. Discussed resistance training today, not to fear this bulking up muscles as muscles are metabolic tissue and will help to burn calories. Gave pt resistance band and set of exercises, will start with 2 sets of 5 reps. HT: 5'2 WT: 278# (-2# since last visit) Monitoring/Evaluations: Pt will do calisthenics and walking daily and incorporate resistance training every other day. Goal is to lose 2# by next visit in 2w.
== END ==
PROVIDERS: PCP Internal Medicine; Visit Provider Internal Medicine
DX: Z01.818 Encounter for other preprocedural examination (principal); E66.9 Obesity, unspecified; Z71.3 Dietary counseling and surveillance
CPT/HCPCS: 97802

== ENCOUNTER → 2018-12-21 13:47 | Outpatient (CLI) | payer OTHER, MEDICAID, SELFPAY ==
--- NOTE | 2018-12-21 14:03 | DIET.PN ---
Dietary Progress Note Assessment: 43y prebariatric pt here for 7th check in. Pt having trouble losing wt, has gained this week. Still dealing c considerable stress and having difficulty purchasing healthy foods c limited food budget. 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 These items tend to be high sodium, high fat, and high kcal though she doesn't snack or eat large quantity and limits carbs. On she goes to [employer] for cheeseburger dog c cheese, no bun. Pt not having issues c binge eating or snacking. Pt started 20 min hina a few days per week and does short walks c her dogs several times per day WT: 284# (+5# from 2w ago) Interventions: Asked pt to record her kcal, sodium, and CHOs to get a better understanding of intake. 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 Encouraged pt to ask for help from people close, to walk with her and encourage her. 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 Pt will record kcal, sodium, and carbs of food eaten during day for 1w so we can more closely assess adequate intake.
== END ==
PROVIDERS: PCP Internal Medicine; Visit Provider Internal Medicine
DX: Z01.818 Encounter for other preprocedural examination (principal); E66.9 Obesity, unspecified; Z71.3 Dietary counseling and surveillance
CPT/HCPCS: 97802

== ENCOUNTER 2019-08-04 21:28 | Emergency (ER) | payer OTHER, MEDICAID, SELFPAY ==
[2019-08-04 21:41] VITALS: BP 138/68; PULSE 88; RESP 22; TEMP 36.6; O2SAT 97; BMI 51.2
--- NOTE | 2019-08-04 22:01 | ED.DENTAL ---
HPI - Dental/Oral General Chief complaint: Dental/Oral Stated complaint: tooth pain lt side Time Seen by Provider: 08/04/19 22:01 Source: patient Mode of arrival: Ambulatory Limitations: no limitations History of Present Illness HPI Narrative: 44-year-old diabetic presents with 4 days of increased left 15. Tooth pain now with swelling extending up over the maxilla. She has noticed that her blood sugars have been a bit more retic over the last few days. She is having low-grade headaches because of the pain but is able to open her mouth completely. She has noticed no drainage, no fevers and no pharyngeal discomfort. She did try to contact her dentist but their office was not answering today. MD Complaint: tooth pain Location: Tooth # (15) Related Data Home Medications Medication Instructions Recorded Confirmed [place] 5/16 Inch units SQ HS #50 08/07/16 01/26/19 Resmed Aircurve 10 BIPAP #1 ea 06/16/18 01/26/19 magnesium citrate 125 mg capsule 375 mg PO BEDTIME cap 01/26/19 01/26/19 Previous Rx's Medication Instructions Recorded cholecalciferol (vitamin D3) 1 tab PO QDAY #90 tab 02/29/16 [Vitamin D3] albuterol sulfate 3 ml INH Q6H #1 box 11/14/16 aspirin 81 mg tablet,delayed 81 mg PO BID #30 tab 08/05/17 release omeprazole 40 mg capsule,delayed 40 mg PO QAM #30 cap 08/05/17 release Lancets TRUPLUS #1 ea 05/27/18 Glucose: True Metrix Test Strips #100 each 07/13/18 glyburide 5 mg tablet 5 mg PO BID #180 tab 08/18/18 fenofibrate 160 mg tablet 160 mg PO QDAY #90 tab 08/24/18 albuterol sulfate 90 mcg/actuation 2 puff INHALATION Q4-6H PRN #18 01/26/19 aerosol inhaler gram fluconazole 150 mg tablet 150 mg PO Q3D #4 tab 01/26/19 sulfamethoxazole 800 1 tab PO BID #28 tab 01/26/19 mg-trimethoprim 160 mg tablet insulin glargine 100 unit/mL (3 40 unit SUBCUT DAILY #60 ml 05/10/19 mL) subcutaneous pen lisinopril 5 mg tablet 5 mg PO QDAY #90 tab 05/10/19 clonazepam 1 mg tablet 1 mg PO BID #180 tab 07/12/19 Allergies Allergy/AdvReac Type Severity Reaction Status Date / Time cephalexin [CEPHALEXIN] Allergy Mild rash Verified 01/26/19 16:03 ibuprofen [From Motrin] Allergy Mild Verified 01/26/19 16:03 latex [LATEX] Allergy Mild unknown Verified 01/26/19 16:03 Review of Systems Review of Systems Narrative: Pertinent positive and negative findings as per HPI Remainder of review of systems is otherwise unremarkable for Constitutional: Fevers, chills, weakness ENT: No sore throat, neck pain, ear pain CV: Chest pain, palpitations, dyspnea on exertion Respiratory: Cough, wheeze, dyspnea GI: Nausea, vomiting, diarrhea, change in bowel habits, black or bloody stools : Dysuria, hematuria, flank pain Patient History Medical History Asthma (Chronic) Migraine headache without aura (Chronic) Mixed anxiety depressive disorder (Chronic 03/31/15) Morbid obesity (Chronic 08/15/15) Obstructive sleep apnea syndrome (Chronic 03/31/15) Polycystic ovaries (Chronic) Type 2 diabetes mellitus with other specified complication (Chronic 03/16/15) Surgical History S/P hysterectomy (Inactive) S/P laparoscopic cholecystectomy (Inactive) S/P tonsillectomy and adenoidectomy (Inactive) S/P tubal ligation (Inactive) Family History Father Diabetes mellitus Mother Seizure Grandmother Coronary artery disease Social History marital status: details: harley [place], lives in [place] household members: spouse lives independently: Yes caregiver/support person: No housing: house occupational status: employed Smoking Status: Current every day smoker quit status: not considering quitting alcohol intake: current substance use type: does not use Smoking Status: Current every day smoker tobacco type: cigarettes alcohol intake frequency: holidays/special occasions only Substance Use Type: does not use Exam Narrative Exam Narrative: General: Alert appropriate in no moderate distress ENT: Flushed, fullness over the left maxilla extending toward the angle of the jaw. No obvious pointing abscess on oral exam, no broken teeth. No cervical adenopathy Respiratory: Able to speak in full sentences, no obvious respiratory distress Skin: No obvious rashes, warm and dry Neurologic: Grossly intact no obvious asymmetries or abnormalities Psych, appropriate insight and affect, cooperative Initial Vital Signs Initial Vital Signs: Vital Signs Temperature 97.9 F 08/04/19 21:41 Pulse Rate 88 08/04/19 21:41 Respiratory Rate 22 08/04/19 21:41 Blood Pressure 138/68 08/04/19 21:41 Pulse Oximetry 97 08/04/19 21:41 Course Orders Ordered: Discontinued Medications Amoxicillin ( Trimox 250mg Prepack) 1 bottle MISC SEEINSTR ONE Stop: 08/04/19 22:11 Oxycodone/Acetaminophen (Endocet 5/325 Prepack) 1 bottle MISC SEEINSTR ONE Stop: 08/04/19 22:11 Vital Signs Vital signs: Vital Signs - 8 hr 08/04/19 21:41 Temperature 97.9 F Pulse Rate 88 Respiratory Rate 22 Blood Pressure 138/68 Pulse Oximetry 97 [facility] - Dental/Oral Medical Records Attestation: I reviewed the patient's medical records. [facility] Narrative Medical decision making narrative: Dental infection tooth 15. That looks like it has a crown. No abscess. Antibiotics, pain control, and follow-up with her dentist for definitive care. Discharge Plan Departure Patient Disposition: Home Clinical Impression: Dental abscess Instructions: DI for Dental Pain Activity Restrictions/Additional Instructions: Thank you for coming in today I wish you are experiencing so much pain. I am going to start you on amoxicillin, 500 mg 3 times a day for 7 days to help with the infection that has started from your left upper 2nd molar. There is no obvious abscess that needs drainage at this time. Please use 1-2 Percocet as needed every 6 hours for the severe pain. You will need to contact your dentist for definitive care, you may end up needing a root canal or an extraction. If you find that your blood sugar control is getting dramatically worse, you developing fevers chills or worsening headache please feel free to return to the emergency department for re-evaluation. I hope you feel better quickly Prescriptions: No Action cholecalciferol (vitamin D3) [Vitamin D3] 2,000 UNIT tablet 1 tab PO QDAY Qty: 90 RF: 3 [place] 07/09 Inch SQ HS Qty: 50 RF: 11 albuterol sulfate 2.5 MG/3 ML solution for nebulization 3 ml INH Q6H Qty: 1 RF: 1 (DME) Lancets TRUPLUS 0 .Route .MEDSUPPLY Qty: 1 RF: 11 (DME) Glucose: True Metrix Test Strips 0 .Route .MEDSUPPLY Qty: 100 RF: 6 glyburide 5 mg tablet 5 mg PO BID Qty: 180 RF: 3 lisinopril [Zestril] 5 mg tablet 5 mg PO QDAY Qty: 90 RF: 3 Lantus Solostar U-100 Insulin 100 unit/mL (3 mL) insulin pen 40 unit SUBCUT DAILY Qty: 60 RF: 3 clonazepam [Klonopin] 1 mg tablet 1 mg PO BID Qty: 180 RF: 3 omeprazole 40 mg capsule,delayed release(DR/EC) 40 mg PO QAM Qty: 30 RF: 11 aspirin 81 mg tablet,delayed release (DR/EC) 81 mg PO BID Qty: 30 RF: 12 fenofibrate 160 mg tablet 160 mg PO QDAY Qty: 90 RF: 3 magnesium citrate 125 mg capsule 375 mg PO BEDTIME RF: 0 Ventolin HFA 90 mcg/actuation HFA aerosol inhaler 2 puff INHALATION Q4-6H PRN (Reason: shortness of breath) Qty: 18 RF: 11 sulfamethoxazole-trimethoprim 800-160 mg tablet 1 tab PO BID Qty: 28 RF: 1 fluconazole 150 mg tablet 150 mg PO Q3D Qty: 4 RF: 1 (DME) Resmed Aircurve 10 BIPAP Qty: 1 RF: 0 Referrals: Vic Brothers MD [Primary Care Provider] -
[2019-08-04] MEDS: OXYCODONE/APAP 5/325 PREPACK 1 BOTTLE MISC (22:20)
[2019-08-04] MEDS: AMOXICILLIN 250 MG PREPACK 1 BOTTLE MISC (22:20)
== END 2019-08-04 22:26 | disposition home or self-care (01) ==
PROVIDERS: Emergency Provider Emergency Medicine; PCP Internal Medicine
DX: K04.7 Periapical abscess without sinus (principal)
CPT/HCPCS: 99281; 99283

== ENCOUNTER 2019-10-18 18:00 | Emergency (ER) | payer OTHER, MEDICAID, SELFPAY ==
[2019-10-18 18:34] VITALS: BP 160/79; PULSE 79; RESP 18; TEMP 36.8; O2SAT 98; BMI 40.2
== END 2019-10-18 19:33 | disposition left against medical advice (07) ==
PROVIDERS: Emergency Provider Emergency Medicine; PCP Internal Medicine
CPT/HCPCS: 99281

== ENCOUNTER → 2019-12-08 07:09 | Outpatient (CLI) | payer OTHER, MEDICAID, SELFPAY ==
[2019-12-08 08:41] LABS: Hemoglobin A1C% w Est Avg Glu 9.4 % (4.0-6.0)
[2019-12-08 08:48] LABS: Alanine Aminotransferase 27 IU/L (<35); Albumin 3.9 g/dL (3.5-5.0); Albumin Globulin Ratio 1.3 (1.0-2.8); Alkaline Phosphatase 75 U/L (38-126); Aspartate Aminotransferase 20 IU/L (14-36); BUN Creatinine Ratio 22.7 (6-22); Bilirubin Total 0.7 mg/dL (0.2-1.3); Blood Urea Nitrogen 15 mg/dL (7-17); Calcium 8.8 mg/dL (8.4-10.2); Carbon Dioxide 30 mmol/L (22-32); Chloride 99 mmol/L (98-107); Cholesterol 202 mg/dL (140-199); Estimated Glomerular Filt Rate > 60.0 mL/min (>60); Globulin 3.1 g/dL (1.7-4.1); Glucose 307 mg/dL (70-100); HDL Cholesterol 19 mg/dL (40-60); HEMOLYSIS < 15 (0-50); Potassium 3.8 mmol/L (3.4-5.1); Sodium 135 mmol/L (137-145)
[2019-12-08 09:04] LABS: Triglycerides 1274 mg/dL (35-150)
== END ==
PROVIDERS: PCP Internal Medicine; Referring Provider Internal Medicine; Visit Provider Internal Medicine
DX: E11.65 Type 2 diabetes mellitus with hyperglycemia (principal); E78.1 Pure hyperglyceridemia; G43.009 Migraine without aura, not intractable, without status migrainosus; Z79.4 Long term (current) use of insulin
CPT/HCPCS: 36415; 80053; 80061; 83036

== ENCOUNTER 2020-01-19 19:41 | Emergency (ER) | payer OTHER, MEDICAID, SELFPAY ==
[2020-01-19 19:45] VITALS: BP 178/104; PULSE 89; RESP 22; TEMP 37.1; O2SAT 97
--- NOTE | 2020-01-19 20:01 | ED_ITS ---
HPI - General Adult General Chief complaint: Urogenital-Female Stated complaint: thinks bladder infection Time Seen by Provider: 01/19/20 19:48 Source: patient Mode of arrival: Ambulatory History of Present Illness HPI narrative: 44-year-old type 2 diabetic, obesity, anxiety, tobacco abuse, hyperlipidemia, hypertension presents with 24 hours of hematuria, dysuria and frequency with increasing perineal pain and tenderness with a sense of swelling and feeling like it is becoming more difficult to urinate. She describes no vaginal discharge. She complains of low abdominal pain worse over the bladder. She does note that her insurance is no longer pain for her diabetic test strips so she knows that her sugars have been high but is she is not sure how high. She notes that she gets intertriginous yeast regularly and takes Diflucan weekly to help with this. She has been complaining of increasing hot flashes for the past 3 months and has an appointment with an OBGYN the near future. She has a slight chronic cough and dyspnea that she attributes to her smoking. She describes no chest pain, palpitations, fevers, productive cough or other findings at this time Related Data Home Medications Medication Instructions Recorded Confirmed Bode 5/16 Inch units SQ HS #50 08/07/16 12/06/19 Resmed Aircurve 10 BIPAP #1 ea 06/16/18 01/03/20 magnesium citrate 125 mg capsule 375 mg PO BEDTIME cap 01/26/19 01/03/20 omeprazole 40 mg capsule,delayed 40 mg PO DAILY PRN cap 12/06/19 01/03/20 release Previous Rx's Medication Instructions Recorded cholecalciferol (vitamin D3) 1 tab PO QDAY #90 tab 02/29/16 [Vitamin D3] albuterol sulfate 3 ml INH Q6H #1 box 11/14/16 albuterol sulfate 90 mcg/actuation 2 puff INHALATION Q4-6H PRN #18 01/26/19 aerosol inhaler gram lisinopril 5 mg tablet 5 mg PO QDAY #90 tab 05/10/19 Lancets TRUPLUS #100 each 09/15/19 clonazepam 1 mg tablet 1 mg PO BID #180 tab 09/15/19 fenofibrate 160 mg tablet 160 mg PO QDAY #90 tab 12/06/19 insulin glargine 100 unit/mL (3 60 unit SUBCUT DAILY #75 ml 12/06/19 mL) subcutaneous pen atorvastatin 40 mg tablet 40 mg PO DAILY #90 tab 12/13/19 glyburide 5 mg tablet 5 mg PO BID #180 tab 12/24/19 fluconazole 150 mg tablet 150 mg PO Q3D #4 tab 01/17/20 oxycodone-acetaminophen 2 tab PO Q6H PRN #14 tab 01/19/20 Allergies Allergy/AdvReac Type Severity Reaction Status Date / Time cephalexin [CEPHALEXIN] Allergy Mild rash Verified 01/03/20 15:23 ibuprofen [From Motrin] Allergy Mild Verified 01/03/20 15:23 latex [LATEX] Allergy Mild unknown Verified 01/03/20 15:23 Review of Systems Review of Systems Narrative: Remainder of review of systems including constitutional, ENT, cardiovascular, respiratory, GI, , musculoskeletal, skin, neurologic and psychiatric systems reviewed and are unremarkable except as noted in HPI. Patient History Medical History (Updated 01/19/20 @ 23:05 by Coral Mcdowell MD) Asthma Kidney stone Migraine headache without aura Mixed anxiety depressive disorder (03/31/15) Morbid obesity (08/15/15) Obstructive sleep apnea syndrome (03/31/15) Polycystic ovaries Type 2 diabetes mellitus with other specified complication (03/16/15) Surgical History S/P hysterectomy S/P laparoscopic cholecystectomy S/P tonsillectomy and adenoidectomy S/P tubal ligation Family History Father Diabetes mellitus Mother Seizure Grandmother Coronary artery disease Social History marital status: details: harley España, lives in [place] household members: spouse lives independently: Yes caregiver/support person: No housing: house occupational status: employed Smoking Status: Current every day smoker quit status: not considering quitting alcohol intake: current substance use type: does not use Smoking Status: Current every day smoker tobacco type: cigarettes alcohol intake frequency: holidays/special occasions only Substance Use Type: does not use Exam Narrative Exam Narrative: General: Morbidly obese woman in obvious lower abdominal pain, Able to give a complete and coherent history. HEENT: Moist mucous membranes, normal sclera with reactive pupils, mildly injec lenny sclera bilaterally Neck: No JVD, supple Respiratory: Lungs with mild scattered wheeze but no rales no rhonchi. Full and symmetrical air movement Cardiac: Regular rate and rhythm no murmurs no bruits Abdomen: Obese, Soft, tender in the lower abdomen worse centrally but does include right and left lower quadrants. Good bowel tones, right-sided flank pain Skin: Warm and dry, no rashes Perineum: Beefy red with white discharge, irritated and slightly inflamed consistent with yeast vaginitis Neurologic: Grossly neurologically intact with no obvious asymmetries or abnormalities Extremities: No trauma, well perfused Psych: Cooperative, appropriate insight and affect Initial Vital Signs Initial Vital Signs: Vital Signs Temperature 98.8 F 01/19/20 19:45 Pulse Rate 89 01/19/20 19:45 Respiratory Rate 22 01/19/20 19:45 Blood Pressure 178/104 H 01/19/20 19:45 Pulse Oximetry 97 01/19/20 19:45 Course Orders Ordered: ED Orders 01/19/20 17:51 Urine Culture Stat Urine Microscopic Stat 01/19/20 20:37 Urinalysis and Microscopic Stat 01/19/20 20:40 Complete Blood Count AUTO DIFF Stat Follicle Stimulating Hormone Stat Hemoglobin A1C% w Est Avg Glu Stat Procalcitonin Stat 01/19/20 20:49 Comprehensive Metabolic Panel Stat Ketones (Beta-Hydroxybutyrate) Stat Lactate (Lactic Acid) Stat Lipase Stat 01/19/20 22:14 CT kidney ureter bladder (KUB) Stat Discontinued Medications Acetaminophen (Acetaminophen 325 Mg Tablet) 975 mg PO NOW ONE Stop: 01/19/20 20:00 Last Admin: 01/19/20 20:42 Dose: 975 mg Documented by: VILMA Oxycodone/Acetaminophen (Oxycodone/Apap 5/325 Prepack) 1 bottle MISC SEEINSTR ONE Stop: 01/19/20 23:02 Vital Signs Vital signs: Vital Signs - 8 hr 01/19/20 19:45 Temperature 98.8 F Pulse Rate 89 Respiratory Rate 22 Blood Pressure 178/104 H Pulse Oximetry 97 Medical Decision Making Lab Data Lab results reviewed: Yes I reviewed the patient's lab results. Result diagrams: 01/19/20 20:40 01/19/20 20:49 Labs: Lab Results 01/19/20 01/19/2001/18/20 Range/Units 17:51 20:40 20:40 WBC 12.9 H (4.5-11.0) X10^3/uL RBC 5.03 (4.0-5.2) X10^6/uL Hgb 15.5 (12.0-16.0) g/dL Hct 45.1 (36-46) % MCV 89.8 (80-100) fL MCH 30.8 (26-34) PG MCHC 34.3 (30-36) % RDW 14.3 (11.6-14.8) % Plt Count 287 (150-400) X10^3/uL Neut % (Auto) Not Reportable Lymph % (Auto) Not Reportable [place] % (Auto) Not Reportable Eos % (Auto) Not Reportable Baso % (Auto) Not Reportable Lymph # (Auto) Not Reportable [place] # (Auto) Not Reportable Baso # (Auto) Not Reportable Total Counted 100 Seg Neutrophils % 71.0 H (38-70) % Band Neutrophils % 5.0 (3-7) % Lymphocytes % (Manual) 20.0 L (25-45) % Eosinophils % (Manual) 3.0 (2-4) % Myelocytes % 1.0 H (-0) % Neutrophils # (Manual) 9804 H (1268-6217) /uL RBC Morphology Normal morphology Sodium (137-145) mmol/L Potassium (3.4-5.1) mmol/L Chloride (98-107) mmol/L Carbon Dioxide (22-32) mmol/L BUN (7-17) mg/dL Creatinine (0.52-1.04) mg/dL Estimated GFR (>60) mL/min BUN/Creatinine Ratio (6-22) Glucose (70-100) mg/dL Hemoglobin A1c (4.0-6.0) % Lactate (0.7-2.1) mmol/L Calcium (8.4-10.2) mg/dL Total Bilirubin (0.2-1.3) mg/dL AST (14-36) IU/L ALT (<35) IU/L Alkaline Phosphatase (38-126) U/L Total Protein (6.3-8.2) g/dL Albumin (3.5-5.0) g/dL Globulin (1.7-4.1) g/dL Albumin/Globulin Ratio (1.0-2.8) Lipase (23-300) U/L Procalcitonin < 0.05 (<0.5) ng/mL FSH mIU/mL Urine RBC 5-10/hpf H (0-5/HPF) Urine WBC 1-5/hpf (0-5/HPF) Ur Squamous Epith Cells 5-10 /hpf H (0-5/HPF) Amorphous Sediment 1+ Urine Bacteria Moderate (10-30) H (None) Urine Mucus 1+ H (Negative) Ur Culture Indicated? Specimen cultured Ketones (<0.27) mmol/L 01/19/20 01/19/20 01/19/20 Range/Units 20:40 20:40 20:49 WBC (4.5-11.0) X10^3/uL RBC (4.0-5.2) X10^6/uL Hgb (12.0-16.0) g/dL Hct (36-46) % MCV (80-100) fL MCH (26-34) PG MCHC (30-36) % RDW (11.6-14.8) % Plt Count (150-400) X10^3/uL Neut % (Auto) Lymph % (Auto) [place] % (Auto) Eos % (Auto) Baso % (Auto) Lymph # (Auto) [place] # (Auto) Baso # (Auto) Total Counted Seg Neutrophils % (38-70) % Band Neutrophils % (3-7) % Lymphocytes % (Manual) (25-45) % Eosinophils % (Manual) (2-4) % Myelocytes % (-0) % Neutrophils # (Manual) (7409-8976) /uL RBC Morphology Sodium 132 L (137-145) mmol/L Potassium 4.2 (3.4-5.1) mmol/L Chloride 103 (98-107) mmol/L Carbon Dioxide 24 (22-32) mmol/L BUN 13 (7-17) mg/dL Creatinine 0.46 L (0.52-1.04) mg/dL Estimated GFR > 60.0 (>60) mL/min BUN/Creatinine Ratio 28.3 H (6-22) Glucose 280 H (70-100) mg/dL Hemoglobin A1c 9.6 H (4.0-6.0) % Lactate (0.7-2.1) mmol/L Calcium 8.4 (8.4-10.2) mg/dL Total Bilirubin 0.8 (0.2-1.3) mg/dL AST 36 (14-36) IU/L ALT 23 (<35) IU/L Alkaline Phosphatase 82 (38-126) U/L Total Protein 7.1 (6.3-8.2) g/dL Albumin 3.7 (3.5-5.0) g/dL Globulin 3.4 (1.7-4.1) g/dL Albumin/Globulin Ratio 1.1 (1.0-2.8) Lipase 94 (23-300) U/L Procalcitonin (<0.5) ng/mL FSH 6.67 mIU/mL Urine RBC (0-5/HPF) Urine WBC (0-5/HPF) Ur Squamous Epith Cells (0-5/HPF) Amorphous Sediment Urine Bacteria (None) Urine Mucus (Negative) Ur Culture Indicated? Ketones 0.19 (<0.27) mmol/L 11/25/20 Range/Units 20:49 WBC (4.5-11.0) X10^3/uL RBC (4.0-5.2) X10^6/uL Hgb (12.0-16.0) g/dL Hct (36-46) % MCV (80-100) fL MCH (26-34) PG MCHC (30-36) % RDW (11.6-14.8) % Plt Count (150-400) X10^3/uL Neut % (Auto) Lymph % (Auto) [place] % (Auto) Eos % (Auto) Baso % (Auto) Lymph # (Auto) [place] # (Auto) Baso # (Auto) Total Counted Seg Neutrophils % (38-70) % Band Neutrophils % (3-7) % Lymphocytes % (Manual) (25-45) % Eosinophils % (Manual) (2-4) % Myelocytes % (-0) % Neutrophils # (Manual) (4263-8850) /uL RBC Morphology Sodium (137-145) mmol/L Potassium (3.4-5.1) mmol/L Chloride (98-107) mmol/L Carbon Dioxide (22-32) mmol/L BUN (7-17) mg/dL Creatinine (0.52-1.04) mg/dL Estimated GFR (>60) mL/min BUN/Creatinine Ratio (6-22) Glucose (70-100) mg/dL Hemoglobin A1c (4.0-6.0) % Lactate 1.3 (0.7-2.1) mmol/L Calcium (8.4-10.2) mg/dL Total Bilirubin (0.2-1.3) mg/dL AST (14-36) IU/L ALT (<35) IU/L Alkaline Phosphatase (38-126) U/L Total Protein (6.3-8.2) g/dL Albumin (3.5-5.0) g/dL Globulin (1.7-4.1) g/dL Albumin/Globulin Ratio (1.0-2.8) Lipase (23-300) U/L Procalcitonin (<0.5) ng/mL FSH mIU/mL Urine RBC (0-5/HPF) Urine WBC (0-5/HPF) Ur Squamous Epith Cells (0-5/HPF) Amorphous Sediment Urine Bacteria (None) Urine Mucus (Negative) Ur Culture Indicated? Ketones (<0.27) mmol/L Point of Care Testing Glucose POC 265 Urine Dip Bedside Urine Glucose 1000 mg/dl Bedside Urine Bilirubin - Negative Bedside Urine Ketone - Negative Urine Specific [place] 1.030 Bedside Urine Occult Blood ++ Bedside Urine pH 6.0 Bedside Urine Protein +/- 15 Bedside Urine Urobilinogen - Negative Bedside Urine Nitrite - Negative Bedside Urine Leukocytes - Negative Esterase Point of care testing: Point of Care Testing Glucose POC 265 Urine Dip Bedside Urine Glucose 1000 mg/dl Bedside Urine Bilirubin - Negative Bedside Urine Ketone - Negative Urine Specific [place] 1.030 Bedside Urine Occult Blood ++ Bedside Urine pH 6.0 Bedside Urine Protein +/- 15 Bedside Urine Urobilinogen - Negative Bedside Urine Nitrite - Negative Bedside Urine Leukocytes - Negative Esterase [facility] Narrative Medical decision making narrative: 44-year-old woman presents with lower abdominal pain concerned that she has a bladder infection. Urine does not show bacteria or white cells but does show bit of blood. CT scan confirms a 2 mm stone left-sided ureterovesical junction. No evidence of diverticulitis, urinary or kidney infection or other masses or tumors. With respect to her hot flashes her FSH is within normal limits. 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 Blood sugars are continuing to increase and hemoglobin A1c continues to i ncrease. She states that she is continuing to try to contact her insurance to see which monitor and strips they will cover now that they are no longer willing to pay for her current ones. As she drove herself, she has declined any pain medication (nonsteroidals make her itchy) she is discharged home with a Percocet prepack in a printed prescription for more. Instructions to return should she have worsening pain. She is safe for home discharge at this time Discharge Plan Departure Patient Disposition: Home Clinical Impression: Ureterolithiasis Instructions: DI for Kidney Infection Activity Restrictions/Additional Instructions: Thank you for coming in today You have a 2 mm kidney stone that is causing all of your pain. It is almost ready to drop into your bladder and once that happens the pain will improve significantly. You do not have a bladder infection or colitis. There is no evidence of other tumors, masses or complications. Your blood work was reassuring. For pain, please use 1-2 Percocet every 4 hours and make sure you drinking plenty of fluids. If the pain gets worse, he developed fevers or chills or other concerning symptoms, please return to the emergency room and I am happy to help. Prescriptions: New oxycodone-acetaminophen 5-325 mg tablet 2 tab PO Q6H PRN (Reason: pain) Qty: 14 RF: 0 No Action cholecalciferol (vitamin D3) [Vitamin D3] 2,000 UNIT tablet 1 tab PO QDAY Qty: 90 RF: 3 Bode 5/16 Inch SQ HS Qty: 50 RF: 11 albuterol sulfate 2.5 MG/3 ML solution for nebulization 3 ml INH Q6H Qty: 1 RF: 1 lisinopril [Zestril] 5 mg tablet 5 mg PO QDAY Qty: 90 RF: 3 (DME) Lancets TRUPLUS 0 .Route .MEDSUPPLY Qty: 100 RF: 2 clonazepam [Klonopin] 1 mg tablet 1 mg PO BID Qty: 180 RF: 3 atorvastatin 40 mg tablet 40 mg PO DAILY Qty: 90 RF: 3 glyburide 5 mg tablet 5 mg PO BID Qty: 180 RF: 0 fluconazole 150 mg tablet 150 mg PO Q3D Qty: 4 RF: 0 magnesium citrate 125 mg capsule 375 mg PO BEDTIME RF: 0 Ventolin HFA 90 mcg/actuation HFA aerosol inhaler 2 puff INHALATION Q4-6H PRN (Reason: shortness of breath) Qty: 18 RF: 11 omeprazole 40 mg capsule,delayed release(DR/EC) 40 mg PO DAILY PRNRF: 0 fenofibrate 160 mg tablet 160 mg PO QDAY Qty: 90 RF: 3 Lantus Solostar U-100 Insulin 100 unit/mL (3 mL) insulin pen 60 unit SUBCUT DAILY Qty: 75 RF: 8 (DME) Resmed Aircurve 10 BIPAP Qty: 1 RF: 0 Referrals: Vic Brothers MD [Primary Care Provider] -
[2020-01-19 20:09] LABS: RBC Urine 5-10/HPF (0-5/HPF); Squamous Epithelial Cell Urine 5-10 /HPF (0-5/HPF); WBC Urine 1-5/HPF (0-5/HPF)
[2020-01-19 20:10] LABS: Amorphous Sediment Urine 1+; Bacteria Urine Moderate (10-30); Culture Indicated Urine Specimen Cultured; Mucus Urine 1+ (Negative)
[2020-01-19] MEDS: ACETAMINOPHEN 325 MG TABLET 975 MG PO (20:42)
[2020-01-19 21:05] LABS: Alanine Aminotransferase 23 IU/L (<35); Albumin 3.7 g/dL (3.5-5.0); Albumin Globulin Ratio 1.1 (1.0-2.8); Alkaline Phosphatase 82 U/L (38-126); Aspartate Aminotransferase 36 IU/L (14-36); BUN Creatinine Ratio 28.3 (6-22); Bilirubin Total 0.8 mg/dL (0.2-1.3); Blood Urea Nitrogen 13 mg/dL (7-17); Calcium 8.4 mg/dL (8.4-10.2); Carbon Dioxide 24 mmol/L (22-32); Chloride 103 mmol/L (98-107); Estimated Glomerular Filt Rate > 60.0 mL/min (>60); Globulin 3.4 g/dL (1.7-4.1); Glucose 280 mg/dL (70-100); Lactate (Lactic Acid) 1.3 mmol/L (0.7-2.1); Lipase 94 U/L (23-300); Sodium 132 mmol/L (137-145); Total Protein 7.1 g/dL (6.3-8.2)
[2020-01-19 21:07] LABS: HEMOLYSIS 235 (0-50)
[2020-01-19 21:08] LABS: Ketones (Beta-Hydroxybutyrate) 0.19 mmol/L (<0.27); Potassium 4.2 mmol/L (3.4-5.1)
[2020-01-19 21:11] LABS: Hemoglobin A1C% w Est Avg Glu 9.6 % (4.0-6.0)
[2020-01-19 21:19] LABS: Procalcitonin < 0.05 ng/mL (<0.5)
[2020-01-19 21:24] LABS: Follicle Stimulating Hormone 6.67 mIU/mL
[2020-01-19 21:26] LABS: Platelet Count 287 X10^3/uL (150-400)
[2020-01-19 21:30] LABS: White Blood Cell Count 12.9 X10^3/uL (4.5-11.0)
[2020-01-19 21:44] LABS: Add Manual Diff / Slide Review YES; Hematocrit 45.1 % (36-46); Hemoglobin 15.5 g/dL (12.0-16.0); Mean Corpuscular HGB Conc 34.3 % (30-36); Mean Corpuscular Hemoglobin 30.8 PG (26-34); Mean Corpuscular Volume 89.8 fL (80-100); Red Blood Cell Count 5.03 X10^6/uL (4.0-5.2); Red Cell Distribution Width 14.3 % (11.6-14.8)
[2020-01-19 21:55] LABS: Total Cells Counted 100
[2020-01-19 21:56] LABS: Neutrophils Absolute Manual 9804 /uL (3000-5900)
[2020-01-19 21:57] LABS: RBC Morphology Normal Morphology
--- NOTE | 2020-01-19 22:14 | DI.CT.S_ITS ---
PROCEDURE: CT KIDNEY URETER BLADDER (KUB) INDICATIONS: flank pain, hematuria, no UTI TECHNIQUE: Noncontrast 5 mm thick sections acquired from the diaphragms to the symphysis. 5 mm thick coronal and sagittal reformats were then performed. For radiation dose reduction, the following was used: automated exposure control, adjustment of mA and/or kV according to patient size. COMPARISON: [facility], CT, KIDNEY/ URETER/BLADDER, 04/08/2017, 18:56. [facility], CT, KIDNEY/ URETER/BLADDER, 10/11/2016, 12:48. FINDINGS: Image quality: Excellent. Lung bases: Lung bases are clear. Heart size is normal. Urinary system: There is a 3 mm obstructing stone seen within the distal most left ureter at the ureterovesicular junction, as on series 2, image 80. There is minimal eft-sided hydroureter and hydronephrosis. No nonobstructing kidney stones are seen. No right-sided hydronephrosis. Both kidneys are normal in size. Bladder wall thickness is normal; no calcified bladder stones. Other solid organs: A prominent, fatty infiltrated liver can be seen. Gallbladder has been removed. Pancreas is normal in contours. Spleen is mildly enlarged, measuring 14 cm. There is a right adrenal nodule again seen, which measures 23 Hounsfield units on this precontrast study and measures 2.9 cm. No left adrenal nodules. Peritoneum and bowel: Within the central mesentery, there is diffuse fatty stranding seen. Unenhanced bowel loops demonstrate normal wall thickness and caliber. No free fluid or air. Nodes and vessels: Borderline prominent lymph nodes are seen within the central mesentery and within the retroperitoneum. Aorta and inferior vena cava are normal in caliber. Abdominal wall: No ventral hernias. Pelvis: No free pelvic fluid. No inguinal hernias or adenopathy. This patient is status post hysterectomy. No adnexal masses are seen. Bones: No suspicious bony lesions. No vertebral body compression fractures. IMPRESSION: 3 mm obstructing stone seen at the left ureterovesicular junction. Fatty stranding with borderline prominent lymph nodes can be seen within the central mesentery. Borderline prominent retroperitoneal lymph nodes are also seen. This is similar to 2017 and is nonspecific, although attributed to chronic inflammatory change. There is a growing right adrenal nodule seen, which cannot be defined as a benign, lipid rich adrenal adenoma on this study. Please consider a dedicated adrenal protocol MRI for further evaluation (assuming that there is no contraindication). Incidental note is made of: Prominent, fatty liver Cholecystectomy Mild splenomegaly Hysterectomy Note: No significant discrepancy from the preliminary report. Dictated by: Baljit Jordan M.D. on 01/20/2020 at 7:38 Approved by: Baljit Jordan M.D. on 01/20/2020 at 7:43
[2020-01-19] MEDS: OXYCODONE/APAP 5/325 PREPACK 1 BOTTLE MISC (23:08)
[2020-01-19 23:22] VITALS: BP 125/65; PULSE 74; RESP 18; O2SAT 100
== END 2020-01-19 23:22 | disposition home or self-care (01) ==
PROVIDERS: Emergency Provider Emergency Medicine; PCP Internal Medicine
DX: N20.1 Calculus of ureter (principal); R30.0 Dysuria; R10.2 Pelvic and perineal pain; R31.9 Hematuria, unspecified
CPT/HCPCS: 36415; 74176; 80053; 81003; 81015; 82009; 82962; 83001; 83036; 83605; 83690; 84145; 85007; 85025; 87086; 99281; 99284

== ENCOUNTER → 2020-05-26 15:30 | Outpatient (CLI) | payer OTHER, MEDICAID, SELFPAY ==
[2020-05-26] MEDS: COVID-19 VACC #1, MRNA(MOD) 100 MCG/0.5 ML VIAL IM (15:38)
== END ==
PROVIDERS: PCP Internal Medicine; Visit Provider Internal Medicine
DX: Z23 Encounter for immunization (principal)
CPT/HCPCS: 0011A; 91301

== ENCOUNTER → 2020-06-23 15:49 | Outpatient (CLI) | payer OTHER, MEDICAID, SELFPAY ==
[2020-06-23] MEDS: COVID-19 VACC #2, MRNA(MOD) 100 MCG/0.5 ML VIAL IM (16:01)
== END ==
PROVIDERS: PCP Internal Medicine; Visit Provider Internal Medicine
DX: Z23 Encounter for immunization (principal)
CPT/HCPCS: 0012A; 91301

== ENCOUNTER → 2020-07-03 07:03 | Outpatient (CLI) | payer OTHER, MEDICAID, SELFPAY ==
[2020-07-03 08:22] LABS: Hemoglobin A1C% w Est Avg Glu 10.4 % (4.0-6.0)
[2020-07-03 08:49] LABS: Alanine Aminotransferase 25 IU/L (<35); Albumin 3.7 g/dL (3.5-5.0); Albumin Globulin Ratio 1.2 (1.0-2.8); Alkaline Phosphatase 80 U/L (38-126); Aspartate Aminotransferase 19 IU/L (14-36); BUN Creatinine Ratio 23.5 (6-22); Bilirubin Total 0.3 mg/dL (0.2-1.3); Blood Urea Nitrogen 12 mg/dL (7-17); Carbon Dioxide 28 mmol/L (22-32); Chloride 100 mmol/L (98-107); Cholesterol 167 mg/dL (140-199); Estimated Glomerular Filt Rate > 60.0 mL/min (>60); Glucose 301 mg/dL (70-100); HDL Cholesterol 17 mg/dL (40-60); Sodium 135 mmol/L (137-145); Total Protein 6.7 g/dL (6.3-8.2)
[2020-07-03 08:50] LABS: HEMOLYSIS < 15 (0-50)
[2020-07-03 09:01] LABS: Triglycerides 1070 mg/dL (35-150)
[2020-07-03 10:00] LABS: LDL Cholesterol Direct < 30 mg/dL (<100)
== END ==
PROVIDERS: PCP Internal Medicine; Referring Provider Internal Medicine; Visit Provider Internal Medicine
DX: E11.65 Type 2 diabetes mellitus with hyperglycemia (principal); E78.1 Pure hyperglyceridemia; Z79.4 Long term (current) use of insulin
CPT/HCPCS: 36415; 80053; 80061; 83036; 83721

== ENCOUNTER 2020-11-26 15:55 | Emergency (ER) | payer OTHER, MEDICAID, SELFPAY ==
[2020-11-26 16:00] VITALS: BP 165/89; PULSE 110; RESP 22; TEMP 36.6; O2SAT 97
[2020-11-26 16:35] LABS: Add Manual Diff / Slide Review NO; Basophils Absolute Auto 300 /uL (0-100); Basophils Percent Auto 1.7 % (0-2); Eosinophils Absolute Auto 200 /uL (0-450); Eosinophils Percent Auto 1.2 % (2-4); Hematocrit 43.9 % (36-46); Hemoglobin 15.1 g/dL (12.0-16.0); Lymphocytes Absolute Auto 2800 /uL (1100-4500); Lymphocytes Percent Auto 18.3 % (25-40); Mean Corpuscular HGB Conc 34.5 % (30-36); Mean Corpuscular Hemoglobin 30.3 PG (26-34); Mean Corpuscular Volume 87.9 fL (80-100); Monocytes Absolute Auto 800 /uL (0-900); Monocytes Percent Auto 5.2 % (3-14); Neutrophils Absolute Auto 11100 /uL (1500-7000); Neutrophils Percent Auto 73.6 % (50-75); Platelet Count 289 X10^3/uL (150-400); Red Blood Cell Count 4.99 X10^6/uL (4.0-5.2); Red Cell Distribution Width 14.7 % (11.6-14.8); White Blood Cell Count 15.1 X10^3/uL (4.5-11.0)
[2020-11-26 16:38] LABS: Alanine Aminotransferase 18 IU/L (<35); Albumin 4.1 g/dL (3.5-5.0); Albumin Globulin Ratio 1.2 (1.0-2.8); Alkaline Phosphatase 72 U/L (38-126); Aspartate Aminotransferase 20 IU/L (14-36); BUN Creatinine Ratio 29.7 (6-22); Bilirubin Total 0.7 mg/dL (0.2-1.3); Blood Urea Nitrogen 11 mg/dL (7-17); Calcium 9.2 mg/dL (8.4-10.2); Carbon Dioxide 28 mmol/L (22-32); Chloride 99 mmol/L (98-107); Estimated Glomerular Filt Rate > 60.0 mL/min (>60); Globulin 3.3 g/dL (1.7-4.1); Glucose 294 mg/dL (70-100); Lipase 65 U/L (23-300); Sodium 135 mmol/L (137-145); Total Protein 7.4 g/dL (6.3-8.2)
[2020-11-26 16:39] LABS: HEMOLYSIS 70 (0-50)
[2020-11-26] MEDS: SODIUM CHLORIDE 0.9% 1,000 ML 1000 ML IV (16:47)
[2020-11-26 16:55] LABS: Procalcitonin 0.05 ng/mL (<0.5)
--- NOTE | 2020-11-26 18:06 | ED.SKABFB ---
HPI - Skin/Abscess/Foreign Bdy General Chief complaint: Skin/Abscess/Foreign Body Stated complaint: BOIL IN GROIN AREA NAUSEA Time Seen by Provider: 11/26/20 17:56 Source: patient Mode of arrival: Ambulatory History of Present Illness HPI narrative: Patient is a 45-year-old female who is here for evaluation of an abscess in her left inguinal area. Is been there for the past several days and has been worsening during this time. She has had multiple abscesses in the past. She has had them in her inguinal area and also under her armpits. She has had to have them drained in the past but has also been able to take care of some of them at home. This particular abscess she has been unable to drain at home. No fevers. No urinary symptoms. His quite tender to touch. Related Data Home Medications Medication Instructions Recorded Confirmed [place] 5/16 Inch units SQ HS #50 08/07/16 06/26/20 Resmed Aircurve 10 BIPAP #1 ea 06/16/18 06/26/20 magnesium citrate 125 mg capsule 375 mg PO BEDTIME cap 01/26/19 06/26/20 omeprazole 40 mg capsule,delayed 40 mg PO DAILY PRN cap 12/06/19 06/26/20 release Previous Rx's Medication Instructions Recorded cholecalciferol (vitamin D3) 50 1 tab PO QDAY #90 tab 02/29/16 mcg (2,000 unit) tablet (Vitamin D3) Lancets TRUPLUS #100 each 09/15/19 atorvastatin 40 mg tablet 40 mg PO DAILY #90 tab 12/13/19 glyburide 5 mg tablet 5 mg PO BID #180 tab 03/06/20 albuterol sulfate 2.5 mg CONTINUOUS NEBULIZATION Q6H 05/26/20 #15 ml pen needle, diabetic 31 gauge x #100 ea 05/26/2007/09 (Unifine Pentips Plus) albuterol sulfate 90 mcg/actuation 2 puff INHALATION Q4-6H PRN #18 06/26/20 aerosol inhaler (Ventolin HFA) gram clonazepam 1 mg tablet (Klonopin) 1 mg PO BID #180 tab 06/26/20 lisinopril 5 mg tablet (Zestril) 5 mg PO QDAY #90 tab 06/26/20 gemfibrozil 600 mg tablet 600 mg PO BID #60 tab 07/10/20 insulin glargine 100 unit/mL (3 See Rx Instructions .ROUTE 07/28/20 mL) subcutaneous pen (Lantus .COMPLEX #150 ml Solostar U-100 Insulin) fluconazole 150 mg tablet 150 mg PO Q3D #4 tab 11/23/20 Allergies Allergy/AdvReac Type Severity Reaction Status Date / Time cephalexin [CEPHALEXIN] Allergy Mild rash Verified 05/26/20 15:02 ibuprofen [From Motrin] Allergy Mild Verified 05/26/20 15:02 latex [LATEX] Allergy Mild unknown Verified 05/26/20 15:02 Review of Systems Constitutional Constitutional: Reports system reviewed and no additional complaints, except as documented Gastrointestinal Gastrointestinal: Reports as per HPI and Reports system reviewed and no additional complaints, except as documented Genitourinary Genitourinary: Reports system reviewed and no additional complaints, except as documented and Reports as per HPI Integumentary/Breasts Skin/Breast: Reports system reviewed and no additional complaints, except as documented Hematologic/Lymphatic On Anticoagulants: No Patient History Medical History Asthma Kidney stone Migraine headache without aura Mixed anxiety depressive disorder (03/31/15) Morbid obesity (08/15/15) Obstructive sleep apnea syndrome (03/31/15) Polycystic ovaries Rosacea Type 2 diabetes mellitus with other specified complication (03/16/15) Surgical History S/P hysterectomy S/P laparoscopic cholecystectomy S/P tonsillectomy and adenoidectomy S/P tubal ligation Family History Father Diabetes mellitus Mother Seizure Grandmother Coronary artery disease Social History marital status: details: harley España, lives in [place] household members: spouse lives independently: Yes caregiver/support person: No housing: house occupational status: employed Smoking Status: Current every day smoker quit status: not considering quitting alcohol intake: current substance use type: does not use Smoking Status: Current every day smoker tobacco type: cigarettes alcohol intake frequency: holidays/special occasions only Substance Use Type: does not use Exam Initial Vital Signs Initial Vital Signs: Vital Signs Temperature 97.9 F 11/26/20 16:00 Pulse Rate 110 H 11/26/20 16:00 Respiratory Rate 22 11/26/20 16:00 Blood Pressure 165/89 H 11/26/20 16:00 Pulse Oximetry 97 11/26/20 16:00 Const General: cooperative and healthy appearing Resp Effort & Inspection: normal respiratory effort Cardio Rate: tachycardic Skin Other: Patient does have a 3 cm x 1 cm area of redness in the left inguinal area. There is a very large area of induration surrounding this. The overlying skin does not appear to be cellulitic. There is no drainage. Neuro General: patient alert, patient awake and moves all extremities Extrem General: normal to inspection and capillary refill normal Psych Appearance: grossly normal and well kempt Procedures Abscess I/D I&D #1: Site: other (Inguinal area) Side (if applicable): left Local Anesthetic: lidocaine 1% and with bicarb Amount of anesthesia used (mL): 5 Technique: incised with #11 blade Irrigation: No Packing used?: iodoform Course Orders Ordered: ED Orders 11/26/20 16:20 Complete Blood Count AUTO DIFF Stat Comprehensive Metabolic Panel Stat Lactate (Lactic Acid) Stat Lipase Stat Procalcitonin Stat 11/26/20 16:43 Blood Culture Stat Discontinued Medications Sodium Chloride (Normal Saline 0.9%) 1,000 mls @ 1,000 mls/hr IV BOLUS ONE Stop: 11/26/20 17:26 Last Infusion: 11/26/20 18:24 Dose: 0 mls/hr Documented by: Admin: 11/26/20 16:47 Dose: 1,000 mls/hr Documented by: ROMAINE Lidocaine/Sodium Bicarbonate (Lido 1%/Sod Bicarb 8.4% (10ml) 10 Ml Syringe) 10 ml INJ NOW ONE Stop: 11/26/20 18:07 Last Admin: 11/26/20 18:23 Dose: 10 ml Documented by: ROMAINE Vital Signs Vital signs: Vital Signs - 8 hr 11/26/20 16:00 Temperature 97.9 F Pulse Rate 110 H Respiratory Rate 22 Blood Pressure 165/89 H Pulse Oximetry 97 MDM - Skin/Abscess/Foreign Bdy Lab Data Result diagrams: 11/26/20 16:20 11/26/20 16:20 Labs: Lab Results 11/26/20 11/26/20 11/26/20 Range/Units 16:20 16:20 16:20 WBC 15.1 H (4.5-11.0) X10^3/uL RBC 4.99 (4.0-5.2) X10^6/uL Hgb 15.1 (12.0-16.0) g/dL Hct 43.9 (36-46) % MCV 87.9 (80-100) fL MCH 30.3 (26-34) PG MCHC 34.5 (30-36) % RDW 14.7 (11.6-14.8) % Plt Count 289 (150-400) X10^3/uL Neut % (Auto) 73.6 (50-75) % Lymph % (Auto) 18.3 L (25-40) % Dickinson % (Auto) 5.2 (3-14) % Eos % (Auto) 1.2 L (2-4) % Baso % (Auto) 1.7 (0-2) % Neut # (Auto) 11045 H (9260-1208) /uL Lymph # (Auto) 2800 (5268-3945) /uL Dickinson # (Auto) 800 (0-900) /uL Eos # (Auto) 200 (0-450) /uL Baso # (Auto) 300 H (0-100) /uL Sodium 135 L (137-145) mmol/L Potassium 4.0 (3.4-5.1) mmol/L Chloride 99 (98-107) mmol/L Carbon Dioxide 28 (22-32) mmol/L BUN 11 (7-17) mg/dL Creatinine 0.37 L (0.52-1.04) mg/dL Estimated GFR > 60.0 (>60) mL/min BUN/Creatinine Ratio 29.7 H (6-22) Glucose 294 H (70-100) mg/dL Lactate 1.0 (0.7-2.1) mmol/L Calcium 9.2 (8.4-10.2) mg/dL Total Bilirubin 0.7 (0.2-1.3) mg/dL AST 20 (14-36) IU/L ALT 18 (<35) IU/L Alkaline Phosphatase 72 (38-126) U/L Total Protein 7.4 (6.3-8.2) g/dL Albumin 4.1 (3.5-5.0) g/dL Globulin 3.3 (1.7-4.1) g/dL Albumin/Globulin Ratio 1.2 (1.0-2.8) Lipase 65 (23-300) U/L Procalcitonin 0.05 (<0.5) ng/mL Point of Care Testing Test Results Negative Urine Dip Bedside Urine Glucose 1000 mg/dl Bedside Urine Bilirubin - Negative Bedside Urine Ketone +++ 80 Urine Specific [place] 1.015 Bedside Urine Occult Blood - Negative Bedside Urine pH 6.5 Bedside Urine Protein +/- 15 Bedside Urine Urobilinogen +/- 1mg Bedside Urine Nitrite - Negative Bedside Urine Leukocytes - Negative Esterase MDM Narrative Medical decision making narrative: Patient is non toxic appearing. Was tachycardic but this is most likely because of the pain that she was in. I was able to drain a significant amount of purulent material from the left inguinal area. Loculations were broken up with a CTA. There is minimal overlying skin redness except for the area where the abscess is easily palpable. No indication for antibiotics because of this. A packing was placed because of the location of the wound to keep the incision open. Patient was given care instructions and return precautions. She expressed understanding and agreement. Discharge Plan Departure Patient Disposition: Home Clinical Impression: Abscess Instructions: DI for Skin Abscess Activity Restrictions/Additional Instructions: There was packing placed in the area. Please leave this in for the next 48 hours and then remove it. You can shower like normal. Expect some drainage from the area. Return to the emergency department for any new or worsening symptoms Prescriptions: No Action cholecalciferol (vitamin D3) [Vitamin D3] 2,000 UNIT tablet 1 tab PO QDAY Qty: 90 RF: 3 [place] 5/16 Inch SQ HS Qty: 50 RF: 11 (DME) Lancets TRUPLUS 0 .Route .MEDSUPPLY Qty: 100 RF: 2 atorvastatin 40 mg tablet 40 mg PO DAILY Qty: 90 RF: 3 glyburide 5 mg tablet 5 mg PO BID Qty: 180 RF: 1 Ventolin HFA 90 mcg/actuation HFA aerosol inhaler 2 puff INHALATION Q4-6H PRN (Reason: shortness of breath) Qty: 18 RF: 11 clonazepam [Klonopin] 1 mg tablet 1 mg PO BID Qty: 180 RF: 3 lisinopril [Zestril] 5 mg tablet 5 mg PO QDAY Qty: 90 RF: 3 gemfibrozil 600 mg tablet 600 mg PO BID Qty: 60 RF: 5 Lantus Solostar U-100 Insulin 100 unit/mL (3 mL) insulin pen See Rx Instructions .ROUTE .COMPLEX Qty: 150 RF: 8 fluconazole 150 mg tablet 150 mg PO Q3D Qty: 4 RF: 1 albuterol sulfate 2.5 mg /3 mL (0.083 %) solution for nebulization 2.5 mg continuous nebulization Q6H Qty: 15 RF: 3 (DME) pen needle, diabetic [Unifine Pentips Plus] 31 gauge x 5/16 needle See Rx Instructions .ROUTE .MEDSUPPLY Qty: 100 RF: 3 magnesium citrate 125 mg capsule 375 mg PO BEDTIME RF: 0 omeprazole 40 mg capsule,delayed release(DR/EC) 40 mg PO DAILY PRNRF: 0 (DME) Resmed Aircurve 10 BIPAP Qty: 1 RF: 0 Referrals: Vic Brothers MD [Primary Care Provider] -
[2020-11-26] MEDS: LIDO 1%/SOD BICARB 8.4% (10ML) 10 ML SYRINGE INJ (18:23)
== END 2020-11-26 20:07 | disposition home or self-care (01) ==
PROVIDERS: Emergency Medicine; Emergency Provider Emergency Medicine; PCP Internal Medicine
DX: L02.412 Cutaneous abscess of left axilla (principal); L02.214 Cutaneous abscess of groin; R00.0 Tachycardia, unspecified
CPT/HCPCS: 10060; 36415; 80053; 81003; 81025; 83605; 83690; 84145; 85025; 87040; 96360; 96361; 99284

== ENCOUNTER 2020-11-28 15:50 | Emergency (ER) | payer OTHER, MEDICAID, SELFPAY ==
--- NOTE | 2020-11-28 17:01 | PC.NURSE ---
Pt left prior to triage assessment at 1600.
== END 2020-11-28 16:59 | disposition left against medical advice (07) ==
PROVIDERS: Emergency Provider Emergency Medicine; PCP Internal Medicine

== ENCOUNTER → 2021-04-26 07:18 | Outpatient (CLI) | payer OTHER, MEDICAID, SELFPAY ==
[2021-04-26 08:35] LABS: Albumin 3.9 g/dL (3.5-5.0); BUN Creatinine Ratio 21.2 (6-22); Blood Urea Nitrogen 11 mg/dL (7-17); Calcium 9.1 mg/dL (8.4-10.2); Carbon Dioxide 26 mmol/L (22-32); Chloride 104 mmol/L (98-107); Cholesterol 152 mg/dL (140-199); Estimated Glomerular Filt Rate > 60.0 mL/min (>60); Glucose 268 mg/dL (70-100); HDL Cholesterol 19 mg/dL (40-60); HEMOLYSIS 16 (0-50); Phosphorous 3.6 mg/dL (2.5-4.5); Sodium 136 mmol/L (137-145)
[2021-04-26 08:44] LABS: Triglycerides 658 mg/dL (35-150)
[2021-04-26 08:58] LABS: Creatinine Urine Random 205.9 mg/dL
[2021-04-26 09:03] LABS: Microalbumi Creatinin Ratio Ur 47.5 ug/mg CR (<30); Microalbumin Urine Random 9.8 mg/dL (0-1.6)
[2021-04-26 09:21] LABS: Vitamin B12 423 pg/mL (239-931)
[2021-04-27 05:36] LABS: C Peptide 10.1 ng/mL (1.1-4.4)
== END ==
PROVIDERS: PCP Internal Medicine; Referring Provider Student in an Organized Health Care Education/Training Program; Visit Provider Student in an Organized Health Care Education/Training Program
DX: E11.65 Type 2 diabetes mellitus with hyperglycemia; Z79.4 Long term (current) use of insulin
CPT/HCPCS: 36415; 80061; 80069; 82043; 82570; 82607; 84681; 86337; 86341

== ENCOUNTER 2021-05-15 19:14 | Emergency (ER) | payer OTHER, MEDICAID, SELFPAY ==
[2021-05-15 19:19] VITALS: BP 156/81; PULSE 102; RESP 18; TEMP 36.8; O2SAT 95; BMI 49.4
--- NOTE | 2021-05-15 19:43 | DI.CT.S_ITS ---
PROCEDURE: CT ABDOMEN PELVIS W CON INDICATIONS: vaginal abscess TECHNIQUE: After the administration of IV contrast, axial sections were acquired from the lung bases to the pubic symphysis. Coronal and sagittal reformats were performed. For radiation dose reduction, the following was used: automated exposure control, adjustment of mA and/or kV according to patient size. COMPARISON: [facility], CT, CT KIDNEY URETER BLADDER (KUB), 01/19/2020, 22:15. None. FINDINGS: Image quality: Excellent. Lung bases: Unremarkable. Heart: Heart is normal in size. ABDOMEN: Liver: There is a small region of hypoattenuation along the gallbladder fossa suggestive of focal fatty infiltration. Gallbladder: Surgically absent. Biliary ducts: No biliary ductal dilatation. Pancreas: Unremarkable. Spleen: Normal in size. Adrenal Glands: There is an indeterminate right adrenal nodule measuring up to 3.1 x 2.8 cm which appears slightly increased from 3.0 x 2.4 cm previously. Kidneys and Ureters: No hydronephrosis. Stomach and Bowel: Stomach, small bowel loops, and colon are normal in caliber and wall thickness. The appendix is normal in appearance. There are few colonic diverticula without acute diverticulitis. Peritoneum: No abnormal intraperitoneal fluid. No free air. Ventral Wall: No hernia. Abdominal Nodes: No retroperitoneal or mesenteric adenopathy by size criteria. Vessels: Aorta and inferior vena cava are normal in size. PELVIS: Pelvic Organs: The uterus is surgically absent. There are bilateral surgical clips in the adnexa. The ovaries are prominent size, measuring up to 4.5 x 3.8 cm in transverse dimension on the right and 3.8 x 3.7 cm on the left. Findings are similar to the prior study. There is thickening of the vaginal wall bilaterally with associated mild fat stranding along the labia. No discrete abscess collection identified. Bladder: Unremarkable. Pelvic Nodes: No enlarged lymph nodes. Miscellaneous: No inguinal hernias are seen. Bones: Visualized osseous structures demonstrate no suspicious focal lesions. IMPRESSION: 1. Mild vaginal wall thickening with associated minimal fat stranding suggestive of an infectious or inflammatory process. No discrete abscess collection identified. 2. Indeterminate right adrenal nodule appears slightly increased in size compared to the prior study. The findings are nonspecific and if indicated further evaluation may be obtained with an adrenal protocol CT or MRI. Dictated by: eDan Lowry M.D. on 05/15/2021 at 21:25 Approved by: Dean Lowry M.D. on 05/15/2021 at 21:30
--- NOTE | 2021-05-15 19:44 | ED_ITS ---
HPI - Female Genitourinary <Alonzo Dixon PA-C - Last Filed: 05/15/21 19:48> General Chief complaint: Urogenital-Female Stated complaint: PEEING SUGAR BUSTED OPEN DOWN THERE Time Seen by Provider: 05/15/21 19:17 Source: patient Mode of arrival: Ambulatory History of Present Illness HPI Narrative: Patient is a 46-year-old female who presents to the ED complaining of pain on the outside of her vagina. She reports that she has been poorly controlled diabetic for the past 6 months and has elevated blood sugars. She has been having extreme pain over the last few days along the outside of her vagina she was concerned about a yeast infection and was placed on Diflucan as a preventative. She denies any vaginal discharge she has extreme pain with wiping she denies any hematuria or dysuria. No reported fever nausea vomiting or diarrhea. Related Data Home Medications Medication Instructions Recorded Confirmed [place] 5/16 Inch units SQ HS #50 08/07/16 12/04/20 Resmed Aircurve 10 BIPAP #1 ea 06/16/18 12/04/20 magnesium citrate 125 mg capsule 375 mg PO BEDTIME cap 01/26/19 12/04/20 omeprazole 40 mg capsule,delayed 40 mg PO DAILY PRN cap 12/06/19 12/04/20 release liraglutide 0.6 mg/0.1 mL (18 mg/3 1.2 mg SUBCUT DAILY ml 12/04/20 12/04/20 mL) subcutaneous pen injector (Victoza 2-Ziggy) Previous Rx's Medication Instructions Recorded cholecalciferol (vitamin D3) 50 1 tab PO QDAY #90 tab 02/29/16 mcg (2,000 unit) tablet (Vitamin D3) Lancets TRUPLUS #100 each 09/15/19 atorvastatin 40 mg tablet 40 mg PO DAILY #90 tab 12/13/19 glyburide 5 mg tablet 5 mg PO BID #180 tab 03/06/20 albuterol sulfate 2.5 mg (3 mL) CONTINUOUS 05/26/20 NEBULIZATION Q6H #15 ml pen needle, diabetic 31 gauge x #100 ea 05/26/20 5/16 (Unifine Pentips Plus) albuterol sulfate 90 mcg/actuation 2 puff INHALATION Q4-6H PRN #18 06/26/20 aerosol inhaler (Ventolin HFA) gram lisinopril 5 mg tablet (Zestril) 5 mg PO QDAY #90 tab 06/26/20 gemfibrozil 600 mg tablet 600 mg PO BID #60 tab 07/10/20 sulfamethoxazole 800 1 tab PO BID #20 tab 12/01/20 mg-trimethoprim 160 mg tablet clonazepam 1 mg tablet (Klonopin) 1 mg PO BID #180 tab 01/01/21 fluconazole 150 mg tablet 150 mg PO Q3D #4 tab 03/19/21 valacyclovir 1 gram tablet 1,000 mg PO BID #20 tab 05/15/21 Allergies Allergy/AdvReac Type Severity Reaction Status Date / Time cephalexin [CEPHALEXIN] Allergy Mild rash Verified 05/15/21 19:36 ibuprofen [From Motrin] Allergy Mild Verified 05/15/21 19:36 latex [LATEX] Allergy Mild unknown Verified 05/15/21 19:36 Review of Systems <Alonzo Dixon PA-C - Last Filed: 05/15/21 19:48> Review of Systems ROS Unobtainable: All systems reviewed & are unremarkable except as noted in HPI and below Constitutional Constitutional: Denies chills, Denies fatigue, Denies fever(s), Denies frequent falls, Denies lethargy and Denies weakness Eyes Eyes: Denies change in vision, Denies eye discharge, Denies irritation and Denies loss of vision ENT Ears, Nose, Mouth, and Throat: Denies change in voice, Denies dizziness, Denies neck pain, Denies sore throat and Denies throat swelling Cardiovascular Cardiovascular: Denies chest pain, Denies irregular heart rhythm, Denies lightheadedness, Denies palpitations, Denies dyspnea, Denies dyspnea on exertion and Denies orthopnea Respiratory Respiratory: Denies cough, Denies dyspnea, Denies dyspnea on exertion and Denies wheezing Gastrointestinal Gastrointestinal: Denies abdominal pain, Denies change in bowel habits, Denies diarrhea, Denies nausea and Denies vomiting Genitourinary Genitourinary: Denies hematuria, Reports pelvic pain, Denies flank pain, Denies urinary incontinence and Denies urinary urgency Musculoskeletal Musculoskeletal: Denies back pain, Denies muscle weakness, Denies neck pain, Denies numbness and Denies tingling Integumentary/Breasts Skin/Breast: Denies pruritus, Denies erythema, Denies rash and Denies wounds Neurologic Neurologic: Denies behavioral changes, Denies confusion, Denies dizziness, Denies frequent falls, Denies loss of vision, Denies numbness, Denies tingling and Denies weakness Psychiatric Psychiatric: Denies anxiety, Denies behavioral changes, Denies confusion, Denies depression, Denies homicidal ideation and Denies suicidal ideation Endocrine Endocrine: Denies fatigue, Denies flushing and Denies palpitations Hematologic/Lymphatic Hematologic/Lymphatic: Denies easy bruising Allergic/Immunologic Allergic/Immunologic: Denies urticaria, Denies throat swelling and Denies wheezing Patient History <Alonzo Dixon PA-C - Last Filed: 05/15/21 19:48> Medical History Asthma Kidney stone Migraine headache without aura Mixed anxiety depressive disorder (03/31/15) Morbid obesity (08/15/15) Obstructive sleep apnea syndrome (03/31/15) Polycystic ovaries Rosacea Type 2 diabetes mellitus with other specified complication (03/16/15) Surgical History S/P hysterectomy S/P laparoscopic cholecystectomy S/P tonsillectomy and adenoidectomy S/P tubal ligation Family History Father Diabetes mellitus Mother Seizure Grandmother Coronary artery disease tobacco type: cigarettes alcohol intake frequency: holidays/special occasions only Substance Use Type: does not use Exam <Alonzo Dixon PA-C - Last Filed: 05/15/21 19:48> Initial Vital Signs Initial Vital Signs: Vital Signs Temperature 98.2 F 05/15/21 19:19 Pulse Rate 102 H 05/15/21 19:19 Respiratory Rate 18 05/15/21 19:19 Blood Pressure 156/81 H 05/15/21 19:19 Pulse Oximetry 95 05/15/21 19:19 Const General: cooperative, healthy appearing, comfortable and well developed Nutritional Appearance: average body habitus Orientation: Orientation [facility] Head: normal to inspection, normocephalic and atraumatic Ears: hearing grossly normal bilaterally Nose: external nose normal Face and sinus: normal facial exam GI Inspection: normal to inspection Palpation: soft and no hepatosplenomegaly Percussion: normal to percussion Auscultation: normal bowel sounds External Female Exam: normal external appearance and externally tender Skin General: no rashes or lesions noted <Tyrese Sanches DO - Last Filed: 05/16/21 02:33> Initial Vital Signs Initial Vital Signs: Vital Signs Temperature 98.2 F 05/15/21 19:19 Pulse Rate 102 H 05/15/21 19:19 Respiratory Rate 18 05/15/21 19:19 Blood Pressure 156/81 H 05/15/21 19:19 Pulse Oximetry 95 05/15/21 19:19 Other: PELVIC: Exam performed with female nursing cnc set up operator at the bedside and patient permission. There are a few painful ulcerations noted on the right labia, no induration, fluctuance or obvious drainage. Speculum exam notes scant whitish discharge from closed cervical os, no obvious irritation or erythema Course <Alonzo Dixon PA-C - Last Filed: 05/15/21 19:48> Orders Ordered: Discontinued Medications Hydrocodone Bitart/Acetaminophen (Hydrocodone/Acet 5/325 Prepack) 1 bottle MISC SEEINSTR ONE Stop: 05/15/21 22:12 Last Admin: 05/15/21 22:36 Dose: 1 bottle Documented by: LUCINDA Valacyclovir HCl (Valacyclovir 500 Mg Tablet) 1,000 mg PO NOW ONE Stop: 05/15/21 22:12 Last Admin: 05/15/21 22:36 Dose: 1,000 mg Documented by: LUCINDA Vital Signs Vital signs: Vital Signs - 8 hr 05/15/21 19:19 05/15/21 22:35 Temperature 98.2 F Pulse Rate 102 H 82 Respiratory Rate 18 18 Blood Pressure 156/81 H 136/76 Pulse Oximetry 95 97 <Tyrese Sanches DO - Last Filed: 05/16/21 02:33> Orders Ordered: Discontinued Medications Hydrocodone Bitart/Acetaminophen (Hydrocodone/Acet 5/325 Prepack) 1 bottle MISC SEEINSTR ONE Stop: 05/15/21 22:12 Last Admin: 05/15/21 22:36 Dose: 1 bottle Documented by: LUCINDA Valacyclovir HCl (Valacyclovir 500 Mg Tablet) 1,000 mg PO NOW ONE Stop: 05/15/21 22:12 Last Admin: 05/15/21 22:36 Dose: 1,000 mg Documented by: HGTERENCEN Vital Signs Vital signs: Vital Signs - 8 hr 05/15/21 19:19 05/15/21 22:35 Temperature 98.2 F Pulse Rate 102 H 82 Respiratory Rate 18 18 Blood Pressure 156/81 H 136/76 Pulse Oximetry 95 97 MDM - Female Genitourinary <Alonzo Dixon PA-C - Last Filed: 05/15/21 19:48> Lab Data Result diagrams: 05/15/21 20:00 05/15/21 20:00 Labs: Lab Results 05/15/21 05/15/21 05/15/21 Range/Units 20:00 20:00 20:00 WBC 12.0 H (4.5-11.0) X10^3/uL RBC 4.98 (4.0-5.2) X10^6/uL Hgb 15.4 (12.0-16.0) g/dL Hct 43.8 (36-46) % MCV 88.0 (80-100) fL MCH 30.9 (26-34) PG MCHC 35.1 (30-36) % RDW 14.3 (11.6-14.8) % Plt Count 296 (150-400) X10^3/uL Neut % (Auto) 67.8 (50-75) % Lymph % (Auto) 25.6 (25-40) % Larue % (Auto) 4.2 (3-14) % Eos % (Auto) 2.0 (2-4) % Baso % (Auto) 0.4 (0-2) % Neut # (Auto) 8100 H (3602-8483) /uL Lymph # (Auto) 3100 (1984-4441) /uL Larue # (Auto) 500 (0-900) /uL Eos # (Auto) 200 (0-450) /uL Baso # (Auto) 0 (0-100) /uL Sodium 135 L (137-145) mmol/L Potassium 3.9 (3.4-5.1) mmol/L Chloride 102 (98-107) mmol/L Carbon Dioxide 25 (22-32) mmol/L BUN 15 (7-17) mg/dL Creatinine 0.73 (0.52-1.04) mg/dL Estimated GFR > 60.0 (>60) mL/min BUN/Creatinine Ratio 20.5 (6-22) Glucose 318 H (70-100) mg/dL Lactate 1.7 (0.7-2.1) mmol/L Calcium 9.1 (8.4-10.2) mg/dL Total Bilirubin 0.5 (0.2-1.3) mg/dL AST 20 (14-36) IU/L ALT 26 (<35) IU/L Alkaline Phosphatase 78 (38-126) U/L Total Protein 7.2 (6.3-8.2) g/dL Albumin 4.2 (3.5-5.0) g/dL Globulin 3.0 (1.7-4.1) g/dL Albumin/Globulin Ratio 1.4 (1.0-2.8) Procalcitonin 0.05 (<0.5) ng/mL Urine Dip Bedside Urine Glucose 1000 mg/dl Bedside Urine Bilirubin - Negative Bedside Urine Ketone +/- 5 Urine Specific [place] 1.010 Bedside Urine Occult Blood - Negative Bedside Urine pH 7.0 Bedside Urine Protein - Negative Bedside Urine Urobilinogen - Negative Bedside Urine Nitrite - Negative Bedside Urine Leukocytes - Negative Esterase <Tyrese Sanches, DO - Last Filed: 05/16/21 02:33> Lab Data Labs: Lab Results 05/15/21 05/15/21 05/15/21 Range/Units 20:00 20:00 20:00 WBC 12.0 H (4.5-11.0) X10^3/uL RBC 4.98 (4.0-5.2) X10^6/uL Hgb 15.4 (12.0-16.0) g/dL Hct 43.8 (36-46) % MCV 88.0 (80-100) fL MCH 30.9 (26-34) PG MCHC 35.1 (30-36) % RDW 14.3 (11.6-14.8) % Plt Count 296 (150-400) X10^3/uL Neut % (Auto) 67.8 (50-75) % Lymph % (Auto) 25.6 (25-40) % Larue % (Auto) 4.2 (3-14) % Eos % (Auto) 2.0 (2-4) % Baso % (Auto) 0.4 (0-2) % Neut # (Auto) 8100 H (5978-5355) /uL Lymph # (Auto) 3100 (8793-8844) /uL Larue # (Auto) 500 (0-900) /uL Eos # (Auto) 200 (0-450) /uL Baso # (Auto) 0 (0-100) /uL Sodium 135 L (137-145) mmol/L Potassium 3.9 (3.4-5.1) mmol/L Chloride 102 (98-107) mmol/L Carbon Dioxide 25 (22-32) mmol/L BUN 15 (7-17) mg/dL Creatinine 0.73 (0.52-1.04) mg/dL Estimated GFR > 60.0 (>60) mL/min BUN/Creatinine Ratio 20.5 (6-22) Glucose 318 H (70-100) mg/dL Lactate 1.7 (0.7-2.1) mmol/L Calcium 9.1 (8.4-10.2) mg/dL Total Bilirubin 0.5 (0.2-1.3) mg/dL AST 20 (14-36) IU/L ALT 26 (<35) IU/L Alkaline Phosphatase 78 (38-126) U/L Total Protein 7.2 (6.3-8.2) g/dL Albumin 4.2 (3.5-5.0) g/dL Globulin 3.0 (1.7-4.1) g/dL Albumin/Globulin Ratio 1.4 (1.0-2.8) Procalcitonin 0.05 (<0.5) ng/mL Urine Dip Bedside Urine Glucose 1000 mg/dl Bedside Urine Bilirubin - Negative Bedside Urine Ketone +/- 5 Urine Specific [place] 1.010 Bedside Urine Occult Blood - Negative Bedside Urine pH 7.0 Bedside Urine Protein - Negative Bedside Urine Urobilinogen - Negative Bedside Urine Nitrite - Negative Bedside Urine Leukocytes - Negative Esterase Imaging Data CT scan - abdomen/pelvis: Radiologist's Impression: [address] [address] [address] Scan Report Signed Patient: Rosita Dee MR#: [id number] : 1975 Acct:[id number] Age/Sex: 46 / F Date of Service: 05/15/21 Loc: ED Accession Number: [id number] ?? Procedure: CT abdomen pelvis w con Ordering Provider: Alonzo Dixon P.A-C PROCEDURE:? CT ABDOMEN PELVIS W CON ? INDICATIONS:? vaginal abscess ? TECHNIQUE:? After the administration of IV contrast, axial sections were acquired from the lung bases to the pubic symphysis.? Coronal and sagittal reformats were performed.? For radiation dose reduction, the following was used:? automated exposure control, adjustment of mA and/or kV according to patient size. ? COMPARISON:? [facility], CT, CT KIDNEY URETER BLADDER (KUB), 01/19/2020, 22:15.? None. ? FINDINGS:? Image quality:? Excellent.? ? Lung bases:? Unremarkable.? ? Heart:? Heart is normal in size. ? ? ABDOMEN: Liver:? There is a small region of hypoattenuation along the gallbladder fossa suggestive of focal fatty infiltration. Gallbladder:? Surgically absent. Biliary ducts:? No biliary ductal dilatation.? ? Pancreas:? Unremarkable.? ? Spleen:? Normal in size.? ? Adrenal Glands:? There is an indeterminate right adrenal nodule measuring up to 3.1 x 2.8 cm which appears slightly increased from 3.0 x 2.4 cm previously.? Kidneys and Ureters:? No hydronephrosis.? ? ? Stomach and Bowel:? Stomach, small bowel loops, and colon are normal in caliber and wall thickness.? The appendix is normal in appearance.? There are few colonic diverticula without acute diverticulitis.? Peritoneum:? No abnormal intraperitoneal fluid.? No free air.? ? Ventral Wall: ? No hernia.? Abdominal Nodes:? No retroperitoneal or mesenteric adenopathy by size criteria.? Vessels:? Aorta and inferior vena cava are normal in size.? ? PELVIS: Pelvic Organs:? The uterus is surgically absent.? There are bilateral surgical clips in the adnexa.? The ovaries are prominent size, measuring up to 4.5 x 3.8 cm in transverse dimension on the right and 3.8 x 3.7 cm on the left.? Findings are similar to the prior study.? There is thickening of the vaginal wall bilaterally with associated mild fat stranding along the labia.? No discrete abscess collection identified.? ? Bladder:? Unremarkable.? ? Pelvic Nodes: No enlarged lymph nodes.? Miscellaneous: No inguinal hernias are seen. ? ? ? Bones:? Visualized osseous structures demonstrate no suspicious focal lesions. ? IMPRESSION:? ? 1. Mild vaginal wall thickening with associated minimal fat stranding suggestive of an infectious or inflammatory process.? No discrete abscess collection identified. ? 2. Indeterminate right adrenal nodule appears slightly increased in size compared to the prior study.? The findings are nonspecific and if indicated further evaluation may be obtained with an adrenal protocol CT or MRI.? ? ? Dictated by: Dean Lowry M.D. on 05/15/2021 at 21:25 ? ? Approved by: Dean Lowry M.D. on 05/15/2021 at 21:30? Discharge Plan Departure Patient Disposition: Home Clinical Impression: Vaginal pain Instructions: Herpes Simplex Virus Testing Activity Restrictions/Additional Instructions: *You have been diagnosed with [vaginal pain. Your history and physical exam would suggest the possibility of a viral infection. We have initiated treatment and cultures are pending *What to do: *Please continue to take your regular medications as directed. [ x] New medication prescriptions sent to your pharmacy: [ [facility]] [ ] New medication written as a paper prescription [ ] No new medications given *Please follow up with your primary care provider in 2-3 days, call for an ap pointment. Let them know you were seen in the Emergency Department and that we ask that you be seen in follow up. We will electronically transmit a record of today's note if your PCP is in our system *If you do not have a primary care provider please contact the [facility] Resource line at [phone]. They will ask some questions about your medical history and help get you set up with a doctor in the community. *Return to Emergency Department if you should have any new, worsening or co ncerning symptoms, such as [fever greater than 101 F, shaking chills, worsening pain, persistent vomiting or other bothersome symptoms] Prescriptions: New valacyclovir 1 gram tablet 1,000 mg PO BID Qty: 20 0RF No Action cholecalciferol (vitamin D3) [Vitamin D3] 2,000 UNIT tablet 1 tab PO QDAY Qty: 90 3RF [place] 5/16 Inch SQ HS Qty: 50 11RF (DME) Lancets TRUPLUS 0 .Route .MEDSUPPLY Qty: 100 2RF Dose Instruction: As directed Rx Instructions: USE TO CHECK BLOOD SUGAR 4 TIMES A DAY. PT DUE FOR F/UP W/PCP PRIOR TO FUTURE FILLS. PLEASE CALL TO SCHED FUTURE APPT. THANK YOU. 09/15/19 atorvastatin 40 mg tablet 40 mg PO DAILY Qty: 90 3RF glyburide 5 mg tablet 5 mg PO BID Qty: 180 1RF Ventolin HFA 90 mcg/actuation HFA aerosol inhaler 2 puff INHALATION Q4-6H PRN (Reason: shortness of breath) Qty: 18 11RF lisinopril [Zestril] 5 mg tablet 5 mg PO QDAY Qty: 90 3RF gemfibrozil 600 mg tablet 600 mg PO BID Qty: 60 5RF clonazepam [Klonopin] 1 mg tablet 1 mg PO BID Qty: 180 3RF fluconazole 150 mg tablet 150 mg PO Q3D Qty: 4 1RF albuterol sulfate 2.5 mg /3 mL (0.083 %) solution for nebulization 2.5 mg continuous nebulization Q6H Qty: 15 3RF (DME) pen needle, diabetic [Unifine Pentips Plus] 31 gauge x 5/16 needle See Rx Instructions .ROUTE .MEDSUPPLY Qty: 100 3RF Rx Instructions: Use as directed for insulin shots. Victoza 2-Ziggy 0.6 mg/0.1 mL (18 mg/3 mL) pen injector 1.2 mg SUBCUT DAILY 0RF sulfamethoxazole-trimethoprim 800-160 mg tablet 1 tab PO BID Qty: 20 0RF magnesium citrate 125 mg capsule 375 mg PO BEDTIME 0RF omeprazole 40 mg capsule,delayed release(DR/EC) 40 mg PO DAILY PRN0RF (DME) Resmed Aircurve 10 BIPAP Qty: 1 0RF Dose Instruction: As directed Label Comments: Pressure: IPAP 20 EPAP 12 DME: [facility] Rx Instructions: As directed Referrals: Vic Brothers MD [Primary Care Provider] -
[2021-05-15 20:26] LABS: Add Manual Diff / Slide Review NO; Basophils Absolute Auto 0 /uL (0-100); Basophils Percent Auto 0.4 % (0-2); Eosinophils Absolute Auto 200 /uL (0-450); Hematocrit 43.8 % (36-46); Hemoglobin 15.4 g/dL (12.0-16.0); Lymphocytes Absolute Auto 3100 /uL (1100-4500); Lymphocytes Percent Auto 25.6 % (25-40); Mean Corpuscular HGB Conc 35.1 % (30-36); Mean Corpuscular Hemoglobin 30.9 PG (26-34); Monocytes Absolute Auto 500 /uL (0-900); Monocytes Percent Auto 4.2 % (3-14); Neutrophils Absolute Auto 8100 /uL (1500-7000); Neutrophils Percent Auto 67.8 % (50-75); Platelet Count 296 X10^3/uL (150-400); Red Blood Cell Count 4.98 X10^6/uL (4.0-5.2); Red Cell Distribution Width 14.3 % (11.6-14.8)
[2021-05-15 20:35] LABS: Lactate (Lactic Acid) 1.7 mmol/L (0.7-2.1)
[2021-05-15 20:36] LABS: Alanine Aminotransferase 26 IU/L (<35); Albumin 4.2 g/dL (3.5-5.0); Albumin Globulin Ratio 1.4 (1.0-2.8); Alkaline Phosphatase 78 U/L (38-126); Aspartate Aminotransferase 20 IU/L (14-36); BUN Creatinine Ratio 20.5 (6-22); Bilirubin Total 0.5 mg/dL (0.2-1.3); Blood Urea Nitrogen 15 mg/dL (7-17); Calcium 9.1 mg/dL (8.4-10.2); Carbon Dioxide 25 mmol/L (22-32); Chloride 102 mmol/L (98-107); Estimated Glomerular Filt Rate > 60.0 mL/min (>60); Glucose 318 mg/dL (70-100); HEMOLYSIS 24 (0-50); Potassium 3.9 mmol/L (3.4-5.1); Sodium 135 mmol/L (137-145); Total Protein 7.2 g/dL (6.3-8.2)
[2021-05-15 20:52] LABS: Procalcitonin 0.05 ng/mL (<0.5)
--- NOTE | 2021-05-15 22:10 | PC.NURSE ---
pt c/o sores on her perineum that are painful, pain increases with movement and are irritated with walking, pt is a diabetic and does not have her bs under control, she has also been being tx for a yeast infection
--- NOTE | 2021-05-15 22:13 | PC.NURSE ---
pelvic exam done per Dr Sanches and Rn assisted, specimens obtained and sent to lab, pt tolerated well
[2021-05-15 22:35] VITALS: BP 136/76; PULSE 82; RESP 18; O2SAT 97
[2021-05-15] MEDS: HYDROCODONE/ACET 5/325 PREPACK 1 BOTTLE MISC (22:36)
[2021-05-15] MEDS: valACYclovir 500 MG TABLET 1000 MG PO (22:36)
== END 2021-05-15 22:40 | disposition home or self-care (01) ==
PROVIDERS: Physician Assistant; Emergency Provider Emergency Medicine; PCP Internal Medicine
DX: R10.2 Pelvic and perineal pain (principal)
CPT/HCPCS: 36415; 74177; 80053; 81003; 83605; 84145; 85025; 87070; 87077; 87205; 87210; 87252; 99284; Q9967

== ENCOUNTER 2021-09-27 15:17 | Emergency (ER) | payer OTHER, MEDICAID, SELFPAY ==
[2021-09-27 15:38] VITALS: BP 144/72; PULSE 73; RESP 18; TEMP 36.9; O2SAT 98; BMI 52.7
--- NOTE | 2021-09-27 18:37 | DI.CT.S_ITS ---
PROCEDURE: CT KIDNEY URETER BLADDER (KUB) INDICATIONS: left flank pain x5 days TECHNIQUE: Axial sections were acquired from the lung bases to the pubic symphysis. Coronal and sagittal reformats were performed. For radiation dose reduction, the following was used: automated exposure control, adjustment of mA and/or kV according to patient size. COMPARISON: [facility], CT, CT ABDOMEN PELVIS W CON, 05/15/2021, 20:17. [facility], CT, KIDNEY/ URETER/BLADDER, 04/08/2017, 18:56. [facility], CT, CT KIDNEY URETER BLADDER (KUB), 01/19/2020, 22:15. FINDINGS: Image quality: Excellent. Lung bases: Unremarkable. Heart: No significant findings. URINARY: Right Kidney: No stones or hydronephrosis. Right Ureter: No hydroureter. Left Kidney: No stones or hydronephrosis. Left Ureter: No hydroureter. Bladder: Normal wall thickness. No stones. ABDOMEN: Liver: Unremarkable. Gallbladder: Removed. Biliary ducts: Unremarkable. Pancreas: Unremarkable. Spleen: Unremarkable. Adrenal Glands: A right adrenal nodule is seen that measures 2.9 cm and 28 Hounsfield units on this noncontrast study. Stomach and Bowel: Stomach, small bowel loops, and colon are unremarkable. Peritoneum: No abnormal intraperitoneal fluid. No free air. Ventral Wall: No hernia. Abdominal Nodes: No enlarged retroperitoneal or mesenteric lymph nodes. Vessels: Aorta and inferior vena cava are normal in size. PELVIS: Pelvic Organs: Prior hysterectomy. Sterilization clips are incidentally noted within the pelvis. Mild prominence of the ovaries is again seen. Pelvic Nodes: Unremarkable. Miscellaneous: No inguinal hernias are seen. Bones: Unremarkable. IMPRESSION: Negative for kidney stones or obstructive uropathy. Stable right adrenal nodule. Mildly prominent ovaries are again seen. Incidental note is made of: Cholecystectomy Hysterectomy Sterilization clips Dictated by: Baljit Jordan M.D. on 09/27/2021 at 18:47 Approved by: Baljit Jordan M.D. on 09/27/2021 at 18:51
--- NOTE | 2021-09-27 18:39 | ED_ITS ---
HPI - Female Genitourinary <Michelle Franco LARRY CAR OPERATOR - Last Filed: 09/27/21 20:10> General Chief complaint: Urogenital-Female Stated complaint: pain, bladder issues Time Seen by Provider: 09/27/21 17:59 Source: family Mode of arrival: Ambulatory History of Present Illness HPI Narrative: This is a 46-year-old female who has a history of obesity, type 2 diabetes, migraines, peripheral neuropathy, and kidney stone and she presents to the emergency department complaining of left-sided flank pain over the last five da ys without associated dysuria. She states it radiates to her groin, states it is very painful, states her blood sugars are under control, this morning her blood sugar was 160. She endorses nausea without vomiting, states that she is allergic to ibuprofen, denies thinking that this is a muscle or musculoskeletal problem as she states it is different than low back pain. Patient's primary care provider is Dr. Brothers. She denies any recent fever, chest pain, shortness of breath, dysuria, abnormal vaginal discharge, lightheadedness, dizziness or headache. Related Data Home Medications Medication Instructions Recorded Confirmed Ivins 5/16 Inch units SQ HS ##50 08/07/16 12/04/20 Resmed Aircurve 10 BIPAP #1 ea 06/16/18 12/04/20 magnesium citrate 125 mg capsule 375 mg PO BEDTIME 01/26/19 12/04/20 omeprazole 40 mg capsule,delayed 40 mg PO DAILY PRN 12/06/19 12/04/20 release liraglutide 0.6 mg/0.1 mL (18 mg/3 1.2 mg SUBCUT DAILY 12/04/20 12/04/20 mL) subcutaneous pen injector (Victoza 2-Ziggy) Previous Rx's Medication Instructions Recorded cholecalciferol (vitamin D3) 50 1 tab PO QDAY #90 tabs 02/29/16 mcg (2,000 unit) tablet (Vitamin D3) Lancets TRUPLUS #100 ea 09/15/19 atorvastatin 40 mg tablet 40 mg PO DAILY #90 tabs 12/13/19 albuterol sulfate 2.5 mg/3 mL 2.5 mg (3 mL) continuous 05/26/20 (0.083 %) solution for nebulization nebulization Q6H #15 mL lisinopril 5 mg tablet (Zestril) 5 mg PO QDAY #90 tabs 06/26/20 gemfibrozil 600 mg tablet 600 mg PO BID #60 tabs 07/10/20 sulfamethoxazole 800 1 tab PO BID #20 tabs 12/01/20 mg-trimethoprim 160 mg tablet clonazepam 1 mg tablet (Klonopin) 1 mg PO BID #180 tabs 01/01/21 valacyclovir 1 gram tablet 1,000 mg PO BID #20 tabs 05/15/21 glyburide 5 mg tablet 5 mg PO BID #180 tabs 06/18/21 albuterol sulfate 90 mcg/actuation 2 puff inhalation Q4-6H PRN 07/03/21 aerosol inhaler (Ventolin HFA) shortness of breath #18 grams fluconazole 150 mg tablet 150 mg PO Q3D #4 tabs 08/30/21 pen needle, diabetic 31 gauge x #100 ea 08/31/21 5/16 (Unifine Pentips Plus) oxycodone-acetaminophen 5 mg-325 1 tab PO Q8H PRN pain #7 tabs 09/27/21 mg tablet (Percocet) sulfamethoxazole 800 1 tab PO BID 5 days #10 tabs 09/27/21 mg-trimethoprim 160 mg tablet (Bactrim DS) Allergies Allergy/AdvReac Type Severity Reaction Status Date / Time cephalexin [CEPHALEXIN] Allergy Mild rash Verified 05/15/21 19:36 ibuprofen [From Motrin] Allergy Mild Verified 05/15/21 19:36 latex [LATEX] Allergy Mild unknown Verified 05/15/21 19:36 Review of Systems <AMADOR Tabor - Last Filed: 09/27/21 20:10> Review of Systems Narrative: General: denies fever, chills Head/Neck: denies headache, neck pain Eyes: denies visual changes, eye pain Cardio: denies chest pain, palpitations Respiratory: denies shortness of breath, cough GI: Endorses left-sided flank pain associated with nausea, denies vomiting, or diarrhea : denies dysuria, hematuria or urinary retention MSK: denies new joint pain, muscle weakness or swelling Skin: denies rash, itching or wound Neuro: denies numbness, tingling, dizziness Patient History <AMADOR Tabor - Last Filed: 09/27/21 20:10> Medical History Asthma Kidney stone Migraine headache without aura Mixed anxiety depressive disorder (03/31/15) Morbid obesity (08/15/15) Obstructive sleep apnea syndrome (03/31/15) Polycystic ovaries Rosacea Type 2 diabetes mellitus with other specified complication (03/16/15) Surgical History S/P hysterectomy S/P laparoscopic cholecystectomy S/P tonsillectomy and adenoidectomy S/P tubal ligation Family History Father Diabetes mellitus Mother Seizure Grandmother Coronary artery disease tobacco type: cigarettes alcohol intake frequency: holidays/special occasions only Substance Use Type: does not use Exam <AMADOR Tabor - Last Filed: 09/27/21 20:10> Narrative Exam Narrative: Independently reviewed vitals signs and nursing notes. General: cooperative, comfortable, well groomed, obese, appears to be in mild distress Head: atraumatic, symmetrical facial expressions Neck: supple Eyes: equal round and reactive, EOMI, conjunctiva normal Nose: nares patent, no rhinorrhea Mouth/Throat: moist mucus membranes Cardiovascular: regular rate and rhythm, no peripheral edema, warm extremities Respiratory: normal effort, able to speak in complete sentences, no audible wheezing, stridor, or rales. No retractions or tachypnea. GI: abdomen soft, nontender to palpation, nondistended, no masses, no exquisite tenderness with exam, without guarding or rebound., left-sided CVA tenderness to palpation MSK: moves all extremities, neurovascularly intact, no weakness, normal tone Skin: brisk capillary refill, no rash, no erythema Neuro: normal speech and cognition, A&O x3 Psych: mental status is grossly normal, congruent mood, normal affect, pleasant and cooperative Initial Vital Signs Initial Vital Signs: Vital Signs Temperature 98.5 F 09/27/21 15:38 Pulse Rate 73 09/27/21 15:38 Respiratory Rate 18 09/27/21 15:38 Blood Pressure 144/72 H 09/27/21 15:38 Pulse Oximetry 98 09/27/21 15:38 Oxygen Delivery Method 09/27/21 15:38 <Tyrese Sanches DO - Last Filed: 09/28/21 04:01> Initial Vital Signs Initial Vital Signs: Vital Signs Temperature 98.5 F 09/27/21 15:38 Pulse Rate 73 09/27/21 15:38 Respiratory Rate 18 09/27/21 15:38 Blood Pressure 144/72 H 09/27/21 15:38 Pulse Oximetry 98 09/27/21 15:38 Oxygen Delivery Method 09/27/21 15:38 Course <BRONSON TaborP - Last Filed: 09/27/21 20:10> Orders Ordered: Discontinued Medications Acetaminophen (Acetaminophen 325 Mg Tablet) 975 mg PO NOW ONE Stop: 09/27/21 18:39 Last Admin: 09/27/21 18:46 Dose: 975 mg Documented By: KADEEM Lidocaine (Lidocaine Patch 1 Each Adh..Patch) 1 each TOP NOW ONE Stop: 09/27/21 18:39 Last Admin: 09/27/21 18:45 Dose: 1 each Documented By: KADEEM Ondansetron HCl (Ondansetron 4 Mg Odt) 4 mg SL NOW ONE Stop: 09/27/21 18:39 Last Admin: 09/27/21 18:46 Dose: 4 mg Documented By: KADEEM Oxycodone HCl (Oxycodone Ir 5 Mg Tablet) 5 mg PO NOW ONE Stop: 09/27/21 19:51 Last Admin: 09/27/21 20:03 Dose: Not Given Documented By: CHAI Oxycodone/Acetaminophen (Oxycodone/Apap 5/325 Prepack) 1 bottle MISC SEEINSTR ONE Stop: 09/27/21 19:50 Last Admin: 09/27/21 20:03 Dose: 1 bottle Documented By: CHAI Trimethoprim/Sulfamethoxazole (Trimeth/Sulfa 160/800 (Ds) Tablet) 1 tab PO NOW ONE Stop: 09/27/21 19:50 Last Admin: 09/27/21 20:03 Dose: 1 tab Documented By: CHAI Vital Signs Vital signs: Vital Signs - 8 hr 09/27/21 20:02 Temperature 98.2 F Pulse Rate 60 Respiratory Rate 14 Blood Pressure 118/75 Pulse Oximetry 98 Oxygen Delivery Method Room Air <Tyrese Sanches DO - Last Filed: 09/28/21 04:01> Orders Ordered: Discontinued Medications Acetaminophen (Acetaminophen 325 Mg Tablet) 975 mg PO NOW ONE Stop: 09/27/21 18:39 Last Admin: 09/27/21 18:46 Dose: 975 mg Documented By: KADEEM Lidocaine (Lidocaine Patch 1 Each Adh..Patch) 1 each TOP NOW ONE Stop: 09/27/21 18:39 Last Admin: 09/27/21 18:45 Dose: 1 each Documented By: KADEEM Ondansetron HCl (Ondansetron 4 Mg Odt) 4 mg SL NOW ONE Stop: 09/27/21 18:39 Last Admin: 09/27/21 18:46 Dose: 4 mg Documented By: KADEEM Oxycodone HCl (Oxycodone Ir 5 Mg Tablet) 5 mg PO NOW ONE Stop: 09/27/21 19:51 Last Admin: 09/27/21 20:03 Dose: Not Given Documented By: CHAI Oxycodone/Acetaminophen (Oxycodone/Apap 5/325 Prepack) 1 bottle MISC SEEINSTR ONE Stop: 09/27/21 19:50 Last Admin: 09/27/21 20:03 Dose: 1 bottle Documented By: CHAI Trimethoprim/Sulfamethoxazole (Trimeth/Sulfa 160/800 (Ds) Tablet) 1 tab PO NOW ONE Stop: 09/27/21 19:50 Last Admin: 09/27/21 20:03 Dose: 1 tab Documented By: CHAI Vital Signs Vital signs: Vital Signs - 8 hr 09/27/21 20:02 Temperature 98.2 F Pulse Rate 60 Respiratory Rate 14 Blood Pressure 118/75 Pulse Oximetry 98 Oxygen Delivery Method Room Air MDM - Female Genitourinary <AMADOR Tabor - Last Filed: 09/27/21 20:10> Lab Data Result diagrams: 09/27/21 18:50 09/27/21 18:50 Labs: Lab Results 09/27/21 09/27/21 09/27/21 Range/Units 18:00 18:50 18:50 WBC 11.7 H (4.5-11.0) X10^3/uL RBC 4.94 (4.0-5.2) X10^6/uL Hgb 15.0 (12.0-16.0) g/dL Hct 43.1 (36-46) % MCV 87.2 (80-100) fL MCH 30.5 (26-34) PG MCHC 34.9 (30-36) % RDW 14.5 (11.6-14.8) % Plt Count 263 (150-400) X10^3/uL Neut % (Auto) 61.7 (50-75) % Lymph % (Auto) 29.5 (25-40) % [place] % (Auto) 5.3 (3-14) % Eos % (Auto) 2.3 (2-4) % Baso % (Auto) 1.2 (0-2) % Neut # (Auto) 7200 H (8156-3491) /uL Lymph # (Auto) 3500 (3217-9351) /uL [place] # (Auto) 600 (0-900) /uL Eos # (Auto) 300 (0-450) /uL Baso # (Auto) 100 (0-100) /uL Sodium 137 (137-145) mmol/L Potassium 3.9 (3.4-5.1) mmol/L Chloride 105 (98-107) mmol/L Carbon Dioxide 25 (22-32) mmol/L BUN 9 (7-17) mg/dL Creatinine 0.56 (0.52-1.04) mg/dL Estimated GFR > 60 (>60) mL/min BUN/Creatinine Ratio 16.1 (6-22) Glucose 216 H (70-100) mg/dL Lactate (0.7-2.1) mmol/L Calcium 8.8 (8.4-10.2) mg/dL Total Bilirubin 0.4 (0.2-1.3) mg/dL AST 20 (14-36) IU/L ALT 29 (<35) IU/L Alkaline Phosphatase 75 (38-126) U/L Total Protein 6.8 (6.3-8.2) g/dL Albumin 3.9 (3.5-5.0) g/dL Globulin 2.9 (1.7-4.1) g/dL Albumin/Globulin Ratio 1.3 (1.0-2.8) Urine RBC 0-1/hpf (0-5/HPF) Urine WBC 5-10/hpf H (0-5/HPF) Ur Squamous Epith Cells 1-5 /hpf (0-5/HPF) Ur Transition Epith Cell 1-5/hpf (0-5/HPF) Urine Bacteria Many (>30) H (None) Ur Culture Indicated? Specimen cultured 09/27/21 Range/Units 18:50 WBC (4.5-11.0) X10^3/uL RBC (4.0-5.2) X10^6/uL Hgb (12.0-16.0) g/dL Hct (36-46) % MCV (80-100) fL MCH (26-34) PG MCHC (30-36) % RDW (11.6-14.8) % Plt Count (150-400) X10^3/uL Neut % (Auto) (50-75) % Lymph % (Auto) (25-40) % [place] % (Auto) (3-14) % Eos % (Auto) (2-4) % Baso % (Auto) (0-2) % Neut # (Auto) (5326-3855) /uL Lymph # (Auto) (2158-0100) /uL [place] # (Auto) (0-900) /uL Eos # (Auto) (0-450) /uL Baso # (Auto) (0-100) /uL Sodium (137-145) mmol/L Potassium (3.4-5.1) mmol/L Chloride (98-107) mmol/L Carbon Dioxide (22-32) mmol/L BUN (7-17) mg/dL Creatinine (0.52-1.04) mg/dL Estimated GFR (>60) mL/min BUN/Creatinine Ratio (6-22) Glucose (70-100) mg/dL Lactate 1.5 (0.7-2.1) mmol/L Calcium (8.4-10.2) mg/dL Total Bilirubin (0.2-1.3) mg/dL AST (14-36) IU/L ALT (<35) IU/L Alkaline Phosphatase (38-126) U/L Total Protein (6.3-8.2) g/dL Albumin (3.5-5.0) g/dL Globulin (1.7-4.1) g/dL Albumin/Globulin Ratio (1.0-2.8) Urine RBC (0-5/HPF) Urine WBC (0-5/HPF) Ur Squamous Epith Cells (0-5/HPF) Ur Transition Epith Cell (0-5/HPF) Urine Bacteria (None) Ur Culture Indicated? Urine Dip Bedside Urine Glucose 1000 mg/dl Bedside Urine Bilirubin - Negative Bedside Urine Ketone - Negative Urine Specific [place] 1.015 Bedside Urine Occult Blood - Negative Bedside Urine pH 7.5 Bedside Urine Protein - Negative Bedside Urine Urobilinogen +/- 1mg Bedside Urine Nitrite - Negative Bedside Urine Leukocytes - Negative Esterase Imaging Data CT scan - abdomen/pelvis: Radiologist's Impression: PROCEDURE:? CT KIDNEY URETER BLADDER (KUB) ? INDICATIONS:? left flank pain x5 days ? TECHNIQUE:? Axial sections were acquired from the lung bases to the pubic symphysis.? Coronal and sagittal reformats were performed.? For radiation dose reduction, the following was used: ?automated exposure control, adjustment of mA and/or kV according to patient size.? ? COMPARISON:? [facility], CT, CT ABDOMEN PELVIS W CON, 05/15/2021, 20:17.? [facility], CT, KIDNEY/ URETER/BLADDER, 04/08/2017, 18:56.? [facility], CT, CT KIDNEY URETER BLADDER (KUB), 01/19/2020, 22:15. ? FINDINGS:? Image quality:? Excellent.? ? Lung bases:? Unremarkable.? ? Heart:? No significant findings. ? URINARY: Right Kidney: ? No stones or hydronephrosis.? Right Ureter:? No hydroureter.? ? Left Kidney: ? No stones or hydronephrosis. Left Ureter:? No hydroureter.? ? Bladder:? Normal wall thickness. No stones. ? ? ? ABDOMEN: Liver:? Unremarkable.? ? Gallbladder:? Removed.? ? Biliary ducts:? Unremarkable.? ? Pancreas:? Unremarkable.? ? Spleen:? Unremarkable.? ? Adrenal Glands:? A right adrenal nodule is seen that measures 2.9 cm and 28 Hounsfield units on this noncontrast study. ? Stomach and Bowel:? Stomach, small bowel loops, and colon are unremarkable.? Peritoneum:? No abnormal intraperitoneal fluid.? No free air.? ? Ventral Wall: ? No hernia.? Abdominal Nodes:? No enlarged retroperitoneal or mesenteric lymph nodes.? Vessels:? Aorta and inferior vena cava are normal in size.? ? PELVIS: Pelvic Organs:? Prior hysterectomy.? Sterilization clips are incidentally noted within the pelvis.? Mild prominence of the ovaries is again seen. Pelvic Nodes: Unremarkable. Miscellaneous: No inguinal hernias are seen. ? ? ? Bones:? Unremarkable. ? IMPRESSION:? ? Negative for kidney stones or obstructive uropathy. ? Stable right adrenal nodule. ? Mildly prominent ovaries are again seen. ? Incidental note is made of: Cholecystectomy Hysterectomy Sterilization clips ? ? Dictated by: Baljit Jordan M.D. on 09/27/2021 at 18:47 ? ? Approved by: Baljit Jordan M.D. on 09/27/2021 at 18:51 ? MDM Narrative Medical decision making narrative: This is a 46-year-old female with history of obesity, type 2 diabetes in his insulin-dependent, polycystic ovaries, FLAVIO who presents to the emergency department complaining of ?kidney pain? for the last three days. Patient's urine dip was positive for glucose but did not show any leukocytes or blood, the lab lost the urine for a few hours, but when it was found, urine microscopy showed many bacteria and wbc's. CT KUB was ordered while waiting for that urine due to patient's complaint of kidney pain with her comorbidities. CT KUB is negative for kidney stones or obstructive uropathy, she has a stable right adrenal nodule which was visualized on previous CTs, and mildly prominent ovaries are seen again. Patient has a history of cholecystectomy, hysterectomy and sterilization clips were incidentally noted within the pelvis as well. She has a mild leukocytosis with a WBC of 11.7, no electrolyte abnormalities, glucose is 216 she was here, lactate is 1.5, no elevation in her liver enzymes or total bilirubin, urine was sent for culture and this is pending. Treated patient with Bactrim twice a day for the next five days, encouraged hydration and frequent bladder emptying. Encourage patient to follow-up with her PCP for a test of cure if she continues to have symptoms after 2-3 days. Patient complaining of pain but states she can not take anything other than Tylenol or Percocet, she requests some Percocet to go home with, gave her a small prescription of this and sent her home with a prepack. No peritoneal signs on abdominal exam. Patient remains p.o. tolerant. Serial abdominal exam without increase in abdominal pain. Given history and exam, low suspicion for acute abdominal process, such as acute pancreatitis, perforated viscus, atypical appendicitis, colitis, diverticulitis or torsion. Extensive conversation about ER return precautions and need for close follow-up. Patient is appropriate and amenable to discharge home. Vital signs are stable on repeat examination is unremarkable. Patient has been informed of results. Patient has been given strict return to ER precautions for any new or worsening symptoms. Patient understands to follow up closely with outpatient providers as instructed. Patient understands plan and agrees to discharge home. All questions and concerns answered at this time. <Tyrese Sanches DO - Last Filed: 09/28/21 04:01> Lab Data Labs: Lab Results 09/27/21 09/27/21 09/27/21 Range/Units 18:00 18:50 18:50 WBC 11.7 H (4.5-11.0) X10^3/uL RBC 4.94 (4.0-5.2) X10^6/uL Hgb 15.0 (12.0-16.0) g/dL Hct 43.1 (36-46) % MCV 87.2 (80-100) fL MCH 30.5 (26-34) PG MCHC 34.9 (30-36) % RDW 14.5 (11.6-14.8) % Plt Count 263 (150-400) X10^3/uL Neut % (Auto) 61.7 (50-75) % Lymph % (Auto) 29.5 (25-40) % [place] % (Auto) 5.3 (3-14) % Eos % (Auto) 2.3 (2-4) % Baso % (Auto) 1.2 (0-2) % Neut # (Auto) 7200 H (2901-6022) /uL Lymph # (Auto) 3500 (3641-9613) /uL [place] # (Auto) 600 (0-900) /uL Eos # (Auto) 300 (0-450) /uL Baso # (Auto) 100 (0-100) /uL Sodium 137 (137-145) mmol/L Potassium 3.9 (3.4-5.1) mmol/L Chloride 105 (98-107) mmol/L Carbon Dioxide 25 (22-32) mmol/L BUN 9 (7-17) mg/dL Creatinine 0.56 (0.52-1.04) mg/dL Estimated GFR > 60 (>60) mL/min BUN/Creatinine Ratio 16.1 (6-22) Glucose 216 H (70-100) mg/dL Lactate (0.7-2.1) mmol/L Calcium 8.8 (8.4-10.2) mg/dL Total Bilirubin 0.4 (0.2-1.3) mg/dL AST 20 (14-36) IU/L ALT 29 (<35) IU/L Alkaline Phosphatase 75 (38-126) U/L Total Protein 6.8 (6.3-8.2) g/dL Albumin 3.9 (3.5-5.0) g/dL Globulin 2.9 (1.7-4.1) g/dL Albumin/Globulin Ratio 1.3 (1.0-2.8) Urine RBC 0-1/hpf (0-5/HPF) Urine WBC 5-10/hpf H (0-5/HPF) Ur Squamous Epith Cells 1-5 /hpf (0-5/HPF) Ur Transition Epith Cell 1-5/hpf (0-5/HPF) Urine Bacteria Many (>30) H (None) Ur Culture Indicated? Specimen cultured 09/27/21 Range/Units 18:50 WBC (4.5-11.0) X10^3/uL RBC (4.0-5.2) X10^6/uL Hgb (12.0-16.0) g/dL Hct (36-46) % MCV (80-100) fL MCH (26-34) PG MCHC (30-36) % RDW (11.6-14.8) % Plt Count (150-400) X10^3/uL Neut % (Auto) (50-75) % Lymph % (Auto) (25-40) % [place] % (Auto) (3-14) % Eos % (Auto) (2-4) % Baso % (Auto) (0-2) % Neut # (Auto) (8549-8359) /uL Lymph # (Auto) (9757-4150) /uL [place] # (Auto) (0-900) /uL Eos # (Auto) (0-450) /uL Baso # (Auto) (0-100) /uL Sodium (137-145) mmol/L Potassium (3.4-5.1) mmol/L Chloride (98-107) mmol/L Carbon Dioxide (22-32) mmol/L BUN (7-17) mg/dL Creatinine (0.52-1.04) mg/dL Estimated GFR (>60) mL/min BUN/Creatinine Ratio (6-22) Glucose (70-100) mg/dL Lactate 1.5 (0.7-2.1) mmol/L Calcium (8.4-10.2) mg/dL Total Bilirubin (0.2-1.3) mg/dL AST (14-36) IU/L ALT (<35) IU/L Alkaline Phosphatase (38-126) U/L Total Protein (6.3-8.2) g/dL Albumin (3.5-5.0) g/dL Globulin (1.7-4.1) g/dL Albumin/Globulin Ratio (1.0-2.8) Urine RBC (0-5/HPF) Urine WBC (0-5/HPF) Ur Squamous Epith Cells (0-5/HPF) Ur Transition Epith Cell (0-5/HPF) Urine Bacteria (None) Ur Culture Indicated? Urine Dip Bedside Urine Glucose 1000 mg/dl Bedside Urine Bilirubin - Negative Bedside Urine Ketone - Negative Urine Specific [place] 1.015 Bedside Urine Occult Blood - Negative Bedside Urine pH 7.5 Bedside Urine Protein - Negative Bedside Urine Urobilinogen +/- 1mg Bedside Urine Nitrite - Negative Bedside Urine Leukocytes - Negative Esterase Discharge Plan Departure Patient Disposition: Home Clinical Impression: Adrenal incidentaloma, Complicated UTI (urinary tract infection) Instructions: DI for Kidney Infection, DI for Urinary Tract Infection (UTI) Activity Restrictions/Additional Instructions: *You have been diagnosed with a complicated UTI. Your CT does not show any kid [place] stones, it does not show any swelling of your kidney and overall the function of your kidneys appears normal on your lab work. Please take this antibiotic twice a day for the next five days, use Tylenol and Percocet as needed for your pain. Please stay hydrated, empty your bladder frequently, try to avoid going to bed with urine in your bladder. Follow-up with your primary doctor for recheck if you do not feel like your symptoms are fully gone. Thank you for trusting us with your care, return for any worsening of this, nausea or vomiting, or any other concerning symptoms. I hope you feel better soon. Please remember to use a stool softener while taking opiate medications. *What to do: *Please continue to take your regular medications as directed. [x ] New medication prescriptions sent to your pharmacy: [[facility] ] [ ] New medication written as a paper prescription [ ] No new medications given *Please follow up with your primary care provider in 2-3 days, call for an appointment. Let them know you were seen in the Emergency Department and that we asked that you be seen for follow-up. We will electronically transmit a record of today's note if your PCP is in our system *If you do not have a primary care provider please contact [phone] to establish care with one of the [facility] primary care providers. *Return to Emergency Department if you should have any new, worsening or concerning symptoms, such as [fever greater than 101F, chills, worsening pain, persistent vomiting or other bothersome symptoms] Prescriptions: New oxycodone-acetaminophen [Percocet] 5-325 mg tablet 1 tab PO Q8H PRN (Reason: pain) Qty: 7 0RF sulfamethoxazole-trimethoprim [Bactrim DS] 800-160 mg tablet 1 tab PO BID 5 Days Qty: 10 0RF No Action cholecalciferol (vitamin D3) [Vitamin D3] 2,000 UNIT tablet 1 tab PO QDAY Qty: 90 3RF Ivins 5/16 Inch SQ HS Qty: 50 (DME) Lancets TRUPLUS 0 .Route .MEDSUPPLY Qty: 100 2RF Dose Instruction: As directed Rx Instructions: USE TO CHECK BLOOD SUGAR 4 TIMES A DAY. PT DUE FOR F/UP W/PCP PRIOR TO FUTURE FILLS. PLEASE CALL TO SCHED FUTURE APPT. THANK YOU. 09/15/19 atorvastatin 40 mg tablet 40 mg PO DAILY Qty: 90 3RF lisinopril [Zestril] 5 mg tablet 5 mg PO QDAY Qty: 90 3RF gemfibrozil 600 mg tablet 600 mg PO BID Qty: 60 5RF clonazepam [Klonopin] 1 mg tablet 1 mg PO BID Qty: 180 3RF glyburide 5 mg tablet 5 mg PO BID Qty: 180 0RF Rx Instructions: APPT NEEDED W/PCP AT EARLIEST CONVENIENCE. BEFORE END OF RX/FUTURE FILLS. PLEASE CALL TO SCHEDULE. THANK YOU 06/18/21 albuterol sulfate [Ventolin HFA] 90 mcg/actuation HFA aerosol inhaler 2 puff INHALATION Q4-6H PRN (Reason: shortness of breath) Qty: 18 5RF fluconazole 150 mg tablet 150 mg PO Q3D Qty: 4 1RF (DME) pen needle, diabetic [Unifine Pentips Plus] 31 gauge x 5/16 needle See Rx Instructions .ROUTE .MEDSUPPLY Qty: 100 0RF Rx Instructions: Use as directed for insulin shots. albuterol sulfate 2.5 mg /3 mL (0.083 %) solution for nebulization 2.5 mg continuous nebulization Q6H Qty: 15 3RF Victoza 2-Ziggy 0.6 mg/0.1 mL (18 mg/3 mL) pen injector 1.2 mg SUBCUT DAILY sulfamethoxazole-trimethoprim 800-160 mg tablet 1 tab PO BID Qty: 20 0RF magnesium citrate 125 mg capsule 375 mg PO BEDTIME omeprazole 40 mg capsule,delayed release(DR/EC) 40 mg PO DAILY PRN valacyclovir 1 gram tablet 1,000 mg PO BID Qty: 20 0RF (DME) Resmed Aircurve 10 BIPAP Qty: 1 Dose Instruction: As directed Label Comments: Pressure: IPAP 20 EPAP 12 DME: [facility] Rx Instructions: As directed Referrals: Vic Brothers MD [Primary Care Provider] - Visit Report Forms: Patient Portal/API <Tyrese Sanches DO - Last Filed: 09/28/21 04:01> Cosign ED Attending Cosignature Attestation: I was immediately available in the department for consultation. This documentation has been reviewed and I agree with assessment and plan. Supervised by Tyrese Sanches DO
[2021-09-27] MEDS: LIDOCAINE PATCH 1 EACH ADH..PATCH TOP (18:45)
[2021-09-27] MEDS: ONDANSETRON 4 MG ODT SL (18:46)
[2021-09-27] MEDS: ACETAMINOPHEN 325 MG TABLET 975 MG PO (18:46)
[2021-09-27 19:13] LABS: Add Manual Diff / Slide Review NO; Basophils Absolute Auto 100 /uL (0-100); Basophils Percent Auto 1.2 % (0-2); Eosinophils Absolute Auto 300 /uL (0-450); Eosinophils Percent Auto 2.3 % (2-4); Hematocrit 43.1 % (36-46); Lymphocytes Absolute Auto 3500 /uL (1100-4500); Lymphocytes Percent Auto 29.5 % (25-40); Mean Corpuscular HGB Conc 34.9 % (30-36); Mean Corpuscular Hemoglobin 30.5 PG (26-34); Mean Corpuscular Volume 87.2 fL (80-100); Monocytes Absolute Auto 600 /uL (0-900); Monocytes Percent Auto 5.3 % (3-14); Neutrophils Absolute Auto 7200 /uL (1500-7000); Neutrophils Percent Auto 61.7 % (50-75); Platelet Count 263 X10^3/uL (150-400); Red Blood Cell Count 4.94 X10^6/uL (4.0-5.2); Red Cell Distribution Width 14.5 % (11.6-14.8); White Blood Cell Count 11.7 X10^3/uL (4.5-11.0)
[2021-09-27 19:21] LABS: Alanine Aminotransferase 29 IU/L (<35); Albumin 3.9 g/dL (3.5-5.0); Albumin Globulin Ratio 1.3 (1.0-2.8); Alkaline Phosphatase 75 U/L (38-126); Aspartate Aminotransferase 20 IU/L (14-36); BUN Creatinine Ratio 16.1 (6-22); Bilirubin Total 0.4 mg/dL (0.2-1.3); Blood Urea Nitrogen 9 mg/dL (7-17); Calcium 8.8 mg/dL (8.4-10.2); Carbon Dioxide 25 mmol/L (22-32); Chloride 105 mmol/L (98-107); Estimated Glomerular Filt Rate > 60 mL/min (>60); Globulin 2.9 g/dL (1.7-4.1); Glucose 216 mg/dL (70-100); HEMOLYSIS < 15 (0-50); Lactate (Lactic Acid) 1.5 mmol/L (0.7-2.1); Potassium 3.9 mmol/L (3.4-5.1); Sodium 137 mmol/L (137-145); Total Protein 6.8 g/dL (6.3-8.2)
[2021-09-27 19:40] LABS: RBC Urine 0-1/HPF (0-5/HPF); WBC Urine 5-10/HPF (0-5/HPF)
[2021-09-27 19:41] LABS: Bacteria Urine Many (>30); Culture Indicated Urine Specimen Cultured; Squamous Epithelial Cell Urine 1-5 /HPF (0-5/HPF); Transitional Epi Cells Urine 1-5/HPF (0-5/HPF)
[2021-09-27 20:02] VITALS: BP 118/75; PULSE 60; RESP 14; TEMP 36.8; O2SAT 98
[2021-09-27] MEDS: TRIMETH/SULFA 160/800 (DS) TABLET 1 TAB PO (20:03)
[2021-09-27] MEDS: OXYCODONE/APAP 5/325 PREPACK 1 BOTTLE MISC (20:03)
== END 2021-09-27 20:09 | disposition home or self-care (01) ==
PROVIDERS: Emergency Provider Nurse Practitioner Critical Care Medicine; PCP Internal Medicine
DX: E27.8 Other specified disorders of adrenal gland (principal); N39.0 Urinary tract infection, site not specified
CPT/HCPCS: 74176; 80053; 81003; 81015; 83605; 85025; 87086; 99283; 99284

== ENCOUNTER → 2022-05-31 09:19 | Outpatient (CLI) | payer OTHER, MEDICAID, SELFPAY ==
[2022-05-31 10:17] LABS: Add Manual Diff / Slide Review NO; Basophils Absolute Auto 0 /uL (0-100); Basophils Percent Auto 0.2 % (0-2); Eosinophils Absolute Auto 200 /uL (0-450); Eosinophils Percent Auto 2.3 % (2-4); Hematocrit 39.2 % (36-46); Hemoglobin 13.8 g/dL (12.0-16.0); Lymphocytes Absolute Auto 2000 /uL (1100-4500); Lymphocytes Percent Auto 26.8 % (25-40); Mean Corpuscular HGB Conc 35.2 % (30-36); Mean Corpuscular Hemoglobin 30.7 PG (26-34); Mean Corpuscular Volume 87.2 fL (80-100); Monocytes Absolute Auto 400 /uL (0-900); Monocytes Percent Auto 5.2 % (3-14); Neutrophils Absolute Auto 4800 /uL (1500-7000); Neutrophils Percent Auto 65.5 % (50-75); Platelet Count 251 X10^3/uL (150-400); Red Blood Cell Count 4.49 X10^6/uL (4.0-5.2); Red Cell Distribution Width 14.2 % (11.6-14.8); White Blood Cell Count 7.3 X10^3/uL (4.5-11.0)
[2022-05-31 10:26] LABS: HEMOLYSIS < 15 (0-50); Iron 63 ug/dL (37-170)
[2022-05-31 10:28] LABS: Alanine Aminotransferase 29 IU/L (<35); Albumin 3.6 g/dL (3.5-5.0); Albumin Globulin Ratio 1.3 (1.0-2.8); Alkaline Phosphatase 67 U/L (38-126); Aspartate Aminotransferase 20 IU/L (14-36); BUN Creatinine Ratio 15.8 (6-22); Bilirubin Total 0.5 mg/dL (0.2-1.3); Blood Urea Nitrogen 9 mg/dL (7-17); Calcium 8.5 mg/dL (8.4-10.2); Carbon Dioxide 27 mmol/L (22-32); Chloride 102 mmol/L (98-107); Cholesterol 100 mg/dL (140-199); Estimated Glomerular Filt Rate > 60 mL/min (>60); Globulin 2.8 g/dL (1.7-4.1); Glucose 186 mg/dL (70-100); HDL Cholesterol 20 mg/dL (40-60); HEMOLYSIS < 15 (0-50); LDL Cholesterol Calculated 21 mg/dL (<100); Potassium 3.8 mmol/L (3.4-5.1); Sodium 137 mmol/L (137-145); Total Protein 6.4 g/dL (6.3-8.2); Triglycerides 295 mg/dL (35-150)
[2022-05-31 10:29] LABS: Albumin 3.5 g/dL (3.5-5.0); BUN Creatinine Ratio 15.8 (6-22); Blood Urea Nitrogen 9 mg/dL (7-17); Calcium 8.6 mg/dL (8.4-10.2); Carbon Dioxide 28 mmol/L (22-32); Chloride 103 mmol/L (98-107); Estimated Glomerular Filt Rate > 60 mL/min (>60); Glucose 186 mg/dL (70-100); HEMOLYSIS < 15 (0-50); Phosphorous 3.5 mg/dL (2.5-4.5); Potassium 3.8 mmol/L (3.4-5.1); Sodium 137 mmol/L (137-145)
[2022-05-31 10:37] LABS: Percent Iron Saturation 21 % (15-50); Total Iron Binding Capacity 302 ug/dL (265-497); Transferrin 226 mg/dL (206-381)
[2022-05-31 11:01] LABS: Ferritin 282 ng/mL (6-137)
[2022-05-31 11:05] LABS: TSH w/ Reflex to FT4 1.68 uIU/mL (0.47-4.68)
[2022-05-31 13:55] LABS: Creatinine Urine Random 217.6 mg/dL
[2022-05-31 14:03] LABS: Microalbumi Creatinin Ratio Ur 20.6 ug/mg CR (<30); Microalbumin Urine Random 4.5 mg/dL (0-1.6)
[2022-06-01 06:09] LABS: x Labcorp Estim. Avg Glu (eAG) 166 mg/dL (.); x Labcorp Hemoglobin A1c 7.4 % (4.8-5.6)
== END ==
PROVIDERS: PCP Internal Medicine; Referring Provider Student in an Organized Health Care Education/Training Program; Visit Provider Student in an Organized Health Care Education/Training Program
DX: E11.65 Type 2 diabetes mellitus with hyperglycemia (principal); Z79.4 Long term (current) use of insulin; E11.69 Type 2 diabetes mellitus with other specified complication; E78.1 Pure hyperglyceridemia; E66.01 Morbid (severe) obesity due to excess calories
CPT/HCPCS: 80053; 80061; 80069; 82043; 82570; 82728; 83036; 83540; 83550; 84443; 85025

== ENCOUNTER → 2022-07-01 08:26 | Outpatient (CLI) | payer OTHER, MEDICAID, SELFPAY ==
--- NOTE | 2022-07-01 08:27 | DI.MG.S_ITS ---
BILATERAL DIGITAL SCREENING MAMMOGRAM 3D/2D WITH CAD: 07/01/2022 CLINICAL: Routine screening. Baseline exam. No prior exams were available for comparison. There are scattered areas of fibroglandular density in both breasts (category b / 25%-50% glandular tissue). Current study was also evaluated with a Computer Aided Detection (CAD) system. No significant masses, calcifications, or other findings are seen in either breast. IMPRESSION: NEGATIVE There is no mammographic evidence of malignancy. A 1 year screening mammogram is recommended. Based on the Tyrer Cuzick model (a risk assessment model) the patient's lifetime risk is 3.5% and her 10 year risk is 0.7%. According to the ACR, ACS, and NCCN guidelines, an annual breast MRI exam along with mammogram is recommended if the patient's lifetime risk is 20% or greater. This exam was interpreted at Station ID: [id number]. NOTE: For mammograms, a report in lay terms will be sent to the patient. Approximately 15% of breast malignancies will not be visualized mammographically. In the management of a palpable breast mass, a negative mammogram must not discourage biopsy of a clinically suspicious lesion. Electronically Signed By: Roger childers/gerard:07/01/2022 12:26:21 letter sent: Normal Exam ACR BI-RADS Category 1: Negative 3341F
== END ==
PROVIDERS: PCP Internal Medicine; Referring Provider Internal Medicine; Visit Provider Internal Medicine
DX: Z12.31 Encounter for screening mammogram for malignant neoplasm of breast (principal)
CPT/HCPCS: 77063; 77067

== ENCOUNTER 2022-10-01 07:39 | Day surgery (SDC) | payer OTHER, MEDICAID, SELFPAY ==
--- NOTE | 2022-10-01 | PATH_ITS ---
[facility] Accession Number: [id number] No. of containers..01 Tissue . 01 Material submitted: . cecum - CECAL POLYP . 01 Diagnosis: Cecum, Polyp: Favor inflammatory polyp. Additional levels were examined. [facility] 10/11/2022 1432 Local . 01 Electronically signed: . Michelle Brooks MD, Pathologist NPI- [id number] . 01 Gross description: . CECAL POLYP: Received in formalin is multiple fragment(s) of pitt, soft tissue measuring 0.6 x 0.3 x 0.2 cm in aggregate submitted entirely in 1 cassette(s) /AAY 10/03/2022 1314 Local . 01 Pathologist provided ICD-10: K63.5 . 01 CPT . 547231 Specimen Comment: A courtesy copy of this report has been sent to [phone] Performed at: 01 [facility] [address] [place] [address] [address] [facility]– [place], [place], [place] [id number] MD Dean Biswas MD Phone: [phone]
[2022-10-01 07:57] VITALS: BMI 50.6
[2022-10-01] MEDS: LACTATED RINGERS 1,000 ML 200 ML IV (08:06)
[2022-10-01 08:07] VITALS: BP 112/71; PULSE 65; RESP 18; TEMP 36.3; O2SAT 96
--- NOTE | 2022-10-01 08:45 | PM.HP.1 ---
History of Present Illness History of Present Illness Date Patient Seen: 10/01/22 Time Patient Seen: 08:45 Chief complaint: Colonoscopy Narrative: 47-year-old woman history of obesity and asthma here for screening colonoscopy. No prior colonoscopy. No first-degree family members with a history of colon cancer. No abdominal pain unintentional weight loss blood per rectum. [facility] Medical History Asthma Kidney stone Migraine headache without aura Mixed anxiety depressive disorder (03/31/15) Morbid obesity (08/15/15) Obstructive sleep apnea syndrome (03/31/15) Polycystic ovaries Rosacea Type 2 diabetes mellitus with other specified complication (03/16/15) Surgical History S/P hysterectomy S/P laparoscopic cholecystectomy S/P tonsillectomy and adenoidectomy S/P tubal ligation Family History Father Diabetes mellitus Mother Seizure Grandmother Coronary artery disease Social History marital status: details: harley España, lives in [place] household members: spouse lives independently: Yes caregiver/support person: No housing: house occupational status: employed Smoking Status: Current every day smoker quit status: not considering quitting alcohol intake: current substance use type: does not use Meds Home Medications and Allergies Home Medications Medication Instructions Recorded Confirmed Type cholecalciferol (vitamin D3) 50 1 tab PO QDAY #90 tabs 02/29/16 10/01/22 Rx mcg (2,000 unit) tablet (Vitamin D3) [place] 5/16 Inch units SQ HS ##50 08/07/16 07/23/22 History Resmed Aircurve 10 BIPAP #1 ea 06/16/18 07/23/22 History magnesium citrate 125 mg capsule 375 mg PO BEDTIME 01/26/19 10/01/22 History Lancets TRUPLUS #100 ea 09/15/19 07/23/22 Rx omeprazole 40 mg capsule,delayed 40 mg PO DAILY PRN Acid Reflux 12/06/19 10/01/22 History release atorvastatin 40 mg tablet 40 mg PO DAILY #90 tabs 12/13/19 10/01/22 Rx lisinopril 5 mg tablet (Zestril) 5 mg PO QDAY #90 tabs 06/26/20 10/01/22 Rx pen needle, diabetic 31 gauge x #100 ea 08/31/21 07/23/22 Rx 5/16 (Unifine Pentips Plus) albuterol sulfate 2.5 mg/3 mL 2.5 mg (3 mL) continuous 06/25/22 10/01/22 Rx (0.083 %) solution for nebulization nebulization Q6H #15 mL clonazepam 1 mg tablet (Klonopin) 1 mg PO BID #180 tabs 06/25/22 10/01/22 Rx glyburide 5 mg tablet 5 mg PO BID #180 tabs 07/19/22 10/01/22 Rx peg 3350-electrolytes 236 240 ml PO Q10M #4,000 mL 08/12/22 10/01/22 Rx gram-22.74 gram-6.74 gram-5.86 gram solution (Golytely) albuterol sulfate 90 mcg/actuation 2 puff inhalation Q4-6H PRN 09/13/22 10/01/22 Rx aerosol inhaler (Ventolin HFA) shortness of breath #18 grams aspirin 81 mg capsule 81 mg PO DAILY 10/01/22 10/01/22 History fluconazole 150 mg tablet 150 mg PO Q3D PRN Rash 10/01/22 10/01/22 History insulin glargine U-300 conc 300 150 unit SUBCUT DAILY 10/01/22 10/01/22 History unit/mL (3 mL) subcutaneous pen (Toujeo Max U-300 SoloStar) liraglutide 0.6 mg/0.1 mL (18 mg/3 1.8 mg SUBCUT DAILY 10/01/22 10/01/22 History mL) subcutaneous pen injector (Victoza 3-Ziggy) Allergies Allergy/AdvReac Type Severity Reaction Status Date / Time cephalexin [CEPHALEXIN] Allergy Mild rash Verified 10/01/22 07:51 ibuprofen [From Motrin] Allergy Mild Rash Verified 10/01/22 07:51 latex [LATEX] Allergy Mild Rash Verified 10/01/22 07:51 adhesive tape AdvReac Unknown Rash Verified 10/01/22 07:51 Exam Vital Signs (past 8 hours): - 10/01/22 08:07 Temperature 97.3 F L Pulse Rate 65 Respiratory Rate 18 Blood Pressure 112/71 Pulse Oximetry 96 Oxygen Delivery Method Room Air Oxygen Delivery Method Room Air Narrative Exam Narrative: General adult woman alert oriented no acute distress Abdomen soft nontender nondistended Assessment & Plan Assessment & Plan narrative: The patient requires colorectal screening and colonoscopy is recommended. Technical details were discussed. Risks, benefits, alternatives explained. Risks including but not limited to myocardial infarction, aspiration, bleeding, pain, missed lesion, incomplete examination, need for further radiographic studies, colonic perforation, and need for major abdominal surgery were discussed. All questions were answered to their satisfaction, and they are in agreement with this plan.
[2022-10-01 09:20] VITALS: BP 108/64; PULSE 79; RESP 12; TEMP 36.1; O2SAT 96
--- NOTE | 2022-10-01 09:23 | PM.OP.COLON ---
Operative Date/Time/Diagnoses Date of procedure: 10/01/22 Time of procedure: 09:23 Pre-op diagnosis: Colorectal screening Post-op diagnosis: other (Colonic polyps x1) Procedure & Clinicians Study performed: Colonoscopy and polypectomy Same procedure as scheduled: Yes Indications: Colorectal screening Surgeon: Cruzito Taylor Procedure Notes Procedure in detail: The history and physical was performed/updated and the patient is ASA class is 2. The procedure was discussed in detail with the patient. Potential risks complications including infection, bleeding, missed diagnosis, perforation, need for surgery, and were explained. Their questions were answered and informed consent was obtained. Patient was brought to the procedure room and placed standard monitoring equipment. The patient's vital signs were monitored continuously throughout the entire procedure. Prior to starting time-out was performed. The patient was placed in the left lateral recumbent position. Procedural sedation was administered by anesthesia. Examination began with a thorough inspection of the perianal area there was no evidence of fissures, fistulae, external hemorrhoids or cutaneous malignancy. The colonoscopy scope was then placed into the anal canal and was advanced to the cecum, which was identified by the ileocecal valve, the appendiceal orifice and the confluence of the taenia. The scope was then slowly withdrawn examining colon thoroughly in all directions, irrigating it of any residual stool. Cecum-5 mm polyp removed with biopsy forceps. Remainder of the colon was normal in its appearance. The patient tolerated the procedure well. They will be discharged once criteria are met. The prep was of fair quality. The withdrawl time was 8 minutes. Specimen(s): other (Cecal polyp) Impression: Colonic polyp x1 Post-procedure Plan for aftercare: Follow-up is dependent on pathology findings likely 5 years Disposition: same day surgery
[2022-10-01 09:25] VITALS: BP 99/60; PULSE 70; RESP 12; O2SAT 97
[2022-10-01 09:31] VITALS: BP 97/63; PULSE 76; RESP 12; O2SAT 98
[2022-10-01 09:34] VITALS: BP 96/59; PULSE 66; RESP 12; O2SAT 97
[2022-10-01 09:39] VITALS: BP 96/65; PULSE 63; RESP 12; TEMP 36.1; O2SAT 97
== END 2022-10-01 09:52 | disposition home or self-care (01) ==
PROVIDERS: PCP Internal Medicine; Referring Provider Surgery; Visit Provider Surgery
PROC: 0DJD8ZZ Inspection of Lower Intestinal Tract, Via Natural or Artificial Opening Endoscopic (ICD-10-PCS; CPT 45378; principal; 2022-10-01 08:45)
DX: Z12.11 Encounter for screening for malignant neoplasm of colon (principal); K63.5 Polyp of colon
CPT/HCPCS: 45380; J2704

== ENCOUNTER → 2022-12-13 07:27 | Outpatient (CLI) | payer OTHER, MEDICAID, SELFPAY ==
[2022-12-13 08:44] LABS: Creatinine Urine Random 194.4 mg/dL
[2022-12-13 08:48] LABS: Microalbumi Creatinin Ratio Ur 8.2 ug/mg CR (<30); Microalbumin Urine Random 1.6 mg/dL (0-1.6)
[2022-12-13 09:15] LABS: Albumin 3.7 g/dL (3.5-5.0); BUN Creatinine Ratio 17.7 (6-22); Blood Urea Nitrogen 11 mg/dL (7-17); Calcium 9.1 mg/dL (8.4-10.2); Carbon Dioxide 24 mmol/L (22-32); Chloride 103 mmol/L (98-107); Cholesterol 92 mg/dL (140-199); Estimated Glomerular Filt Rate > 60 mL/min (>60); Glucose 132 mg/dL (70-100); HDL Cholesterol 20 mg/dL (40-60); HEMOLYSIS < 15 (0-50); LDL Cholesterol Calculated 36 mg/dL (<100); Phosphorous 3.9 mg/dL (2.5-4.5); Potassium 3.7 mmol/L (3.4-5.1); Sodium 137 mmol/L (137-145); Triglycerides 181 mg/dL (35-150)
== END ==
PROVIDERS: PCP Internal Medicine; Referring Provider Student in an Organized Health Care Education/Training Program; Visit Provider Student in an Organized Health Care Education/Training Program
DX: E11.65 Type 2 diabetes mellitus with hyperglycemia (principal); Z79.4 Long term (current) use of insulin
CPT/HCPCS: 36415; 80061; 80069; 82043; 82570; 83036

== ENCOUNTER 2023-03-14 11:32 | Emergency (ER) | payer OTHER, MEDICAID, SELFPAY ==
[2023-03-14 11:34] VITALS: BP 192/86; PULSE 70; RESP 24; TEMP 35.7; O2SAT 99; BMI 52.3
--- NOTE | 2023-03-14 11:47 | ED.DENTAL ---
HPI - Dental/Oral <Mariana Pulido PA-C - Last Filed: 03/14/23 12:22> General Chief complaint: Dental/Oral Stated complaint: L upper tooth ache, t-7, poss infection Time Seen by Provider: 03/14/23 11:46 Source: patient Mode of arrival: Ambulatory History of Present Illness HPI Narrative: Patient is a 48-year-old female with diabetes presenting for evaluation of left upper molar pain worsening over the last week. She states that she has not having any difficulty swallowing or fever body aches or chills. She does note that the pain radiates into her left ear. She reports increased pain with chewing on the left side as well as sensitivity to direct airflow from her BiPAP. She states that she took Tylenol this morning at 7. She reports allergy to cephalexin, but states she has had no issues with Augmentin. She has been unable to get in with a dentist in the area, because she states they do not take her insurance. Related Data Home Medications Medication Instructions Recorded Confirmed [place] 5/16 Inch units SQ HS ##50 08/07/16 01/20/23 Resmed Aircurve 10 BIPAP #1 ea 06/16/18 01/20/23 magnesium citrate 125 mg capsule 375 mg PO BEDTIME 01/26/19 01/20/23 aspirin 81 mg capsule 81 mg PO DAILY 10/01/22 01/20/23 fluconazole 150 mg tablet 150 mg PO Q3D PRN Rash 10/01/22 01/20/23 insulin glargine U-300 conc 300 150 unit SUBCUT DAILY 10/01/22 01/20/23 unit/mL (3 mL) subcutaneous pen (Toujeo Max U-300 SoloStar) liraglutide 0.6 mg/0.1 mL (18 mg/3 1.8 mg SUBCUT DAILY 10/01/22 01/20/23 mL) subcutaneous pen injector (Victoza 3-Ziggy) Previous Rx's Medication Instructions Recorded cholecalciferol (vitamin D3) 50 1 tab PO QDAY #90 tabs 02/29/16 mcg (2,000 unit) tablet (Vitamin D3) Lancets TRUPLUS #100 ea 09/15/19 atorvastatin 40 mg tablet 40 mg PO DAILY #90 tabs 12/13/19 lisinopril 5 mg tablet (Zestril) 5 mg PO QDAY #90 tabs 06/26/20 pen needle, diabetic 31 gauge x #100 ea 08/31/21/16 (Unifine Pentips Plus) albuterol sulfate 2.5 mg/3 mL 2.5 mg (3 mL) continuous 06/25/22 (0.083 %) solution for nebulization nebulization Q6H #15 mL clonazepam 1 mg tablet (Klonopin) 1 mg PO BID #180 tabs 06/25/22 glyburide 5 mg tablet 5 mg PO BID #180 tabs 07/19/22 albuterol sulfate 90 mcg/actuation 2 puff inhalation Q4-6H PRN 09/13/22 aerosol inhaler (Ventolin HFA) shortness of breath #18 grams azithromycin 250 mg tablet See Rx Instructions PO .COMPLEX #8 01/20/23 tabs amoxicillin 875 mg-potassium 1 tab PO Q12H 7 days #14 tabs 03/14/23 clavulanate 125 mg tablet lidocaine HCl 2 % mucosal solution 1 applic mucous membrane BID PRN 03/14/23 (Lidocaine Viscous) pain #100 mL Allergies Allergy/AdvReac Type Severity Reaction Status Date / Time cephalexin [CEPHALEXIN] Allergy Mild rash Verified 01/20/23 08:56 ibuprofen [From Motrin] Allergy Mild Rash Verified 01/20/23 08:56 latex [LATEX] Allergy Mild Rash Verified 01/20/23 08:56 adhesive tape AdvReac Unknown Rash Verified 01/20/23 08:56 Review of Systems <Mariana Pulido PA-C - Last Filed: 03/14/23 12:22> Review of Systems Narrative: See HPI Patient History <Mariana Pulido PA-C - Last Filed: 03/14/23 12:22> Medical History Rosacea Kidney stone Migraine headache without aura Asthma Morbid obesity (08/15/15) Obstructive sleep apnea syndrome (03/31/15) Mixed anxiety depressive disorder (03/31/15) Type 2 diabetes mellitus with other specified complication (03/16/15) Polycystic ovaries Surgical History S/P tonsillectomy and adenoidectomy S/P tubal ligation S/P laparoscopic cholecystectomy S/P hysterectomy Family History Father Diabetes mellitus Mother Seizure Grandmother Coronary artery disease Social History marital status: details: harley España, lives in [place] household members: spouse lives independently: Yes caregiver/support person: No housing: house occupational status: employed Smoking Status: Current every day smoker quit status: not considering quitting alcohol intake: current substance use type: does not use Smoking Status: Current every day smoker tobacco type: vaping alcohol intake frequency: holidays/special occasions only Substance Use Type: does not use Exam <Mariana Pulido PA-C - Last Filed: 03/14/23 12:22> Initial Vital Signs Initial Vital Signs: Vital Signs Temperature 96.3 F L 03/14/23 11:34 Pulse Rate 70 03/14/23 11:34 Respiratory Rate 24 03/14/23 11:34 Blood Pressure 192/86 H 03/14/23 11:34 Pulse Oximetry 99 03/14/23 11:34 Oxygen Delivery Method Room Air 03/14/23 11:34 GENERAL: 48 year old patient appears stated age. Well-developed patient, in no acute distress. HEAD: Atraumatic. Normocephalic. EYES: Pupils equal round and reactive. No scleral icterus. No injection or drainage. ENT: Throat without erythema, tonsillar hypertrophy or exudate. Airway patent. TMs pearly marshall with good COL, Nontender to mastoid, tragus or pinna palpation. No abscess palpated inpatients cheek, there is a darkened area on the lateral side of patient's left upper molar. There is some light redness around patient's gum, but no appreciable swelling or discharge noted. NECK: Trachea midline. Non tender. No cervical lymphadenopathy noted RESPIRATORY: Patient is speaking comfortably in normal tone of voice, with no increased work of breathing. NEURO: AOx3. SKIN: No rash or erythema of visible areas <Susan Cota DO - Last Filed: 03/14/23 12:34> Initial Vital Signs Initial Vital Signs: Vital Signs Temperature 96.3 F L 03/14/23 11:34 Pulse Rate 70 03/14/23 11:34 Respiratory Rate 24 03/14/23 11:34 Blood Pressure 192/86 H 03/14/23 11:34 Pulse Oximetry 99 03/14/23 11:34 Oxygen Delivery Method Room Air 03/14/23 11:34 Course <Mariana Pulido PA-C - Last Filed: 03/14/23 12:22> Vital Signs Vital signs: Vital Signs - 8 hr 03/14/23 11:34 Temperature 96.3 F L Pulse Rate 70 Respiratory Rate 24 Blood Pressure 192/86 H Pulse Oximetry 99 Oxygen Delivery Method Room Air <Susan Cota DO - Last Filed: 03/14/23 12:34> Vital Signs Vital signs: Vital Signs - 8 hr 03/14/23 11:34 Temperature 96.3 F L Pulse Rate 70 Respiratory Rate 24 Blood Pressure 192/86 H Pulse Oximetry 99 Oxygen Delivery Method Room Air MDM - Dental/Oral <Mariana Pulido PA-C - Last Filed: 03/14/23 12:22> MDM Narrative Medical decision making narrative: Patient is a 48-year-old female with type 2 diabetes presenting for evaluation of symptoms consistent with tooth decay of her left upper molar. There is a small amount of gingivitis notices well, but no appreciable abscess or exudate or other discharge noted. She has no evidence of swelling in her neck and no report of difficulty breathing or swallowing. Suspicion is low for possible deep space neck infection. I will send in prescription to treat with Augmentin and topical lidocaine jelly for her pain. Blood pressure is elevated today in the ER which is likely due to her pain. Patient states she is treated with 5 mg of lisinopril for BP. We discussed follow up with her PCP concerning her elevated blood pressure. We also discussed concerning signs or symptoms to return for re-evaluation in the ER such as fever, difficulty swallowing, shortness of the breath or body aches or chills indicating concerning worsening infection. We discussed that she is to follow up with a dentist for further treatment and evaluation. Nurse discussed resources with patient including possible dentists which patient will try contacting for appointment.. Discharge Plan Departure Patient Disposition: Home Clinical Impression: Tooth decay Activity Restrictions/Additional Instructions: Thank you for coming in today for your care. You were diagnosed today with tooth decay of your left upper molar. I recommend treatment with amoxicillin/clavulanic acid (Augmentin) for 7 days. We discussed that you have not had any issues with this medicine in the past. For pain, you may continue Tylenol. I have also provided a prescription of lidocaine jelly which you may place over your sore gum. We discussed signs of complication including fever, body aches, chills, or difficulty swallowing which would necessitate emergency evaluation. Otherwise, recommend follow up with a dentist for further evaluation and treatment. Prescriptions: New amoxicillin-pot clavulanate 875-125 mg tablet 1 tab PO Q12H 7 Days Qty: 14 0RF lidocaine HCl [Lidocaine Viscous] 2 % solution 1 applic mucous membrane BID PRN (Reason: pain) Qty: 100 0RF No Action cholecalciferol (vitamin D3) [Vitamin D3] 2,000 UNIT tablet 1 tab PO QDAY Qty: 90 3RF [place] 5/16 Inch SQ HS Qty: 50 (DME) Lancets TRUPLUS 0 .Route .MEDSUPPLY Qty: 100 2RF Dose Instruction: As directed Rx Instructions: USE TO CHECK BLOOD SUGAR 4 TIMES A DAY. PT DUE FOR F/UP W/PCP PRIOR TO FUTURE FILLS. PLEASE CALL TO SCHED FUTURE APPT. THANK YOU. 09/15/19 atorvastatin 40 mg tablet 40 mg PO DAILY Qty: 90 3RF lisinopril [Zestril] 5 mg tablet 5 mg PO QDAY Qty: 90 3RF (DME) pen needle, diabetic [Unifine Pentips Plus] 31 gauge x 5/16 needle See Rx Instructions .ROUTE .MEDSUPPLY Qty: 100 0RF Rx Instructions: Use as directed for insulin shots. glyburide 5 mg tablet 5 mg PO BID Qty: 180 1RF albuterol sulfate [Ventolin HFA] 90 mcg/actuation HFA aerosol inhaler 2 puff INHALATION Q4-6H PRN (Reason: shortness of breath) Qty: 18 5RF azithromycin 250 mg tablet See Rx Instructions PO .COMPLEX Qty: 8 0RF Rx Instructions: TAKE 2 ON DAY 1, THEN 1 DAILY FOR 6 ADDITIONAL DAYS PO magnesium citrate 125 mg capsule 375 mg PO BEDTIME albuterol sulfate 2.5 mg /3 mL (0.083 %) solution for nebulization 2.5 mg continuous nebulization Q6H Qty: 15 3RF clonazepam [Klonopin] 1 mg tablet 1 mg PO BID Qty: 180 3RF Victoza 3-Ziggy 0.6 mg/0.1 mL (18 mg/3 mL) pen injector 1.8 mg SUBCUT DAILY Patient Comments: inject 1.8 milligram subcutaneously daily for 14 days Toujeo Max U-300 SoloStar 300 unit/mL (3 mL) insulin pen 150 unit SUBCUT DAILY aspirin 81 mg Capsule 81 mg PO DAILY fluconazole 150 mg tablet 150 mg PO Q3D PRN (Reason: Rash) (DME) Resmed Aircurve 10 BIPAP Qty: 1 Dose Instruction: As directed Patient Comments: Pressure: IPAP 20 EPAP 12 DME: [facility] Rx Instructions: As directed Referrals: Vic Brothers MD [Primary Care Provider] - Stand Alone Forms: Patient Portal/API ED Sign-out <Susan Cota DO - Last Filed: 03/14/23 12:34> Cosign ED Attending Coskalpanaature Attestation: I was immediately available in the department for consultation.
== END 2023-03-14 12:20 | disposition home or self-care (01) ==
PROVIDERS: Emergency Provider Physician Assistant; PCP Internal Medicine
DX: K02.9 Dental caries, unspecified (principal); Z79.899 Other long term (current) drug therapy
CPT/HCPCS: 99281

== ENCOUNTER 2023-03-17 07:57 | Emergency (ER) | payer OTHER, MEDICAID, SELFPAY ==
[2023-03-17 08:04] VITALS: BP 160/79; PULSE 67; O2SAT 98
[2023-03-17 08:05] VITALS: BP 160/79; PULSE 67; RESP 20; TEMP 36.7; O2SAT 99; BMI 52.3
[2023-03-17 08:30] VITALS: PULSE 59; RESP 9; O2SAT 98
[2023-03-17 08:31] VITALS: BP 120/63; PULSE 59; O2SAT 97
--- NOTE | 2023-03-17 08:45 | ED.ALLEREA ---
HPI - Allergic Reaction General Chief complaint: Allergic Reaction Stated complaint: allergic reaction to atibiotics Time Seen by Provider: 03/17/23 07:58 Source: patient Mode of arrival: Ambulatory History of Present Illness HPI narrative: 48-year-old female presents for 2 days of subjective fevers, nasal congestion, nonproductive cough. Patient recently given antibiotics for dental infection, she is concerned that her symptoms are a side effect of the antibiotic she was prescribed. Has been taking DayQuil without significant relief. Related Data Home Medications Medication Instructions Recorded Confirmed [place] 5/16 Inch units SQ HS ##50 08/07/16 01/20/23 Resmed Aircurve 10 BIPAP #1 ea 06/16/18 01/20/23 magnesium citrate 125 mg capsule 375 mg PO BEDTIME 01/26/19 01/20/23 aspirin 81 mg capsule 81 mg PO DAILY 10/01/22 01/20/23 fluconazole 150 mg tablet 150 mg PO Q3D PRN Rash 10/01/22 01/20/23 insulin glargine U-300 conc 300 150 unit SUBCUT DAILY 10/01/22 01/20/23 unit/mL (3 mL) subcutaneous pen (Toujeo Max U-300 SoloStar) liraglutide 0.6 mg/0.1 mL (18 mg/3 1.8 mg SUBCUT DAILY 10/01/22 01/20/23 mL) subcutaneous pen injector (Victoza 3-Ziggy) Previous Rx's Medication Instructions Recorded cholecalciferol (vitamin D3) 50 1 tab PO QDAY #90 tabs 02/29/16 mcg (2,000 unit) tablet (Vitamin D3) Lancets TRUPLUS #100 ea 09/15/19 atorvastatin 40 mg tablet 40 mg PO DAILY #90 tabs 12/13/19 lisinopril 5 mg tablet (Zestril) 5 mg PO QDAY #90 tabs 06/26/20 pen needle, diabetic 31 gauge x #100 ea 08/31/21 5/16 (Unifine Pentips Plus) albuterol sulfate 2.5 mg/3 mL 2.5 mg (3 mL) continuous 06/25/22 (0.083 %) solution for nebulization nebulization Q6H #15 mL clonazepam 1 mg tablet (Klonopin) 1 mg PO BID #180 tabs 06/25/22 glyburide 5 mg tablet 5 mg PO BID #180 tabs 07/19/22 albuterol sulfate 90 mcg/actuation 2 puff inhalation Q4-6H PRN 09/13/22 aerosol inhaler (Ventolin HFA) shortness of breath #18 grams azithromycin 250 mg tablet See Rx Instructions PO .COMPLEX #8 01/20/23 tabs amoxicillin 875 mg-potassium 1 tab PO Q12H 7 days #14 tabs 03/14/23 clavulanate 125 mg tablet lidocaine HCl 2 % mucosal solution 1 applic mucous membrane BID PRN 03/14/23 (Lidocaine Viscous) pain #100 mL Allergies Allergy/AdvReac Type Severity Reaction Status Date / Time cephalexin [CEPHALEXIN] Allergy Mild rash Verified 01/20/23 08:56 ibuprofen [From Motrin] Allergy Mild Rash Verified 01/20/23 08:56 latex [LATEX] Allergy Mild Rash Verified 01/20/23 08:56 adhesive tape AdvReac Unknown Rash Verified 01/20/23 08:56 Review of Systems Review of Systems Narrative: Negative except as noted above Patient History Medical History Rosacea Kidney stone Migraine headache without aura Asthma Morbid obesity (08/15/15) Obstructive sleep apnea syndrome (03/31/15) Mixed anxiety depressive disorder (03/31/15) Type 2 diabetes mellitus with other specified complication (03/16/15) Polycystic ovaries Surgical History S/P tonsillectomy and adenoidectomy S/P tubal ligation S/P laparoscopic cholecystectomy S/P hysterectomy Family History Father Diabetes mellitus Mother Seizure Grandmother Coronary artery disease Social History marital status: details: harley España, lives in [place] household members: spouse lives independently: Yes caregiver/support person: No housing: house occupational status: employed Smoking Status: Current every day smoker quit status: not considering quitting alcohol intake: current substance use type: does not use Smoking Status: Current every day smoker tobacco type: vaping alcohol intake frequency: holidays/special occasions only Substance Use Type: does not use Exam Initial Vital Signs Initial Vital Signs: Vital Signs Pulse Rate 67 03/17/23 08:04 Blood Pressure 160/79 H 03/17/23 08:04 Pulse Oximetry 98 03/17/23 08:04 ?Const: Awake, alert, no acute distress, appears chronically unwell, older than stated age Cardiac: regular rate, regular rhythm RESP: unlabored, clear bilaterally, no wheezing GI: Atraumatic, soft, nontender, nondistended, no rebound, no guarding MSK: Atraumatic, full range of motion, pulses equal Skin: Warm, Dry, intact, no rashes Neuro: AO x3, CN II-XII grossly intact, moves all extremities Psych: affect normal, mood normal, not suicidal, not homicidal Course Orders Ordered: ED Orders 03/17/23 08:50 Covid-19 + FLU A/B + RSV - PCR Stat Vital Signs Vital signs: Vital Signs - 8 hr 03/17/23 08:04 03/17/23 08:04 03/17/23 08:05 Temperature 98.0 F Pulse Rate 67 67 Respiratory Rate 20 Blood Pressure 160/79 H 160/79 H Pulse Oximetry 98 99 Oxygen Delivery Method Room Air 03/17/23 08:30 03/17/23 08:31 03/17/23 08:31 Temperature Pulse Rate 59 L 59 L Respiratory Rate 9 L Blood Pressure 120/63 Pulse Oximetry 98 97 Oxygen Delivery Method 03/17/23 09:00 03/17/23 09:00 Temperature Pulse Rate 61 Respiratory Rate 14 Blood Pressure 124/74 Pulse Oximetry 98 Oxygen Delivery Method MDM - Allergic Reaction Differential Diagnosis Differential diagnosis: Likely allergic reaction, viral enanthem and other (viral syndrome) Lab Data Labs: Lab Results 03/17/23 Range/Units 08:50 SARS-CoV-2 (PCR) Positive H (Negative) Influenza A (RT-PCR) Flu a negative (NEGATIVE) Influenza B (RT-PCR) Flu b negative (NEGATIVE) RSV (PCR) Negative (Negative) MDM Narrative Medical decision making narrative: several days of viral symptoms. No evidence of allergic reaction or anaphylaxis. Tested positive for covid. DC with supportive care instructions. Discharge Plan Departure Patient Disposition: Home Clinical Impression: COVID-19 Instructions: COVID-19 Activity Restrictions/Additional Instructions: Today you tested positive for COVID-19. This is likely why you have had cold symptoms and a fever. Continue to take your antibiotics for your dental infection. You may take up to 4000 mg of Tylenol daily for fever and pain control. Prescriptions: No Action cholecalciferol (vitamin D3) [Vitamin D3] 2,000 UNIT tablet 1 tab PO QDAY Qty: 90 3RF [place] 5/16 Inch SQ HS Qty: 50 (DME) Lancets TRUPLUS 0 .Route .MEDSUPPLY Qty: 100 2RF Dose Instruction: As directed Rx Instructions: USE TO CHECK BLOOD SUGAR 4 TIMES A DAY. PT DUE FOR F/UP W/PCP PRIOR TO FUTURE FILLS. PLEASE CALL TO SCHED FUTURE APPT. THANK YOU. 09/15/19 atorvastatin 40 mg tablet 40 mg PO DAILY Qty: 90 3RF lisinopril [Zestril] 5 mg tablet 5 mg PO QDAY Qty: 90 3RF (DME) pen needle, diabetic [Unifine Pentips Plus] 31 gauge x 5/16 needle See Rx Instructions .ROUTE .MEDSUPPLY Qty: 100 0RF Rx Instructions: Use as directed for insulin shots. glyburide 5 mg tablet 5 mg PO BID Qty: 180 1RF albuterol sulfate [Ventolin HFA] 90 mcg/actuation HFA aerosol inhaler 2 puff INHALATION Q4-6H PRN (Reason: shortness of breath) Qty: 18 5RF azithromycin 250 mg tablet See Rx Instructions PO .COMPLEX Qty: 8 0RF Rx Instructions: TAKE 2 ON DAY 1, THEN 1 DAILY FOR 6 ADDITIONAL DAYS PO magnesium citrate 125 mg capsule 375 mg PO BEDTIME albuterol sulfate 2.5 mg /3 mL (0.083 %) solution for nebulization 2.5 mg continuous nebulization Q6H Qty: 15 3RF clonazepam [Klonopin] 1 mg tablet 1 mg PO BID Qty: 180 3RF amoxicillin-pot clavulanate 875-125 mg tablet 1 tab PO Q12H 7 Days Qty: 14 0RF lidocaine HCl [Lidocaine Viscous] 2 % solution 1 applic mucous membrane BID PRN (Reason: pain) Qty: 100 0RF Victoza 3-Ziggy 0.6 mg/0.1 mL (18 mg/3 mL) pen injector 1.8 mg SUBCUT DAILY Patient Comments: inject 1.8 milligram subcutaneously daily for 14 days Toujeo Max U-300 SoloStar 300 unit/mL (3 mL) insulin pen 150 unit SUBCUT DAILY aspirin 81 mg Capsule 81 mg PO DAILY fluconazole 150 mg tablet 150 mg PO Q3D PRN (Reason: Rash) (DME) Resmed Aircurve 10 BIPAP Qty: 1 Dose Instruction: As directed Patient Comments: Pressure: IPAP 20 EPAP 12 DME: [facility] Rx Instructions: As directed Referrals: Vic Brothers MD [Primary Care Provider] - Stand Alone Forms: Patient Portal/API
[2023-03-17 09:00] VITALS: BP 124/74; PULSE 61; RESP 14; O2SAT 98
[2023-03-17 09:30] VITALS: BP 135/67; PULSE 54; RESP 22; O2SAT 93
[2023-03-17 09:32] LABS: Influenza A - CEPHEID Flu A NEGATIVE (NEGATIVE); Influenza B - CEPHEID Flu B NEGATIVE (NEGATIVE); Respiratory Syncytial Virus Negative (Negative)
[2023-03-17 09:35] LABS: COVID-19 CEPHEID 4-PLEX PCR POSITIVE (Negative)
== END 2023-03-17 09:48 | disposition home or self-care (01) ==
PROVIDERS: Emergency Provider Emergency Medicine; PCP Internal Medicine
DX: U07.1 COVID-19 (principal); Z79.899 Other long term (current) drug therapy
CPT/HCPCS: 0241U; 99282

== ENCOUNTER 2023-09-26 11:20 | Emergency (ER) | payer SELFPAY ==
[2023-09-26] VITALS (8 sets, daily range): BP systolic 123–147; BP diastolic 70–92; PULSE 55–65; RESP 14–22; TEMP 36.4; O2SAT 94–99; BMI 51.2
--- NOTE | 2023-09-26 11:39 | EKG_ITS ---
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
--- NOTE | 2023-09-26 12:06 | ED.CHESTPAIN ---
HPI - Chest Pain General Chief Complaint: Chest Pain Stated Complaint: L arm sharp pain Time Seen by Provider: 09/26/23 11:44 History of Present Illness HPI narrative: Patient is a 48-year-old female history of obesity insulin-dependent diabetes hypertension presenting today with left shoulder and arm pain. She reports no injury. She went to bed normal last night she denies any sort of pulling pushing lifting that could have injured it yesterday. She says it definitely hurts to move she would sharp shooting pain down her arm. She denies any sort of neck pain she has not having chest pain or shortness of breath. No known coronary artery disease. Dad did of [place] in his 40s Related Data Home Medications Medication Instructions Recorded Confirmed [place] 5/16 Inch units SQ HS ##50 08/07/16 01/20/23 Resmed Aircurve 10 BIPAP #1 ea 06/16/18 01/20/23 magnesium citrate 125 mg capsule 375 mg PO BEDTIME 01/26/19 01/20/23 aspirin 81 mg capsule 81 mg PO DAILY 10/01/22 01/20/23 fluconazole 150 mg tablet 150 mg PO Q3D PRN Rash 10/01/22 01/20/23 insulin glargine U-300 conc 300 150 unit SUBCUT DAILY 10/01/22 01/20/23 unit/mL (3 mL) subcutaneous pen (Toujeo Max U-300 SoloStar) liraglutide 0.6 mg/0.1 mL (18 mg/3 1.8 mg SUBCUT DAILY 10/01/22 01/20/23 mL) subcutaneous pen injector (Victoza 3-Ziggy) Previous Rx's Medication Instructions Recorded cholecalciferol (vitamin D3) 50 1 tab PO QDAY #90 tabs 02/29/16 mcg (2,000 unit) tablet (Vitamin D3) Lancets TRUPLUS #100 ea 09/15/19 atorvastatin 40 mg tablet 40 mg PO DAILY #90 tabs 12/13/19 lisinopril 5 mg tablet (Zestril) 5 mg PO QDAY #90 tabs 06/26/20 pen needle, diabetic 31 gauge x #100 ea 08/31/21 5/16 (Unifine Pentips Plus) albuterol sulfate 2.5 mg/3 mL 2.5 mg (3 mL) continuous 06/25/22 (0.083 %) solution for nebulization nebulization Q6H #15 mL clonazepam 1 mg tablet (Klonopin) 1 mg PO BID #180 tabs 06/25/22 glyburide 5 mg tablet 5 mg PO BID #180 tabs 07/19/22 albuterol sulfate 90 mcg/actuation 2 puff inhalation Q4-6H PRN 09/13/22 aerosol inhaler (Ventolin HFA) shortness of breath #18 grams azithromycin 250 mg tablet See Rx Instructions PO .COMPLEX #8 01/20/23 tabs lidocaine HCl 2 % mucosal solution 1 applic mucous membrane BID PRN 03/14/23 (Lidocaine Viscous) pain #100 mL Allergies Allergy/AdvReac Type Severity Reaction Status Date / Time cephalexin [CEPHALEXIN] Allergy Mild rash Verified 01/20/23 08:56 ibuprofen [From Motrin] Allergy Mild Rash Verified 01/20/23 08:56 latex [LATEX] Allergy Mild Rash Verified 01/20/23 08:56 adhesive tape AdvReac Unknown Rash Verified 01/20/23 08:56 Patient History Medical History Rosacea Kidney stone Migraine headache without aura Asthma Morbid obesity (08/15/15) Obstructive sleep apnea syndrome (03/31/15) Mixed anxiety depressive disorder (03/31/15) Type 2 diabetes mellitus with other specified complication (03/16/15) Polycystic ovaries Surgical History S/P tonsillectomy and adenoidectomy S/P tubal ligation S/P laparoscopic cholecystectomy S/P hysterectomy Family History Father Diabetes mellitus Mother Seizure Grandmother Coronary artery disease Social History marital status: details: harley España, lives in [place] household members: spouse lives independently: Yes caregiver/support person: No housing: house occupational status: employed Smoking Status: Current every day smoker quit status: not considering quitting alcohol intake: current substance use type: does not use Smoking Status: Current every day smoker tobacco type: vaping alcohol intake frequency: holidays/special occasions only Substance Use Type: does not use Exam Initial Vital Signs Initial Vital Signs: Vital Signs Temperature 97.6 F 09/26/23 11:24 Pulse Rate 65 09/26/23 11:24 Respiratory Rate 16 09/26/23 11:24 Blood Pressure 147/76 H 09/26/23 11:24 Pulse Oximetry 99 09/26/23 11:24 Oxygen Delivery Method Room Air 09/26/23 11:24 GENERAL: Alert 48-year-old female appears uncomfortable HEENT: Head atraumatic,EOMI, pupils reactive, face symmetric, moist mucous membranes CARDIOVASCULAR: Regular rate and rhythm without murmurs, rubs or gallops. RESPIRATORY: Breath sounds equal bilaterally, no wheezes rales or rhonchi. ABDOMEN: Soft, nontender. Normoactive bowel sounds all 4 quadrants. No guarding or rebound. EXTREMITIES: Normal range of motion, no clubbing or edema. Neurovascularly intact Left upper extremity she is holding it close she just have pain in her left upper medial arm she is able to extend at the elbow but it does feel better in a flexed position distal radial pulse intact sensation over deltoid intact NEUROLOGICAL: Alert and oriented x4.Normal gait and speech. Cranial nerves II through XII grossly intact. SKIN: Warm, dry, no laceration, no petechiae, no rashes or lesions. Scores HEART Score Heart Score history: Slightly Suspicious Heart Score EKG: Normal Heart Score Age: 45-64 years old Heart Score risk factors: > 3 risk factors or hx of atherosclerotic disease Heart Score troponin: < or = to normal limit Heart Score Total: 3 Course Orders Ordered: ED Orders 09/26/23 11:35 Complete Blood Count AUTO DIFF Stat Comprehensive Metabolic Panel Stat Lipase Stat Troponin & CK Cardiac Panel Stat 09/26/23 11:40 EKG-12 Lead Stat 09/26/23 12:12 XR chest 1V Stat XR shoulder LT min 2V Stat Discontinued Medications Acetaminophen (Ofirmev) 1,000 mg in 100 mls @ 400 mls/hr IV NOW ONE Stop: 09/26/23 12:26 Last Infusion: 09/26/23 12:46 Dose: Infused Documented By: Admin: 09/26/23 12:23 Dose: 400 mls/hr Documented By: CTS Vital Signs Vital signs: Vital Signs - 8 hr 09/26/23 11:24 09/26/23 11:44 09/26/23 12:00 Temperature 97.6 F Pulse Rate 65 58 L 59 L Respiratory Rate 16 20 22 Blood Pressure 147/76 H Pulse Oximetry 99 98 98 Oxygen Delivery Method Room Air 09/26/23 12:29 09/26/23 12:29 09/26/23 12:30 Temperature Pulse Rate 59 L 59 L Respiratory Rate Blood Pressure 140/88 Pulse Oximetry 98 98 Oxygen Delivery Method 09/26/23 12:30 09/26/23 13:00 09/26/23 13:00 Temperature Pulse Rate 55 L Respiratory Rate 20 Blood Pressure 136/92 H 123/70 Pulse Oximetry 97 Oxygen Delivery Method 09/26/23 13:30 09/26/23 13:30 09/26/23 14:00 Temperature Pulse Rate 56 L 55 L Respiratory Rate 15 14 Blood Pressure 134/83 Pulse Oximetry 94 98 Oxygen Delivery Method 09/26/23 14:00 Temperature Pulse Rate Respiratory Rate Blood Pressure 145/85 H Pulse Oximetry Oxygen Delivery Method MDM - Chest Pain Lab Data 09/26/23 11:35 09/26/23 11:35 Labs: Lab Results 09/26/23 Range/Units 11:35 WBC 8.0 (4.5-11.0) X10^3/uL RBC 4.96 (4.0-5.2) X10^6/uL Hgb 15.1 (12.0-16.0) g/dL Hct 42.8 (36-46) % MCV 86.4 (80-100) fL MCH 30.4 (26-34) PG MCHC 35.2 (30-36) % RDW 14.6 (11.6-14.8) % Plt Count 305 (150-400) X10^3/uL Neut % (Auto) 57.6 (50-75) % Lymph % (Auto) 32.8 (25-40) % [place] % (Auto) 6.5 (3-14) % Eos % (Auto) 2.3 (2-4) % Baso % (Auto) 0.8 (0-2) % Neut # (Auto) 4600 (4352-7788) /uL Lymph # (Auto) 2600 (4602-1439) /uL [place] # (Auto) 500 (0-900) /uL Eos # (Auto) 200 (0-450) /uL Baso # (Auto) 100 (0-100) /uL Sodium 135 L (137-145) mmol/L Potassium 4.5 (3.4-5.1) mmol/L Chloride 103 (98-107) mmol/L Carbon Dioxide 24 (22-32) mmol/L BUN 8 (7-17) mg/dL Creatinine 0.60 (0.52-1.04) mg/dL Estimated GFR > 60 (>60) mL/min BUN/Creatinine Ratio 13.3 (6-22) Glucose 128 H (70-100) mg/dL Calcium 9.1 (8.4-10.2) mg/dL Total Bilirubin 1.1 (0.2-1.3) mg/dL AST 34 (14-36) IU/L ALT 31 (<35) IU/L Alkaline Phosphatase 54 (38-126) U/L Total Creatine Kinase 66 (30-135) U/L Troponin I < 0.012 (0.01-0.034) ng/mL Total Protein 7.2 (6.3-8.2) g/dL Albumin 4.2 (3.5-5.0) g/dL Globulin 3.0 (1.7-4.1) g/dL Albumin/Globulin Ratio 1.4 (1.0-2.8) Lipase 111 (23-300) U/L Imaging Data Chest x-ray: Radiologist's Impression: PROCEDURE: XR CHEST 1V INDICATIONS: chest pain TECHNIQUE: One view of the chest was acquired. COMPARISON: Merged With [facility], , XR CHEST 2V, 07/06/2018, 20:09. Merged With [facility], , XR CHEST 1V, 04/08/2018, 18:21. FINDINGS: Surgical changes and devices: None. Lungs and pleura: Lungs are clear. No pleural effusions or pneumothorax. Mediastinum: Mediastinal contours appear normal. Heart size is normal. Bones and chest wall: No suspicious bony lesions. Overlying soft tissues appear unremarkable. IMPRESSION: No acute cardiopulmonary abnormality is seen. Dictated by: Kye Ramsey M.D. on 09/26/2023 at 12:39 Approved by: Kye Ramsey M.D. on 09/26/2023 at 12:39 Extremity x-ray #1: Radiologist's Impression: PROCEDURE: XR SHOULDER LT MIN 2V INDICATIONS: pain TECHNIQUE: 3 views of the shoulder were acquired. COMPARISON: None. FINDINGS: Limited exam secondary to body habitus. Bones: No fractures or dislocations. No suspicious bony lesions. Visualized ribs appear intact. Soft tissues: No suspicious soft tissue calcifications. IMPRESSION: No acute osseous abnormality. If pain persists with conservative management, consider repeat x-ray in 10-14 days or cross-sectional imaging. Dictated by: Kye Ramsey M.D. on 09/26/2023 at 12:39 ECG Data Attestation: I personally reviewed and interpreted this ECG as follows: Prior ECG tracings: available for review Interpretation: Normal sinus rhythm rate 57 NH interval 184 QRS [address] changes or T-wave inversions MDM Narrative Medical decision making narrative: Patient 48-year-old female history of obesity insulin-dependent diabetes hypertension hyperlipidemia presenting today with arm pain. It is definitely worse with movement and palpation I suspect musculoskeletal although she does have risk factors for cardiac disease Blood work has been reviewed she is negative troponin, glucose 128 normal kidney function, normal liver function normal bilirubin Chest x-ray reviewed no acute cardiopulmonary process Shoulder x-ray did not show any bony abnormality EKG does not show any sort of ischemia At this time patient has sharp shooting pain down her left arm which I suspect is musculoskeletal ruled out cardiac disease. She was given Tylenol here in the ED she can not have NSAIDs. Recommend supportive care only Discharge Plan Departure Patient Disposition: Home Clinical Impression: Radiculopathy Activity Restrictions/Additional Instructions: *You have been diagnosed with neuropathy *What to do: *Continue to take medications as directed Tylenol 1000 mg every 6 hours if needed for [id number] pain *Follow up with your primary care provider in 2-3 days or call [phone] *Return to ER if you should have increasing pain numbness tingling weakness [or] any new, worsening or concerning symptoms Prescriptions: No Action cholecalciferol (vitamin D3) [Vitamin D3] 2,000 UNIT tablet 1 tab PO QDAY Qty: 90 3RF [place] 5/16 Inch SQ HS Qty: 50 (DME) Lancets TRUPLUS 0 .Route .MEDSUPPLY Qty: 100 2RF Dose Instruction: As directed Rx Instructions: USE TO CHECK BLOOD SUGAR 4 TIMES A DAY. PT DUE FOR F/UP W/PCP PRIOR TO FUTURE FILLS. PLEASE CALL TO SCHED FUTURE APPT. THANK YOU. 09/15/19 atorvastatin 40 mg tablet 40 mg PO DAILY Qty: 90 3RF lisinopril [Zestril] 5 mg tablet 5 mg PO QDAY Qty: 90 3RF (DME) pen needle, diabetic [Unifine Pentips Plus] 31 gauge x 5/16 needle See Rx Instructions .ROUTE .MEDSUPPLY Qty: 100 0RF Rx Instructions: Use as directed for insulin shots. glyburide 5 mg tablet 5 mg PO BID Qty: 180 1RF albuterol sulfate [Ventolin HFA] 90 mcg/actuation HFA aerosol inhaler 2 puff INHALATION Q4-6H PRN (Reason: shortness of breath) Qty: 18 5RF azithromycin 250 mg tablet See Rx Instructions PO .COMPLEX Qty: 8 0RF Rx Instructions: TAKE 2 ON DAY 1, THEN 1 DAILY FOR 6 ADDITIONAL DAYS PO magnesium citrate 125 mg capsule 375 mg PO BEDTIME albuterol sulfate 2.5 mg /3 mL (0.083 %) solution for nebulization 2.5 mg continuous nebulization Q6H Qty: 15 3RF clonazepam [Klonopin] 1 mg tablet 1 mg PO BID Qty: 180 3RF lidocaine HCl [Lidocaine Viscous] 2 % solution 1 applic mucous membrane BID PRN (Reason: pain) Qty: 100 0RF Victoza 3-Ziggy 0.6 mg/0.1 mL (18 mg/3 mL) pen injector 1.8 mg SUBCUT DAILY Patient Comments: inject 1.8 milligram subcutaneously daily for 14 days Toujeo Max U-300 SoloStar 300 unit/mL (3 mL) insulin pen 150 unit SUBCUT DAILY aspirin 81 mg Capsule 81 mg PO DAILY fluconazole 150 mg tablet 150 mg PO Q3D PRN (Reason: Rash) (DME) Resmed Aircurve 10 BIPAP Qty: 1 Dose Instruction: As directed Patient Comments: Pressure: IPAP 20 EPAP 12 DME: [facility] Rx Instructions: As directed Referrals: Vic Brothers MD [Primary Care Provider] - Stand Alone Forms: Patient Portal/API
--- NOTE | 2023-09-26 12:12 | DI.RAD.S_ITS ---
PROCEDURE: XR CHEST 1V INDICATIONS: chest pain TECHNIQUE: One view of the chest was acquired. COMPARISON: [facility], CR, XR CHEST 2V, 07/06/2018, 20:09. [facility], CR, XR CHEST 1V, 04/08/2018, 18:21. FINDINGS: Surgical changes and devices: None. Lungs and pleura: Lungs are clear. No pleural effusions or pneumothorax. Mediastinum: Mediastinal contours appear normal. Heart size is normal. Bones and chest wall: No suspicious bony lesions. Overlying soft tissues appear unremarkable. IMPRESSION: No acute cardiopulmonary abnormality is seen. Dictated by: Kye Ramsey M.D. on 09/26/2023 at 12:39 Approved by: Kye Ramsey M.D. on 09/26/2023 at 12:39
--- NOTE | 2023-09-26 12:12 | DI.RAD.S_ITS ---
PROCEDURE: XR SHOULDER LT MIN 2V INDICATIONS: pain TECHNIQUE: 3 views of the shoulder were acquired. COMPARISON: None. FINDINGS: Limited exam secondary to body habitus. Bones: No fractures or dislocations. No suspicious bony lesions. Visualized ribs appear intact. Soft tissues: No suspicious soft tissue calcifications. IMPRESSION: No acute osseous abnormality. If pain persists with conservative management, consider repeat x-ray in 10-14 days or cross-sectional imaging. Dictated by: Kye Ramsey M.D. on 09/26/2023 at 12:39 Approved by: Kye Ramsey M.D. on 09/26/2023 at 12:40
[2023-09-26] MEDS: ACETAMINOPHEN IV 1,000 MG/100 ML VIAL 400 MG IV (12:23)
[2023-09-26 12:30] LABS: Add Manual Diff / Slide Review NO; Basophils Absolute Auto 100 /uL (0-100); Basophils Percent Auto 0.8 % (0-2); Eosinophils Absolute Auto 200 /uL (0-450); Eosinophils Percent Auto 2.3 % (2-4); Hematocrit 42.8 % (36-46); Hemoglobin 15.1 g/dL (12.0-16.0); Lymphocytes Absolute Auto 2600 /uL (1100-4500); Lymphocytes Percent Auto 32.8 % (25-40); Mean Corpuscular HGB Conc 35.2 % (30-36); Mean Corpuscular Hemoglobin 30.4 PG (26-34); Mean Corpuscular Volume 86.4 fL (80-100); Monocytes Absolute Auto 500 /uL (0-900); Monocytes Percent Auto 6.5 % (3-14); Neutrophils Absolute Auto 4600 /uL (1500-7000); Neutrophils Percent Auto 57.6 % (50-75); Platelet Count 305 X10^3/uL (150-400); Red Blood Cell Count 4.96 X10^6/uL (4.0-5.2); Red Cell Distribution Width 14.6 % (11.6-14.8)
[2023-09-26 12:47] LABS: Alanine Aminotransferase 31 IU/L (<35); Albumin 4.2 g/dL (3.5-5.0); Albumin Globulin Ratio 1.4 (1.0-2.8); Alkaline Phosphatase 54 U/L (38-126); Aspartate Aminotransferase 34 IU/L (14-36); BUN Creatinine Ratio 13.3 (6-22); Bilirubin Total 1.1 mg/dL (0.2-1.3); Blood Urea Nitrogen 8 mg/dL (7-17); Calcium 9.1 mg/dL (8.4-10.2); Carbon Dioxide 24 mmol/L (22-32); Chloride 103 mmol/L (98-107); Creatine Kinase 66 U/L (30-135); Estimated Glomerular Filt Rate > 60 mL/min (>60); Glucose 128 mg/dL (70-100); Lipase 111 U/L (23-300); Sodium 135 mmol/L (137-145); Total Protein 7.2 g/dL (6.3-8.2)
[2023-09-26 12:53] LABS: HEMOLYSIS 89 (0-50); Potassium 4.5 mmol/L (3.4-5.1)
[2023-09-26 12:59] LABS: Troponin I < 0.012 ng/mL (0.01-0.034)
== END 2023-09-26 14:12 | disposition home or self-care (01) ==
PROVIDERS: Emergency Provider Emergency Medicine; PCP Internal Medicine
DX: M54.10 Radiculopathy, site unspecified (principal); M25.512 Pain in left shoulder; R07.9 Chest pain, unspecified; Z79.899 Other long term (current) drug therapy
CPT/HCPCS: 71045; 73030; 80053; 82550; 83690; 84484; 85025; 93005; 96365; 99284; J0136

== ENCOUNTER 2024-06-05 13:59 | Emergency (ER) | payer SELFPAY ==
[2024-06-05 14:03] VITALS: BP 140/83; PULSE 90; RESP 18; TEMP 36.3; O2SAT 99; BMI 54.8
--- NOTE | 2024-06-05 14:08 | DI.RAD.S_ITS ---
PROCEDURE: XR KNEE LT 3V INDICATIONS: felt a pop/painful to walk TECHNIQUE: 3 views of the knee were acquired. COMPARISON: None. FINDINGS: Bones: No fractures or dislocations. Mild tricompartmental osteoarthritis is seen. No patellar subluxation. No suspicious bony lesions. Soft tissues: Small to moderate suprapatella joint effusion. No suspicious soft tissue calcifications. IMPRESSION: No acute left knee fracture or dislocation. Small to moderate suprapatellar joint effusion. Mild tricompartmental osteoarthritis. Dictated by: Neo Ndiaye M.D. on 06/05/2024 at 14:51 Approved by: Neo Ndiaye M.D. on 06/05/2024 at 14:52
--- NOTE | 2024-06-05 14:49 | ED_ITS ---
HPI - Extremity Injury (Lower) <Anna Proctor PA-C - Last Filed: 06/05/24 19:48> General Chief Complaint: Extremity Injury, Lower Stated Complaint: left knee popped and feels like needles Time Seen by Provider: 06/05/24 14:49 Source: patient Mode of arrival: Ambulatory History of Present Illness HPI Narrative: Ms. Dee is a pleasant 49-year-old female with a past medical history of type 2 diabetes, asthma, FLAVIO, neuropathy who presents to the emergency department for left knee pain since yesterday. Patient reports she was walking when her knee suddenly popped and she developed acute pain on the back and lateral aspect of her left knee. Reports that the pain persists and is worse with weight-bearing. States that she can not use crutches due to an old right ankle injury. Reports of the knee is mildly swollen. Denies any redness, bruising, wounds, fall or other injuries. She is interested in speaking with social work as she has not had insurance for the last year and can not afford to pay for her old prescriptions. Related Data Home Medications Medication Instructions Recorded Confirmed [employer] 5/16 Inch units SQ HS ##50 08/07/16 01/20/23 Resmed Aircurve 10 BIPAP #1 ea 06/16/18 01/20/23 magnesium citrate 125 mg capsule 375 mg PO BEDTIME 01/26/19 01/20/23 aspirin 81 mg capsule 81 mg PO DAILY 10/01/22 01/20/23 fluconazole 150 mg tablet 150 mg PO Q3D PRN Rash 10/01/22 01/20/23 insulin glargine U-300 conc 300 150 unit SUBCUT DAILY 10/01/22 01/20/23 unit/mL (3 mL) subcutaneous pen (Toujeo Max U-300 SoloStar) liraglutide 0.6 mg/0.1 mL (18 mg/3 1.8 mg SUBCUT DAILY 10/01/22 01/20/23 mL) subcutaneous pen injector (Victoza 3-Ziggy) Previous Rx's Medication Instructions Recorded cholecalciferol (vitamin D3) 50 1 tab PO QDAY #90 tabs 02/29/16 mcg (2,000 unit) tablet (Vitamin D3) Lancets TRUPLUS #100 ea 09/15/19 atorvastatin 40 mg tablet 40 mg PO DAILY #90 tabs 12/13/19 lisinopril 5 mg tablet (Zestril) 5 mg PO QDAY #90 tabs 06/26/20 pen needle, diabetic 31 gauge x #100 ea 08/31/2107/09 (Unifine Pentips Plus) albuterol sulfate 2.5 mg/3 mL 2.5 mg (3 mL) continuous 06/25/22 (0.083 %) solution for nebulization nebulization Q6H #15 mL clonazepam 1 mg tablet (Klonopin) 1 mg PO BID #180 tabs 06/25/22 glyburide 5 mg tablet 5 mg PO BID #180 tabs 07/19/22 albuterol sulfate 90 mcg/actuation 2 puff inhalation Q4-6H PRN 09/13/22 aerosol inhaler (Ventolin HFA) shortness of breath #18 grams azithromycin 250 mg tablet See Rx Instructions PO .COMPLEX #8 01/20/23 tabs lidocaine HCl 2 % mucosal solution 1 applic mucous membrane BID PRN 03/14/23 (Lidocaine Viscous) pain #100 mL Allergies Allergy/AdvReac Type Severity Reaction Status Date / Time cephalexin [CEPHALEXIN] Allergy Mild rash Verified 01/20/23 08:56 ibuprofen [From Motrin] Allergy Mild Rash Verified 01/20/23 08:56 latex [LATEX] Allergy Mild Rash Verified 01/20/23 08:56 adhesive tape AdvReac Unknown Rash Verified 01/20/23 08:56 Review of Systems <Anna Proctor PA-C - Last Filed: 06/05/24 19:48> Review of Systems ROS Unobtainable: All systems reviewed & are unremarkable except as noted in HPI and below Patient History <Anna Proctor PA-C - Last Filed: 06/05/24 19:48> Medical History Rosacea Kidney stone Migraine headache without aura Asthma Morbid obesity (08/15/15) Obstructive sleep apnea syndrome (03/31/15) Mixed anxiety depressive disorder (03/31/15) Type 2 diabetes mellitus with other specified complication (03/16/15) Polycystic ovaries Surgical History S/P tonsillectomy and adenoidectomy S/P tubal ligation S/P laparoscopic cholecystectomy S/P hysterectomy Family History Father Diabetes mellitus Mother Seizure Grandmother Coronary artery disease Social History marital status: details: harley [place], lives in [place] household members: spouse lives independently: Yes caregiver/support person: No housing: house occupational status: employed quit status: not considering quitting alcohol intake: current substance use type: does not use tobacco type: vaping alcohol intake frequency: holidays/special occasions only Exam <Anna Proctor PA-C - Last Filed: 06/05/24 19:48> Narrative Exam Narrative: GENERAL: 49 year old patient appears stated age. Obese patient, in no acute distress. HEAD: Atraumatic. Normocephalic. CARDIOVASCULAR: Regular rate RESPIRATORY: ?Nonlabored respirations. ?Speaking in clear, full sentences. EXTREMITIES: Mild edema of left knee. Tenderness palpation of the prepatellar and lateral knee in addition to the popliteal fossa. No obvious deformities, no redness, no increased warmth, no reproducible joint laxity. She does have full range of motion but pain is exacerbated with flexion. NEURO: AOx3. ?Clear speech. ?SITLT on BL LE. SKIN: No rash or erythema of visible areas Initial Vital Signs Initial Vital Signs: Vital Signs Temperature 97.4 F L 06/05/24 14:03 Pulse Rate 90 06/05/24 14:03 Respiratory Rate 18 06/05/24 14:03 Blood Pressure 140/83 06/05/24 14:03 Pulse Oximetry 99 06/05/24 14:03 Oxygen Delivery Method Room Air 06/05/24 14:03 <Raven Ly DO - Last Filed: 06/08/24 01:34> Initial Vital Signs Initial Vital Signs: Vital Signs Temperature 97.4 F L 06/05/24 14:03 Pulse Rate 90 06/05/24 14:03 Respiratory Rate 18 06/05/24 14:03 Blood Pressure 140/83 06/05/24 14:03 Pulse Oximetry 99 06/05/24 14:03 Oxygen Delivery Method Room Air 06/05/24 14:03 Course <Anna Proctor PA-C - Last Filed: 06/05/24 19:48> Orders Ordered: ED Orders 06/05/24 14:08 XR knee LT 3V Stat 06/05/24 14:16 Consult to [facility] Exhibit Specialist Stat Vital Signs Vital signs: Vital Signs - 8 hr 06/05/24 14:03 06/05/24 15:46 06/05/24 17:05 Temperature 97.4 F L 98.2 F Pulse Rate 90 76 Pulse Rate [Left Dorsalis Pedis] 77 Respiratory Rate 18 18 Blood Pressure 140/83 136/76 Pulse Oximetry 99 99 Oxygen Delivery Method Room Air Room Air <Raven Ly DO - Last Filed: 06/08/24 01:34> Orders Ordered: ED Orders 06/05/24 14:08 XR knee LT 3V Stat 06/05/24 14:16 Consult to [facility] Exhibit Specialist Stat Vital Signs Vital signs: Vital Signs - 8 hr 06/05/24 14:03 06/05/24 15:46 06/05/24 17:05 Temperature 97.4 F L 98.2 F Pulse Rate 90 76 Pulse Rate [Left Dorsalis Pedis] 77 Respiratory Rate 18 18 Blood Pressure 140/83 136/76 Pulse Oximetry 99 99 Oxygen Delivery Method Room Air Room Air MDM - Extremity Injury (Lower) <Anna Proctor PA-C - Last Filed: 06/05/24 19:48> Imaging Data Left Knee X-Ray: Radiologist's Impression: PROCEDURE: XR KNEE LT 3V INDICATIONS: felt a pop/painful to walk TECHNIQUE: 3 views of the knee were acquired. COMPARISON: None. FINDINGS: Bones: No fractures or dislocations. Mild tricompartmental osteoarthritis is seen. No patellar subluxation. No suspicious bony lesions. Soft tissues: Small to moderate suprapatella joint effusion. No suspicious soft tissue calcifications. IMPRESSION: No acute left knee fracture or dislocation. Small to moderate suprapatellar joint effusion. Mild tricompartmental osteoarthritis. MDM Narrative Medical decision making narrative: 49-year-old female with a past medical history of type 2 diabetes, asthma, FLAVIO, neuropathy who presents to the emergency department for left knee pain since yesterday. Differential diagnosis includes but is not limited to osteoarthritis, meniscus injury, ligament injury, sprain, strain, fracture, dislocation, etc. On exam patient is in no acute distress, nontoxic appearing, vital signs appropriate. Patient had acute injury of left knee yesterday associated with popping sound and sensation, now with exacerbated pain with weight-bearing. X- ray left knee obtained. Patient is also interested in speaking with the psychologist social because she has not been taking her insulin for the last year due to cost/insurance reasons. Patient states ?her makes too much money? which caused her to lose her insurance. States that she often has elevated glucoses at home as high as the 400s. Today she has not having any AMS, abdominal pain, SOB, nausea or vomiting, or concerns other than her left knee pain. Do not believe it is appropriate try to acutely lower a chronically elevated glucose. Social work was able to meet with the patient and advised that she registers for Medicaid. Patient declines pain medication, crutches. X-ray reveals no acute left knee fracture dislocation. Small to moderate suprapatellar joint effusion. Mild tricompartmental osteoarthritis. I am concerned that her pain is related to a soft tissue injury in addition to her osteoarthritis. After shared decision-making, she felt most comfortable with left knee immobilizer which was applied. Discussed rice therapy, ibuprofen and acetaminophen, supportive care, follow up with Orthopedics and PCP. Also discussed the importance of prompt follow up with PCP for management of her chronic conditions. Discussed strict ED return precautions. Patient verbalized understanding of all information is agreeable with the plan. She is stable for discharge home. Discharge Plan Departure Patient Disposition: Home Clinical Impression: Tricompartment osteoarthritis of left knee, Effusion of knee joint, left Instructions: DI for Knee Sprain Activity Restrictions/Additional Instructions: Dear Ms. Dee, Thank you for coming to the emergency department, I am sorry that you injured her left knee. Your x-ray today revealed osteoarthritis of the left knee and a joint effusion. There is no fracture or dislocation. X-rays do not tell us about important soft tissues such as knee ligaments or the meniscus. Please use RICE therapy for your pain in addition to ibuprofen/acetaminophen. Rest the painful area. Ice the area of pain/swelling for at least 15 minutes, 4x a day. Compress the area of swelling using a brace, wrap, or splint if applied. Elevate the painful or swollen extremity by supporting it above the level of the heart with pillows when sitting or laying. Please take Ibuprofen (Motrin/Advil) or Acetaminophen (Tylenol) for pain. These are available over the counter. You may take Ibuprofen 600 mg every 8 hours with food for pain. You may also take Acetaminophen 650 mg every 4-6 hours for pain. Do not exceed 3000 mg of Tylenol a day as this can cause liver damage. Do not drink alcohol with either of these medications. You may call to schedule an appointment with [facility] Orthoped[facility] for further evaluation of your left knee pain. They have an office in both [facility]. Please follow up with your primary care doctor within the next 2-3 days for ER follow-up. (If you do not have a PCP you can call [phone]. ?to schedule an appointment with an [facility] Primary Care Provider) IF YOU DEVELOP ANY NEW OR WORSENING SYMPTOMS, RETURN TO THE ER! Please read the attached instructions, they highlight more specific treatments and interventions for you at home. Thank you for letting me participate in your care, Anna Proctor PA-C Prescriptions: No Action cholecalciferol (vitamin D3) [Vitamin D3] 2,000 UNIT tablet 1 tab PO QDAY Qty: 90 3RF [employer] 5/16 Inch SQ HS Qty: 50 (DME) Lancets TRUPLUS 0 .Route .MEDSUPPLY Qty: 100 2RF Dose Instruction: As directed Rx Instructions: USE TO CHECK BLOOD SUGAR 4 TIMES A DAY. PT DUE FOR F/UP W/PCP PRIOR TO FUTURE FILLS. PLEASE CALL TO SCHED FUTURE APPT. THANK YOU. 09/15/19 atorvastatin 40 mg tablet 40 mg PO DAILY Qty: 90 3RF lisinopril [Zestril] 5 mg tablet 5 mg PO QDAY Qty: 90 3RF (DME) pen needle, diabetic [Unifine Pentips Plus] 31 gauge x 5/16 needle See Rx Instructions .ROUTE .MEDSUPPLY Qty: 100 0RF Rx Instructions: Use as directed for insulin shots. glyburide 5 mg tablet 5 mg PO BID Qty: 180 1RF albuterol sulfate [Ventolin HFA] 90 mcg/actuation HFA aerosol inhaler 2 puff INHALATION Q4-6H PRN (Reason: shortness of breath) Qty: 18 5RF azithromycin 250 mg tablet See Rx Instructions PO .COMPLEX Qty: 8 0RF Rx Instructions: TAKE 2 ON DAY 1, THEN 1 DAILY FOR 6 ADDITIONAL DAYS PO magnesium citrate 125 mg capsule 375 mg PO BEDTIME albuterol sulfate 2.5 mg /3 mL (0.083 %) solution for nebulization 2.5 mg continuous nebulization Q6H Qty: 15 3RF clonazepam [Klonopin] 1 mg tablet 1 mg PO BID Qty: 180 3RF lidocaine HCl [Lidocaine Viscous] 2 % solution 1 applic mucous membrane BID PRN (Reason: pain) Qty: 100 0RF Victoza 3-Ziggy 0.6 mg/0.1 mL (18 mg/3 mL) pen injector 1.8 mg SUBCUT DAILY Patient Comments: inject 1.8 milligram subcutaneously daily for 14 days Toujeo Max U-300 SoloStar 300 unit/mL (3 mL) insulin pen 150 unit SUBCUT DAILY aspirin 81 mg Capsule 81 mg PO DAILY fluconazole 150 mg tablet 150 mg PO Q3D PRN (Reason: Rash) (DME) Resmed Aircurve 10 BIPAP Qty: 1 Dose Instruction: As directed Patient Comments: Pressure: IPAP 20 EPAP 12 DME: [facility] Rx Instructions: As directed Referrals: Vic Brothers MD [Primary Care Provider] - Stand Alone Forms: Patient Portal/API/Survey ED Sign-out <Raven Ly DO - Last Filed: 06/08/24 01:34> Cosign ED Attending Coskalpanaature Attestation: I was available for consultation.
[2024-06-05 15:46] VITALS: PULSE 77
--- NOTE | 2024-06-05 16:26 | CM.SWNOTE ---
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 Patient endorses she doesn't have insurance because she cannot afford it. Patient states she has not seen her PCP in a few years and not been taking all rx. Patient's PCP is Dr. Brothers. Patient reports she is going to divorce her so she can apply and qualify for Medicaid. Patient endorses plan to proceed with this process soon and once she gets Medicaid she will schedule PCP appt. Latonya packet is provided to patient. Patient denies any need for any resources [place] [facility] [place] Plan: patient to d/c to [place] upon medical clearance, patient to apply for Medicaid and f/u with PCP. KIERRA FarrSW
[2024-06-05 17:05] VITALS: BP 136/76; PULSE 76; RESP 18; TEMP 36.8; O2SAT 99
== END 2024-06-05 17:06 | disposition home or self-care (01) ==
PROVIDERS: Emergency Provider Physician Assistant; PCP Internal Medicine
DX: M17.12 Unilateral primary osteoarthritis, left knee (principal); M25.462 Effusion, left knee
CPT/HCPCS: 73562; 99282; 99283

== ENCOUNTER → 2024-09-24 10:38 | Outpatient (CLI) | payer OTHER, SELFPAY ==
[2024-09-24 11:10] LABS: Hemoglobin A1C% w Est Avg Glu 8.1 % (4.0-6.0)
[2024-09-24 11:11] LABS: Hematocrit 40.3 % (36-46); Hemoglobin 14.2 g/dL (12.0-16.0); Mean Corpuscular HGB Conc 35.4 % (30-36); Mean Corpuscular Hemoglobin 30.9 PG (26-34); Mean Corpuscular Volume 87.3 fL (80-100); Platelet Count 258 X10^3/uL (150-400)
[2024-09-24 11:12] LABS: Add Manual Diff / Slide Review YES
[2024-09-24 11:25] LABS: Alanine Aminotransferase 32 IU/L (<35); Albumin 4.0 g/dL (3.5-5.0); Albumin Globulin Ratio 1.6 (1.0-2.8); Alkaline Phosphatase 60 U/L (38-126); Blood Urea Nitrogen 10 mg/dL (7-17); Calcium 8.9 mg/dL (8.4-10.2); Carbon Dioxide 23 mmol/L (22-32); Chloride 104 mmol/L (98-107); Cholesterol 141 mg/dL (140-199); Estimated Glomerular Filt Rate > 60 mL/min (>60); Globulin 2.5 g/dL (1.7-4.1); Glucose 214 mg/dL (70-99); HDL Cholesterol 22 mg/dL (40-60); HEMOLYSIS 17 (0-50); Potassium 4.2 mmol/L (3.4-5.1); Sodium 135 mmol/L (137-145); Total Protein 6.5 g/dL (6.3-8.2); Triglycerides 299 mg/dL (35-150)
[2024-09-24 11:42] LABS: Eosinophils Percent Manual 1.0 % (2-4); Lymphocytes Percent Manual 22.0 % (25-45); Monocytes Percent Manual 3.0 % (2-11); Neutrophils Absolute Manual 6068 /uL (3000-5900); RBC Morphology Normal Morphology; Segmented Neutrophils Percent 74.0 % (38-70); Total Cells Counted 100
[2024-09-24 11:52] LABS: TSH w/ Reflex to FT4 0.75 uIU/mL (0.47-4.68)
== END ==
PROVIDERS: PCP Internal Medicine; Referring Provider Internal Medicine; Visit Provider Internal Medicine
DX: E11.65 Type 2 diabetes mellitus with hyperglycemia (principal); Z79.4 Long term (current) use of insulin; E66.01 Morbid (severe) obesity due to excess calories; R59.1 Generalized enlarged lymph nodes; E78.1 Pure hyperglyceridemia; D64.9 Anemia, unspecified; E03.9 Hypothyroidism, unspecified
CPT/HCPCS: 36415; 80053; 80061; 83036; 84443; 85007; 85025; 85651; 86140

== ENCOUNTER → 2024-12-15 08:24 | Outpatient (CLI) | payer OTHER, SELFPAY ==
[2024-12-15 09:30] LABS: Hemoglobin A1C% w Est Avg Glu 7.7 % (4.0-6.0)
[2024-12-15 09:31] LABS: Alanine Aminotransferase 32 IU/L (<35); Albumin 4.3 g/dL (3.5-5.0); Albumin Globulin Ratio 1.5 (1.0-2.8); Alkaline Phosphatase 72 U/L (38-126); Blood Urea Nitrogen 11 mg/dL (7-17); Calcium 9.5 mg/dL (8.4-10.2); Carbon Dioxide 23 mmol/L (22-32); Chloride 99 mmol/L (98-107); Estimated Glomerular Filt Rate > 60 mL/min (>60); Globulin 2.9 g/dL (1.7-4.1); Glucose 226 mg/dL (70-99); HEMOLYSIS 17 (0-50); Potassium 4.1 mmol/L (3.4-5.1); Sodium 136 mmol/L (137-145); Total Protein 7.2 g/dL (6.3-8.2)
== END ==
PROVIDERS: PCP Internal Medicine; Referring Provider Internal Medicine; Visit Provider Internal Medicine
DX: E11.65 Type 2 diabetes mellitus with hyperglycemia (principal); Z79.4 Long term (current) use of insulin
CPT/HCPCS: 36415; 80053; 83036